=== PATIENT | male | born 1980 | race American Indian/Alaskan Native ===

== ENCOUNTER 2016-12-09 11:22 | Inpatient (IN) | payer MEDICAID ==
[2016-12-09] MEDS ORDERED: ATROVENT IH ONE (12:55)
[2016-12-09] MEDS ORDERED: XOPENEX IH ONE (12:55)
[2016-12-09] MEDS ORDERED: LASIX IV ONE (12:55)
[2016-12-09] MEDS ORDERED: ZOFRAN IV ONE (13:09)
[2016-12-09] MEDS ORDERED: MORPHINE IV ONE (13:09)
--- NOTE | 2016-12-09 13:14 | Emergency Department Report ---
ED Shortness of Breath HPI - General Chief Complaint: Dyspnea/Respdistress Stated Complaint: DIFF BREATHING/CHEST PAIN Time Seen by Provider: 12/09/16 12:46 Source: patient, EMS Mode of arrival: Stretcher Limitations: No Limitations - History of Present Illness Initial Comments: 36 yo male with a past medical history HIV, CHF, COPD, cardiomyopathy, sleep apnea, end-stage disease on dialysis, and hypertension presents to the hospital with complaints of shortness of breath since 4 AM. Use oxygen 4 L OF time and CPAP at night. He states the CPAP helped his breathing until it acutely worsened again at 7 AM. Several days of cough productive of green-yellow sputum reported without fever. Patient typically goes to dialysis Saturday, , and Saturday. This week he went and Saturday due to mixup of the days. Patient complains of generalized body aches and requesting morphine. PMD: Dr. Hernandez parent partner: Dr. Costa - Related Data Home Medications Medication Instructions Recorded Confirmed Last Taken AtorvaSTATin [Lipitor] 40 mg PO DAILY 09/02/16 11/17/16 09/20/16 lamiVUDine [Epivir] 50 mg PO DAILY 09/02/16 11/17/16 09/20/16 Gabapentin [Neurontin] 100 mg PO BID 09/10/16 11/17/16 09/20/16 Previous Rx's Medication Instructions Recorded Last Taken Type Abacavir [Ziagen TAB] 600 mg PO DAILY tablet 11/21/16 Unknown Rx Calcium Acetate [Phoslo] 667 mg PO TIDWM capsule 11/21/16 Unknown Rx Carvedilol [Coreg] 25 mg PO BID tablet 11/21/16 Unknown Rx Dapsone 100 mg PO BID tablet 11/21/16 Unknown Rx Darunavir [Prezista] 800 mg PO DAILY tablet 11/21/16 Unknown Rx Gabapentin [Neurontin] 100 mg PO BID capsule 11/21/16 Unknown Rx Ipratropium/Albuterol Sulfate 1 ampul IH TIDRT ampul.neb 11/21/16 Unknown Rx [Duoneb 0.5 mg-3 mg/3 ml Soln] Isosorbide Dinitrate [Isordil 40 mg PO Q8HR tablet 11/21/16 Unknown Rx Titradose] Levofloxacin [Levaquin TAB] 500 mg PO Q48HR #7 tablet 11/21/16 Unknown Rx Pantoprazole [Protonix TAB] 40 mg PO QDAY tablet 11/21/16 Unknown Rx Ritonavir [Norvir] 100 mg PO QDAY tab 11/21/16 Unknown Rx amLODIPine [Norvasc] 10 mg PO DAILY tablet 11/21/16 Unknown Rx hydrALAZINE [Apresoline TAB] 100 mg PO TID tab 11/21/16 Unknown Rx Allergies Allergy/AdvReac Type Severity Reaction Status Date / Time ILEANA Inhibitors Allergy Swelling Verified 08/13/15 00:13 acetaminophen [From Tylenol] Allergy Hives Verified 08/13/15 00:13 aspirin Allergy Hives Verified 08/13/15 00:13 egg Allergy Hives Verified 08/13/15 00:13 Egg Derived Allergy Hives Verified 08/13/15 00:13 fish derived Allergy Swelling Verified 08/13/15 00:13 ibuprofen Allergy Swelling Verified 08/13/15 00:13 Milk Containing Products Allergy Hives Verified 08/13/15 00:13 orange juice Allergy Hives Verified 08/13/15 00:13 Penicillins Allergy Hives Verified 08/13/15 00:13 PPD black rubber mix Allergy Swelling Verified 08/13/15 00:13 shellfish derived Allergy Hives Verified 08/13/15 00:13 tomato Allergy Vomiting Verified 08/13/15 00:13 ED Review of Systems ROS: Stated complaint: DIFF BREATHING/CHEST PAIN Other details as noted in HPI Comment: All other systems reviewed and negative Other: Constitutional: No fevers chills Eyes: No eye pain visual changes ENT: No ear pain or throat pain Neck: Denies pain Respiratory: As per HPI Cardiovascular: Denies chest pain, palpitations, syncope GI: Denies abdominal pain, nausea, vomiting, diarrhea : Denies dysuria, urine output Musculoskeletal: Denies back pain Skin: Denies rash, lesions, erythema Neurologic: Denies headache, numbness, weakness Psychiatric: Denies suicidal ideation, hallucinations ED Past Medical Hx - Past Medical History Hx Hypertension: Yes Hx Congestive Heart Failure: Yes Hx Diabetes: No Hx Renal Disease: Yes (ESRD on HD; LAV fistula) Hx Asthma: Yes Hx COPD: Yes Hx HIV: Yes Additional medical history: glaucoma, CAD - Surgical History Additional Surgical History: AV fistula L arm - Social History Smoking Status: Light Tobacco Smoker Substance Use Type: Cocaine - Medications Home Medications: Home Medications Medication Instructions Recorded Confirmed Last Taken Type AtorvaSTATin [Lipitor] 40 mg PO DAILY 09/02/16 11/17/16 09/20/16 History lamiVUDine [Epivir] 50 mg PO DAILY 09/02/16 11/17/16 09/20/16 History Gabapentin [Neurontin] 100 mg PO BID 09/10/16 11/17/16 09/20/16 History Abacavir [Ziagen TAB] 600 mg PO DAILY tablet 11/21/16 Unknown Rx Calcium Acetate [Phoslo] 667 mg PO TIDWM capsule 11/21/16 Unknown Rx Carvedilol [Coreg] 25 mg PO BID tablet 11/21/16 Unknown Rx Dapsone 100 mg PO BID tablet 11/21/16 Unknown Rx Darunavir [Prezista] 800 mg PO DAILY tablet 11/21/16 Unknown Rx Gabapentin [Neurontin] 100 mg PO BID capsule 11/21/16 Unknown Rx Ipratropium/Albuterol Sulfate 1 ampul IH TIDRT ampul.neb 11/21/16 Unknown Rx [Duoneb 0.5 mg-3 mg/3 ml Soln] Isosorbide Dinitrate [Isordil 40 mg PO Q8HR tablet 11/21/16 Unknown Rx Titradose] Levofloxacin [Levaquin TAB] 500 mg PO Q48HR #7 tablet 11/21/16 Unknown Rx Pantoprazole [Protonix TAB] 40 mg PO QDAY tablet 11/21/16 Unknown Rx Ritonavir [Norvir] 100 mg PO QDAY tab 11/21/16 Unknown Rx amLODIPine [Norvasc] 10 mg PO DAILY tablet 11/21/16 Unknown Rx hydrALAZINE [Apresoline TAB] 100 mg PO TID tab 11/21/16 Unknown Rx ED Physical Exam - General Limitations: No Limitations - Other Other exam information: General: No limitations, patient is alert in no acute distress Head exam: Atraumatic, normocephalic Eyes exam: Normal appearance, pupils equal reactive to light, extraocular movements intact ENT: Moist mucous membrane, normal oropharynx Neck exam: Normal inspection, full range of motion, no meningismus nontender Respiratory exam: Tachypnea, 88-87% on 4 L. Expiratory wheezing, diminished bs at bases Cardiovascular: Tachycardic regular rhythm Abdomen: Soft, nondistended, and nontender, with normal bowel sounds, no rebound, or guarding Extremity: Full range of motion, bilateral leg edema Back: Normal Inspection, full range of motion, no tenderness Neurologic: Alert, oriented x3, cranial nerves intact, no motor or sensory deficit Psychiatric: normal affect, normal mood Skin: Warm, dry, intact ED Course Vital Signs 12/09/16 12/09/16 12/09/16 12:50 13:15 13:21 Temperature 98.3 F Pulse Rate 115 H 114 H Pulse Rate [ 122 H Anterior Bilateral Throughout] Respiratory 24 37 H Rate Respiratory 37 H Rate [Anterior Bilateral Throughout] Blood Pressure 150/104 150/104 O2 Sat by Pulse 87 100 Oximetry 12/09/16 12/09/16 12/09/16 13:36 13:42 13:45 Temperature Pulse Rate 114 H 113 H Pulse Rate [ 115 H Anterior Bilateral Throughout] Respiratory 31 H 25 H Rate Respiratory 26 H Rate [Anterior Bilateral Throughout] Blood Pressure O2 Sat by Pulse 95 94 Oximetry - Consultations Consultation #1: 12/09/16 13:[address] Jett parent partner will arrange for dialysis today ED Medical Decision Making - Lab Data Result diagrams: 12/09/16 13:17 12/09/16 13:17 Lab Results 12/09/16 12/09/16 12/09/16 Range/Units 13:17 13:17 13:17 WBC 7.7 (4.5-11.0) K/mm3 RBC 3.53 L (3.65-5.03) M/mm3 Hgb 9.0 L (11.8-15.2) gm/dl Hct 29.5 L (35.5-45.6) % MCV 84 (84-94) fl MCH 26 L (28-32) pg MCHC 31 L (32-34) % RDW 24.6 H (13.2-15.2) % Plt Count 246 (140-440) K/mm3 Lymph % (Auto) 6.4 L (13.4-35.0) % Boyle % (Auto) 5.9 (0.0-7.3) % Eos % (Auto) 1.0 (0.0-4.3) % Baso % (Auto) 0.5 (0.0-1.8) % Lymph # 0.5 L (1.2-5.4) K/mm3 Boyle # 0.5 (0.0-0.8) K/mm3 Eos # 0.1 (0.0-0.4) K/mm3 Baso # 0.0 (0.0-0.1) K/mm3 Seg Neutrophils % 86.2 H (40.0-70.0) % Seg Neutrophils # 6.7 (1.8-7.7) K/mm3 Sodium 135 L (137-145) mmol/L Potassium 4.7 (3.6-5.0) mmol/L Chloride 95.7 L (98-107) mmol/L Carbon Dioxide 20 L (22-30) mmol/L Anion Gap 24 mmol/L BUN 67 H (9-20) mg/dL Creatinine 8.7 H (0.8-1.5) mg/dL Estimated GFR 8 ml/min BUN/Creatinine Ratio 7.70 % Glucose 112 H (75-100) mg/dL Calcium 8.8 (8.4-10.2) mg/dL Total Creatine Kinase 63 64 (55-170) units/L CK-MB (CK-2) 2.6 2.6 (0.0-4.0) ng/mL CK-MB (CK-2) Rel Index 4.1 H 4.0 (0-4) Troponin T 0.052 H (0.00-0.029) ng/mL - EKG Data -: EKG Interpreted by Me (sinus tach 114, lat t wave inv) - EKG Data When compared to previous EKG there are: no significant change - Radiology Data Radiology results: image reviewed (chest x-ray portable: Pulmonary edema) - Medical Decision Making Patient required BiPAP support in the ED. Also treated with morphine for pain, lasix, Zofran, Xopenex, Atrovent, and dose of Solu-Medrol. Case is discussed with parent partner and dialysis to be arranged for today. - Differential Diagnosis pulmonary edema, CHF, bronchitis, pneumonia, COPD Critical Care Time: No Critical care attestation.: If time is entered above; I have spent that time in minutes in the direct care of this critically ill patient, excluding procedure time. ED Disposition Clinical Impression: HIV positive, End-stage renal disease needing dialysis, Essential hypertension , O2 dependent Pulmonary edema Qualifiers: Chronicity: acute Qualified Code(s): J81.0 - Acute pulmonary edema COPD (chronic obstructive pulmonary disease) Qualifiers: COPD type: unspecified COPD Qualified Code(s): J44.9 - Chronic obstructive pulmonary disease, unspecified Disposition: OP ADMITTED IP TO THIS HOSP Is pt being admited?: Yes Condition: Stable Time of Disposition: 13:49 (Dr Buenrostro/hosp)
[2016-12-09 13:35] LABS: Basophils % (Auto) 0.5 % (0.0-1.8); Hematocrit 29.5 % (35.5-45.6); Mean Corpuscular HGB Conc 31 % (32-34); Mean Corpuscular Hemoglobin 26 pg (28-32); Mean Corpuscular Volume 84 fl (84-94); Platelet Count 246 K/mm3 (140-440); Red Blood Count 3.53 M/mm3 (3.65-5.03); Red Cell Distribution Width 24.6 % (13.2-15.2); White Blood Count 7.7 K/mm3 (4.5-11.0)
--- NOTE | 2016-12-09 13:35 | XRay Report ---
AP CHEST: HISTORY: Shortness of breath Moderate cardiomegaly and mild pulmonary edema are identified. Trace pleural effusions could be present. No pneumothorax. IMPRESSION: Cardiomegaly and pulmonary edema.
[2016-12-09] MEDS ORDERED: NACL 0.9% 1000 ML 100 ML IV PRN (13:48)
[2016-12-09 13:53] LABS: Creatine Kinase MB 2.6 ng/mL (0.0-4.0)
[2016-12-09 13:54] LABS: Creatine Kinase MB 2.6 ng/mL (0.0-4.0)
[2016-12-09 13:55] LABS: Blood Urea Nitrogen 67 mg/dL (9-20); Calcium 8.8 mg/dL (8.4-10.2); Carbon Dioxide 20 mmol/L (22-30); Chloride 95.7 mmol/L (98-107); Creatine Kinase 63 units/L (55-170); Glucose 112 mg/dL (75-100); Potassium 4.7 mmol/L (3.6-5.0); Sodium 135 mmol/L (137-145)
[2016-12-09 13:58] LABS: Anion Gap 24 mmol/L
[2016-12-09 14:14] LABS: Cholesterol 102 mg/dL (50-199); HDL Cholesterol 44 mg/dL (40-59); LDL Cholesterol,Direct 41 mg/dL (50-130); Triglycerides 86 mg/dL (2-149)
--- NOTE | 2016-12-09 15:56 | History and Physical Report ---
History of Present Illness Date of examination: 12/09/16 History of present illness: 36-year-old man with a history of hypertension, end-stage renal disease on dialysis, Saturday, , Saturday, coronary artery disease, HIV with CD4 count of 275, asthma comes to the emergency room with complaints of shortness of breath. Patient missed hemodialysis yesterday. Also complain of chest pain . Pain in the epigastric area which she describes as crushing pain, constant, radiating to bilateral chest , intensity 5/10 and he cannot identify exacerbating or relieving factors. He admits to nausea vomiting, 4 times, palpitations. He has a history of cocaine use last use was a week ago. Patient state he has a hernia on the right side of the abdomen, he has been having increasing pain in that area. He describes it as sharp pain, intermittent in nature lasting for 5 minutes, intensity 6/10, no radiation, better with pain medication, cannot identify exacerbating factor Patient denies cough, abdominal pain, hematochezia, dysuria, frequency, focal weakness, dysarthria, fever chills, polydipsia polyuria, hot or cold intolerance , easy bruisability, or rash or bleeding from mucosal membrane, rhinorrhea, epistaxis, earache, tinnitus, blurry vision, eye discharge, anxiety, depression. Other review of systems negative Past surgical history: AV fistula Social history: Smoke a pack a week, cocaine use, no alcohol Family history: Hypertension Medications and Allergies Allergies Allergy/AdvReac Type Severity Reaction Status Date / Time ILEANA Inhibitors Allergy Swelling Verified 08/13/15 00:13 acetaminophen [From Tylenol] Allergy Hives Verified 08/13/15 00:13 aspirin Allergy Hives Verified 08/13/15 00:13 egg Allergy Hives Verified 08/13/15 00:13 Egg Derived Allergy Hives Verified 08/13/15 00:13 fish derived Allergy Swelling Verified 08/13/15 00:13 ibuprofen Allergy Swelling Verified 08/13/15 00:13 Milk Containing Products Allergy Hives Verified 08/13/15 00:13 orange juice Allergy Hives Verified 08/13/15 00:13 Penicillins Allergy Hives Verified 08/13/15 00:13 PPD black rubber mix Allergy Swelling Verified 08/13/15 00:13 shellfish derived Allergy Hives Verified 08/13/15 00:13 tomato Allergy Vomiting Verified 08/13/15 00:13 Home Medications Medication Instructions Recorded Confirmed Last Taken Type AtorvaSTATin [Lipitor] 40 mg PO DAILY 09/02/16 12/12/16 09/20/16 History lamiVUDine [Epivir] 50 mg PO DAILY 09/02/16 12/12/16 09/20/16 History Abacavir [Ziagen TAB] 600 mg PO DAILY tablet 11/21/16 12/12/16 Unknown Rx Calcium Acetate [Phoslo] 667 mg PO TIDWM capsule 11/21/16 12/12/16 Unknown Rx Carvedilol [Coreg] 25 mg PO BID tablet 11/21/16 12/12/16 Unknown Rx Dapsone 100 mg PO BID tablet 11/21/16 12/12/16 Unknown Rx Darunavir [Prezista] 800 mg PO DAILY tablet 11/21/16 12/12/16 Unknown Rx Gabapentin [Neurontin] 100 mg PO BID capsule 11/21/16 12/12/16 Unknown Rx Ipratropium/Albuterol Sulfate 1 ampul IH TIDRT ampul.neb 11/21/16 12/12/16 Unknown Rx [Duoneb 0.5 mg-3 mg/3 ml Soln] Isosorbide Dinitrate [Isordil 40 mg PO Q8HR tablet 11/21/16 12/12/16 Unknown Rx Titradose] Levofloxacin [Levaquin TAB] 500 mg PO Q48HR #7 tablet 11/21/16 12/12/16 Unknown Rx Pantoprazole [Protonix TAB] 40 mg PO QDAY tablet 11/21/16 12/12/16 Unknown Rx Ritonavir [Norvir] 100 mg PO QDAY tab 11/21/16 12/12/16 Unknown Rx amLODIPine [Norvasc] 10 mg PO DAILY tablet 11/21/16 12/12/16 Unknown Rx hydrALAZINE [Apresoline TAB] 100 mg PO TID tab 11/21/16 12/12/16 Unknown Rx Active Meds: Active Medications Sodium Chloride (Nacl 0.9% 1000 Ml) 100 mls @ 999 mls/hr IV SARAY PRN PRN Reason: Hypotension Exam - Physical Exam Narrative exam: Gen. appearance: Patient lying in bed, no apparent distress HEENT: Normocephalic, atraumatic, pupils equally round and reactive to light, extraocular movement intact, and no sclericterus,. No JVD or thyromegaly or nodule,neck supple, no carotid bruit ,mucous membranes moist, no exudate or erythema Heart: S1, S2, regular rate and rhythm Lungs: Clear to auscultation bilaterally, breathing comfortable Abdomen: Positive bowel sounds, tender right lower abdomen, nondistended, no organomegaly Extremity: No edema, cyanosis, clubbing Skin: No rash, nodules, warm, dry Neuro: Oriented 3, cranial nerves II-12 intact, speech is fluent, motor and sensory intact - Constitutional Vitals: Temp Pulse Resp BP Pulse Ox 98.3 F 109 H 22 140/90 93 12/09/16 12:50 12/09/16 14:00 12/09/16 14:00 12/09/16 14:00 12/09/16 14:00 Results - Labs CBC & Chem 7: 12/11/16 05:06 12/11/16 05:06 Labs: Abnormal lab results 12/09/16 12/09/16 Range/Units 13:17 13:17 RBC 3.53 L (3.65-5.03) M/mm3 Hgb 9.0 L (11.8-15.2) gm/dl Hct 29.5 L (35.5-45.6) % MCH 26 L (28-32) pg MCHC 31 L (32-34) % RDW 24.6 H (13.2-15.2) % Lymph % (Auto) 6.4 L (13.4-35.0) % Lymph # 0.5 L (1.2-5.4) K/mm3 Seg Neutrophils % 86.2 H (40.0-70.0) % Sodium 135 L (137-145) mmol/L Chloride 95.7 L (98-107) mmol/L Carbon Dioxide 20 L (22-30) mmol/L BUN 67 H (9-20) mg/dL Creatinine 8.7 H (0.8-1.5) mg/dL Glucose 112 H (75-100) mg/dL CK-MB (CK-2) Rel Index 4.1 H (0-4) Troponin T 0.052 H (0.00-0.029) ng/mL NT-Pro-B Natriuret Pep > 10858 H (0-450) pg/mL LDL Cholesterol Direct 41 L (50-130) mg/dL - Imaging and Cardiology EKG: image reviewed Chest x-ray: report reviewed Assessment and Plan Acute on chronic respiratory failure Fluid Overload secondary to missed hemodialysis Abdominal pain Chest pain ESRD Hypertension HIV Admit to medicine Consult renal emergent dialysis, continue BIPAP Check cardiac enzymes,d-dimer, consult cardiology, Check CT abdomen, IV morphine for pain Continue appropiate outpatient medications Start dvt prophalaxis
[2016-12-09] MEDS ORDERED: SODIUM CHLORIDE FLUSH SYRINGE 10 ML IV PRN (20:32)
[2016-12-09] MEDS ORDERED: DULCOLAX PR PRN (20:32)
--- NOTE | 2016-12-09 21:08 | Cat Scan Report ---
FINAL REPORT EXAM: CT ABDOMEN PELVIS WO CON HISTORY: rlq pain TECHNIQUE: CT abdomen and pelvis without contrast PRIORS: None. FINDINGS: Demonstrated are ground-glass opacities within both lower lobes likely reflecting pulmonary edema. There is small right pleural effusion present There is diffuse body wall edema likely reflecting anasarca Liver appears enlarged. There is small amount of ascites present with perihepatic an pelvic fluid present. Liver is mildly enlarged measuring 13.3 centimeters in length. No peripancreatic inflammatory changes are seen. The kidneys are atrophic right kidney 7.7 centimeters in length. Left kidney 7.2 centimeters in length. No evidence for colonic or small bowel distention There is a right periumbilical hernia containing fatty tissue. No bowel loops within the hernia sac. Urinary bladder is unremarkable. IMPRESSION: Bilateral lower lobe ground-glass opacities likely reflecting pulmonary edema Small amount of ascites Diffuse body wall edema Findings suggest anasarca Hepatomegaly Atrophic kidneys Periumbilical ventral abdominal wall hernia containing fatty tissue
[2016-12-09] MEDS: MORPHINE IV PRN (22:31)
[2016-12-09] MEDS: ZOFRAN IV PRN (22:31)
[2016-12-09 22:32] LABS: Creatine Kinase MB 2.6 ng/mL (0.0-4.0)
[2016-12-10] MEDS: MORPHINE IV PRN ×4 (03:48→21:07)
[2016-12-10] MEDS: HABITROL TD SCH (06:32)
[2016-12-10 07:23] LABS: Basophils % (Auto) 0.1 % (0.0-1.8); Hematocrit 26.6 % (35.5-45.6); Hemoglobin 8.2 gm/dl (11.8-15.2); Mean Corpuscular HGB Conc 31 % (32-34); Mean Corpuscular Volume 84 fl (84-94); Platelet Count 221 K/mm3 (140-440); Red Blood Count 3.17 M/mm3 (3.65-5.03); White Blood Count 5.7 K/mm3 (4.5-11.0)
[2016-12-10 07:34] LABS: BUN/Creatinine Ratio 7.7; Calcium 8.4 mg/dL (8.4-10.2); Chloride 93.4 mmol/L (98-107); Potassium 4.8 mmol/L (3.6-5.0)
[2016-12-10 07:38] LABS: Mean Corpuscular Hemoglobin 26 pg (28-32); Red Cell Distribution Width 23.9 % (13.2-15.2)
--- NOTE | 2016-12-10 09:59 | Progress Note ---
Objective - Vital Signs Vital signs: Vital Signs - 12hr 12/09/16 12/10/16 12/10/16 22:58 00:00 01:00 Temperature 97.5 F L Pulse Rate 113 H Pulse Rate [ 97 H Left] Pulse Rate [ Right Radial] Respiratory 22 22 Rate Blood Pressure Blood Pressure 149/85 [Left Arm] Blood Pressure [Right Arm] O2 Sat by Pulse 98 96 Oximetry 12/10/16 12/10/16 12/10/16 02:42 06:00 06:31 Temperature 98.6 F Pulse Rate 92 H 90 Pulse Rate [ 105 H Left] Pulse Rate [ Right Radial] Respiratory 25 H 21 Rate Blood Pressure 149/85 Blood Pressure 155/97 [Left Arm] Blood Pressure [Right Arm] O2 Sat by Pulse 97 100 Oximetry 12/10/16 07:55 Temperature 97.6 F Pulse Rate Pulse Rate [ Left] Pulse Rate [ 94 H Right Radial] Respiratory 20 Rate Blood Pressure Blood Pressure [Left Arm] Blood Pressure 136/83 [Right Arm] O2 Sat by Pulse 100 Oximetry - Lab 12/10/16 06:58 12/10/16 06:58 Most recent lab results Calcium 8.4 mg/dL (8.4-10.2) 12/10/16 06:58
--- NOTE | 2016-12-10 10:01 | Consultation ---
History of Present Illness - History of Present Illness THANK YOU FOR THE CONSULTATION history of presenting illness; Patient is 36-year-old -[place] gentleman who is currently established with Dr. Costa for his ESRD care. Patient say that he got confused for his dialysis days and subsequently had missed one outpatient dialysis treatment and presented to hospital with complaints of increasing shortness of breath symptoms of cough and congestion for which she did receive one hemodialysis treatment after which she feels much better but he still continues to have significant swelling in both lower extremity.. Patient does not tell me approximately homage fluid is removed 80s treatment. He denies any complaints of fever or chills. Overall he feels much better after the hemodialysis treatment *Medical history significant for End-stage renal disease currently in maintenance hemanalysis Anemia and end-stage renal disease Secondary hyperparathyroidism HIV disease Sleep apnea Congestive heart failure Cardiomyopathy Current allergies: Reviewed Home medication present medication: Reviewed Social history: Patient denies any history of drug or substance abuse Family history: Not significant for renal lipid disorder review of systems positive for poor compliance with diet fluid and lifestyle. Increasing shortness of breath increasing edema in both lower extremity currently feeling better after dialysis review of systems negative for all other systems otherwise. Patient was evaluated today Status post hemodialysis as of yesterday as he informs me Assessment and plan End-stage renal disease in a patient who still continues to have approximately 2 + edema despite dialysis yesterday outpatient dialysis treatment he missed likely noncompliant Patient is in no need for immediate our urgent renal replacement therapy today and will give him a longer dialysis treatment tomorrow with hopefully removing about 4-4 in a half kilos of fluid as tolerated Dietary counseling and education was done at length to improve outcome with end- stage renal disease and fluid overload Anemia and end-stage renal disease to follow keep goal hemoglobin between 10 and 12 secondary hyperparathyroidism monitor phosphorus and PTH periodically current hemoglobin is around 8.2 history of underlying HIV disease to follow up with infectious disease specialist History of congestive heart disease and cardiomyopathy with underlying sleep apnea Patient also does have history of CPAP use he may be at risk for pulmonary hypertension for which she will need to follow patient will 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 Costa upon discharge for follow -up We'll continue to follow make recommendation from renal standpoint Prognosis will depend on the degree of compliance from the patient Medications and Allergies Allergies Allergy/AdvReac Type Severity Reaction Status Date / Time ILEANA Inhibitors Allergy Swelling Verified 08/13/15 00:13 acetaminophen [From Tylenol] Allergy Hives Verified 08/13/15 00:13 aspirin Allergy Hives Verified 08/13/15 00:13 egg Allergy Hives Verified 08/13/15 00:13 Egg Derived Allergy Hives Verified 08/13/15 00:13 fish derived Allergy Swelling Verified 08/13/15 00:13 ibuprofen Allergy Swelling Verified 08/13/15 00:13 Milk Containing Products Allergy Hives Verified 08/13/15 00:13 orange juice Allergy Hives Verified 08/13/15 00:13 Penicillins Allergy Hives Verified 08/13/15 00:13 PPD black rubber mix Allergy Swelling Verified 08/13/15 00:13 shellfish derived Allergy Hives Verified 08/13/15 00:13 tomato Allergy Vomiting Verified 08/13/15 00:13 Home Medications Medication Instructions Recorded Confirmed Last Taken Type AtorvaSTATin [Lipitor] 40 mg PO DAILY 09/02/16 12/09/16 12/09/16 History lamiVUDine [Epivir] 50 mg PO DAILY 09/02/16 12/09/16 12/09/16 History Abacavir [Ziagen TAB] 600 mg PO DAILY tablet 11/21/16 12/09/16 12/09/16 Rx Calcium Acetate [Phoslo] 667 mg PO TIDWM capsule 11/21/16 12/09/16 12/09/16 Rx Carvedilol [Coreg] 25 mg PO BID tablet 11/21/16 12/09/16 12/09/16 Rx Dapsone 100 mg PO BID tablet 11/21/16 12/09/16 Rx Darunavir [Prezista] 800 mg PO DAILY tablet 11/21/16 12/09/16 12/09/16 Rx Gabapentin [Neurontin] 100 mg PO BID capsule 11/21/16 12/09/16 12/09/16 Rx Ipratropium/Albuterol Sulfate 1 ampul IH TIDRT ampul.neb 11/21/16 12/09/16 Rx [Duoneb 0.5 mg-3 mg/3 ml Soln] Isosorbide Dinitrate [Isordil 40 mg PO Q8HR tablet 11/21/16 12/09/16 12/09/16 Rx Titradose] Levofloxacin [Levaquin TAB] 500 mg PO Q48HR #7 tablet 11/21/16 12/09/16 Rx Pantoprazole [Protonix TAB] 40 mg PO QDAY tablet 11/21/16 12/09/16 12/09/16 Rx Ritonavir [Norvir] 100 mg PO QDAY tab 11/21/16 12/09/16 12/09/16 Rx amLODIPine [Norvasc] 10 mg PO DAILY tablet 11/21/16 12/09/16 12/09/16 Rx hydrALAZINE [Apresoline TAB] 100 mg PO TID tab 11/21/16 12/09/16 12/09/16 Rx Active Meds: Active Medications Bisacodyl (Dulcolax) 10 mg KS QDAY PRN PRN Reason: Constipation unrelieved by MOM Enoxaparin Sodium (Lovenox) 30 mg SUB-Q QDAY [facility] Sodium Chloride (Nacl 0.9% 1000 Ml) 100 mls @ 999 mls/hr IV SARAY PRN PRN Reason: Hypotension Morphine Sulfate (Morphine) 2 mg IV Q4H PRN PRN Reason: Pain, Moderate (4-6) Last Admin: 12/10/16 03:48 Dose: 2 mg Nicotine (Habitrol) 21 mg TD QDAY [facility] Last Admin: 12/10/16 06:32 Dose: Not Given Ondansetron HCl (Zofran) 4 mg IV Q8H PRN PRN Reason: N/V unrelieved by Reglan Last Admin: 12/09/16 22:31 Dose: 4 mg Sodium Chloride (Sodium Chloride Flush Syringe 10 Ml) 10 ml IV PRN PRN PRN Reason: LINE FLUSH Exam - Vital Signs Vital signs: Vital Signs Temp Pulse Resp BP Pulse Ox 98.3 F 115 H 24 150/104 87 12/09/16 12:50 12/09/16 12:50 12/09/16 12:50 12/09/16 12:50 12/09/16 12:50 Results - Lab Results 12/10/16 06:58 12/10/16 06:58 Most recent lab results Calcium 8.4 mg/dL (8.4-10.2) 12/10/16 06:58
[2016-12-10] MEDS: LOVENOX SUB-Q SCH (10:08)
--- NOTE | 2016-12-10 11:21 | Admit Criteria Form ---
Admission Criteria Documentation: RESPIRATORY FAILURE GRG Clinical Indications for Admission to Inpatient Care (Place 'X' for any and all applicable criteria): Hospital admission is needed for appropriate care of the patient because of acute respiratory failure or insufficiency as indicated by ANY ONE of the following(1)(2)(3)(4)(5)(6)(7)(8): [ X]I. Mechanical ventilation needed (acute invasive or noninvasive) [ ]II. Severe ventilation deficit as indicated by ANY ONE of the following (9) [ ]a) Respiratory acidosis (pH less than 7.32 and partial pressure of carbon dioxide greater than 40 mm Hg (5.3 kPa)) [ ]b) Partial pressure of carbon dioxide greater than 44 mm Hg (5.9 kPa ) (new) [ ]c) Airflow measurements less than 25% of predicted (eg, peak expiratory flow rate less than 100 L/minute) [ ]d) Forced vital capacity less than 15 mL/kg of ideal body weight, or 50% decrease in vital capacity from baseline [ ]III. Noncardiac pulmonary edema not resolving with rapid emergency treatment (8) [ X]IV. Severe respiratory distress as indicated by ANY ONE of the following: [X ]a) Severe tachypnea (respiratory rate greater than 30, greater than 45 for 6-month-old, greater than 60 for ) [ ]b) Severe hypoxemia (partial pressure of oxygen less than 50 mm Hg ( 6.7 kPa) on greater than 50% oxygen or partial pressure of oxygen to FIO2 ratio less than 200) [ ]c) Mental status deterioration from respiratory disease [ ]V. Airway obstruction or inadequate protection [A](10)(11) The original [employer] content created by [employer] has been revised. The portions of the content which have been revised are identified through the use of italic text or in bold, and [facility] has neither reviewed nor approved the modified material. All other unmodified content is copyright [employer]. Please see references footnoted in the original [employer] edition 2016 Admission Criteria Met: Yes
--- NOTE | 2016-12-10 12:06 | Consultation ---
History of Present Illness Consult date: 12/10/16 Requesting physician: DAYSI CURRY Consult reason: shortness of breath History of present illness: This is a 36-year-old male with multiple medical problems who normally receives all of his care at [facility] who presents today after missing the day of dialysis and develops acute on chronic systolic heart failure and volume overload. He has unknown past medical history of a nonischemic cardiomyopathy, chronic systolic heart failure, hypertension, history of cocaine use, HIV disease, asthma, sleep apnea, and end-stage renal disease on hemodialysis Tuesdays and Saturdays. In the emergency department the patient had a proBNP of 35,000. He also had a hemoglobin of 8.2. A CT of the abdomen and pelvis revealed bilateral lower lobe groundglass opacities likely reflected pulmonary edema ascites and anasarca and a periumbilical ventral abdominal wall hernia. A chest x-ray was consistent with pulmonary vascular congestion and pulmonary edema. Past History Past Medical History: dialysis, ESRD, heart failure, HIV/AIDS, hypertension, renal failure Social history: smoking, IV drug use (cocaine abuse). denies: alcohol abuse Family history: diabetes, hypertension Medications and Allergies Allergies Allergy/AdvReac Type Severity Reaction Status Date / Time ILEANA Inhibitors Allergy Swelling Verified 08/13/15 00:13 acetaminophen [From Tylenol] Allergy Hives Verified 08/13/15 00:13 aspirin Allergy Hives Verified 08/13/15 00:13 egg Allergy Hives Verified 08/13/15 00:13 Egg Derived Allergy Hives Verified 08/13/15 00:13 fish derived Allergy Swelling Verified 08/13/15 00:13 ibuprofen Allergy Swelling Verified 08/13/15 00:13 Milk Containing Products Allergy Hives Verified 08/13/15 00:13 orange juice Allergy Hives Verified 08/13/15 00:13 Penicillins Allergy Hives Verified 08/13/15 00:13 PPD black rubber mix Allergy Swelling Verified 08/13/15 00:13 shellfish derived Allergy Hives Verified 08/13/15 00:13 tomato Allergy Vomiting Verified 08/13/15 00:13 Home Medications Medication Instructions Recorded Confirmed Last Taken Type AtorvaSTATin [Lipitor] 40 mg PO DAILY 09/02/16 12/09/16 12/09/16 History lamiVUDine [Epivir] 50 mg PO DAILY 09/02/16 12/09/16 12/09/16 History Abacavir [Ziagen TAB] 600 mg PO DAILY tablet 11/21/16 12/09/16 12/09/16 Rx Calcium Acetate [Phoslo] 667 mg PO TIDWM capsule 11/21/16 12/09/16 12/09/16 Rx Carvedilol [Coreg] 25 mg PO BID tablet 11/21/16 12/09/16 12/09/16 Rx Dapsone 100 mg PO BID tablet 11/21/16 12/09/16 Rx Darunavir [Prezista] 800 mg PO DAILY tablet 11/21/16 12/09/16 12/09/16 Rx Gabapentin [Neurontin] 100 mg PO BID capsule 11/21/16 12/09/16 12/09/16 Rx Ipratropium/Albuterol Sulfate 1 ampul IH TIDRT ampul.neb 11/21/16 12/09/16 Rx [Duoneb 0.5 mg-3 mg/3 ml Soln] Isosorbide Dinitrate [Isordil 40 mg PO Q8HR tablet 11/21/16 12/09/16 12/09/16 Rx Titradose] Levofloxacin [Levaquin TAB] 500 mg PO Q48HR #7 tablet 11/21/16 12/09/16 Rx Pantoprazole [Protonix TAB] 40 mg PO QDAY tablet 11/21/16 12/09/16 12/09/16 Rx Ritonavir [Norvir] 100 mg PO QDAY tab 11/21/16 12/09/16 12/09/16 Rx amLODIPine [Norvasc] 10 mg PO DAILY tablet 11/21/16 12/09/16 12/09/16 Rx hydrALAZINE [Apresoline TAB] 100 mg PO TID tab 11/21/16 12/09/16 12/09/16 Rx Active Meds: Active Medications Bisacodyl (Dulcolax) 10 mg TN QDAY PRN PRN Reason: Constipation unrelieved by MOM Enoxaparin Sodium (Lovenox) 30 mg SUB-Q QDAY AUDELIA Last Admin: 12/10/16 10:08 Dose: Not Given Sodium Chloride (Nacl 0.9% 1000 Ml) 100 mls @ 999 mls/hr IV SARAY PRN PRN Reason: Hypotension Morphine Sulfate (Morphine) 2 mg IV Q4H PRN PRN Reason: Pain, Moderate (4-6) Last Admin: 12/10/16 10:02 Dose: 2 mg Nicotine (Habitrol) 21 mg TD QDAY AUDELIA Last Admin: 12/10/16 06:32 Dose: Not Given Ondansetron HCl (Zofran) 4 mg IV Q8H PRN PRN Reason: N/V unrelieved by Reglan Last Admin: 12/09/16 22:31 Dose: 4 mg Sodium Chloride (Sodium Chloride Flush Syringe 10 Ml) 10 ml IV PRN PRN PRN Reason: LINE FLUSH Review of Systems Constitutional: no weight loss, no weight gain, no fever, no chills, no sweats Ears, nose, mouth and throat: no tinnitis, no decreased hearing Cardiovascular: chest pain, orthopnea, edema, lightheadedness, shortness of breath, no palpitations, no syncope Respiratory: cough with sputum, dyspnea on exertion Gastrointestinal: nausea, vomiting Genitourinary Male: urinary frequency, no hematuria Rectal: no pain, no incontinence Musculoskeletal: no neck stiffness, no neck pain Integumentary: no rash, no pruritis Neurological: no paralysis, no weakness Psychiatric: no anxiety, no memory loss Endocrine: no cold intolerance, no heat intolerance Hematologic/Lymphatic: no easy bruising, no easy bleeding Allergic/Immunologic: no urticaria, no allergic rhinitis Physical Examination Vital Signs Temp Pulse Resp BP Pulse Ox 98.3 F 115 H 24 150/104 87 12/09/16 12:50 12/09/16 12:50 12/09/16 12:50 12/09/16 12:50 12/09/16 12:50 General appearance: no acute distress HEENT: Positive: PERRL, EOMI Neck: Positive: neck supple, trachea midline Cardiac: Positive: Reg Rate and Rhythm Lungs: Positive: Decreased Breath Sounds, Rales Neuro: Positive: Grossly Intact Abdomen: Positive: Soft, Ascites, Distended Male genitourinary: Positive: deferred Skin: Negative: Rash, Suspicious Lesions Extremities: Present: edema, warm Results 12/10/16 06:58 12/10/16 06:58 Cardiac Enzymes 12/09/16 Range/Units 19:05 CK-MB (CK-2) 2.6 (0.0-4.0) ng/mL CBC 12/10/16 Range/Units 06:58 WBC 5.7 (4.5-11.0) K/mm3 RBC 3.17 L (3.65-5.03) M/mm3 Hgb 8.2 L (11.8-15.2) gm/dl Hct 26.6 L (35.5-45.6) % Plt Count 221 (140-440) K/mm3 Lymph # 0.4 L (1.2-5.4) K/mm3 [place] # 0.6 (0.0-0.8) K/mm3 Eos # 0.0 (0.0-0.4) K/mm3 Baso # 0.0 (0.0-0.1) K/mm3 Comprehensive Metabolic Panel 12/10/16 Range/Units 06:58 Sodium 135 L (137-145) mmol/L Potassium 4.8 (3.6-5.0) mmol/L Chloride 93.4 L (98-107) mmol/L Carbon Dioxide 25 (22-30) mmol/L BUN 57 H (9-20) mg/dL Creatinine 7.4 H (0.8-1.5) mg/dL Glucose 165 H (75-100) mg/dL Calcium 8.4 (8.4-10.2) mg/dL - Imaging and Cardiology Stress echo: report reviewed (Myocardial Perfusion Scan 01/10: No ischemia, EF 32%) Echo: report reviewed (ECHO 01/10: moderate LAE, mild MR, EF 20-25%) EKG interpretations - Telemetry EKG Rhythm: Sinus Rhythm Assessment and Plan 36-year-old male who was admitted with acute on chronic systolic heart failure and volume overload secondary to missing dialysis treatments. Of note the patient receives all of his care from [facility]. Chronic systolic heart failure Agree with dialysis treatments Patient also reports that he does make urine would likely start IV diuretic if okay with nephrology Patient has an allergy to ILEANA inhibitor as however would restart his beta taya Anemia Likely secondary to anemia of chronic disease Nonischemic cardiomyopathy Hypertension Cocaine abuse HIV disease Asthma Sleep apnea End-stage renal disease on hemodialysis Tuesdays and Saturdays
[2016-12-10 14:32] LABS: Creatine Kinase MB 2.5 ng/mL (0.0-4.0)
--- NOTE | 2016-12-10 15:02 | Progress Note ---
Assessment and Plan Assessment and plan: --Acute on chronic respiratory failure Intended to missed hemodialysis and fluid overload Oxygen titrated to O2 sats more than 90% BiPAP as needed Nebulizers --End Stage renal disease on hemodialysis None complaints, fluid overload Nephrology consultation and hemodialysis per schedule --Chronic systolic congestive heart failure ejection fraction 32% Hemodialysis for fluid removal IV diuretics as needed, and beta blockers, no ILEANA inhibitor status patient is allergic to is medication fluid restriction and input-output monitoring --Atypical chest pain/with elevated troponin Secondary to congestive heart failure and fluid overload/ESRD Supportive care, cardiology following, isn't negative stress test --Elevated D dimers; in the setting of chest pain and shortness of breath Rule out PE, check CT angiogram of the chest, check LE venous Doppler rule out DVT --Hypertension moderate control Resume home antihypertensives and when necessary medications --Chronic anemia secondary to end-stage renal disease Closely monitor transfuse as needed Procrit during dialysis --History of HIV, resume home antiretrovirals Stable, consider ID evaluation if needed --DVT prophylaxis heparin DC planning to case management Patient usually follows up [place] Consults and recommendations noted and appreciated Plan of care discussed with the patient, his nurse as well as the case management History Interval history: Reason seen and evaluated medical records reviewed Patient complains of mild shortness of breath, feels much better Denies any chest pain or palpitations Alert awake oriented 3 not in acute distress Hospitalist Physical - Constitutional Vitals: Temp Pulse Resp BP Pulse Ox 96.9 F L 98 H 20 125/72 99 12/10/16 13:10 12/10/16 13:10 12/10/16 13:10 12/10/16 13:10 12/10/16 13:10 General appearance: Present: no acute distress, well-nourished, obese - EENT Eyes: Present: PERRL, EOM intact - Neck Neck: Present: supple, normal ROM - Respiratory Respiratory effort: normal Respiratory: bilateral: diminished, rales, negative: rhonchi, wheezing - Cardiovascular Rhythm: regular Heart Sounds: Present: S1 & S2 - Extremities Extremities: no ischemia, pulses intact, pulses symmetrical Peripheral Pulses: within normal limits - Abdominal General gastrointestinal: soft, non-tender, non-distended, normal bowel sounds - Integumentary Integumentary: Present: clear, warm - Psychiatric Psychiatric: appropriate mood/affect, cooperative - Neurologic Neurologic: CNII-XII intact, moves all extremities Results - Labs CBC & Chem 7: 12/10/16 06:58 12/10/16 06:58 Labs: Laboratory Last Values WBC 5.7 K/mm3 (4.5-11.0) 12/10/16 06:58 RBC 3.17 M/mm3 (3.65-5.03) L 12/10/16 06:58 Hgb 8.2 gm/dl (11.8-15.2) L 12/10/16 06:58 Hct 26.6 % (35.5-45.6) L 12/10/16 06:58 MCV 84 fl (84-94) 12/10/16 06:58 MCH 26 pg (28-32) L 12/10/16 06:58 MCHC 31 % (32-34) L 12/10/16 06:58 RDW 23.9 % (13.2-15.2) H 12/10/16 06:58 Plt Count 221 K/mm3 (140-440) 12/10/16 06:58 Lymph % (Auto) 7.8 % (13.4-35.0) L 12/10/16 06:58 [place] % (Auto) 10.0 % (0.0-7.3) H 12/10/16 06:58 Eos % (Auto) 0.0 % (0.0-4.3) 12/10/16 06:58 Baso % (Auto) 0.1 % (0.0-1.8) 12/10/16 06:58 Lymph # 0.4 K/mm3 (1.2-5.4) L 12/10/16 06:58 [place] # 0.6 K/mm3 (0.0-0.8) 12/10/16 06:58 Eos # 0.0 K/mm3 (0.0-0.4) 12/10/16 06:58 Baso # 0.0 K/mm3 (0.0-0.1) 12/10/16 06:58 Seg Neutrophils % 82.1 % (40.0-70.0) H 12/10/16 06:58 Seg Neutrophils # 4.7 K/mm3 (1.8-7.7) 12/10/16 06:58 D-Dimer 1236.54 ng/mlDDU (0-234) H 12/09/16 17:38 Sodium 135 mmol/L (137-145) L 12/10/16 06:58 Potassium 4.8 mmol/L (3.6-5.0) 12/10/16 06:58 Chloride 93.4 mmol/L (98-107) L 12/10/16 06:58 Carbon Dioxide 25 mmol/L (22-30) 12/10/16 06:58 Anion Gap 21 mmol/L 12/10/16 06:58 BUN 57 mg/dL (9-20) H 12/10/16 06:58 Creatinine 7.4 mg/dL (0.8-1.5) H 12/10/16 06:58 Estimated GFR 10 ml/min 12/10/16 06:58 BUN/Creatinine Ratio 7.70 % 12/10/16 06:58 Glucose 165 mg/dL (75-100) H 12/10/16 06:58 Calcium 8.4 mg/dL (8.4-10.2) 12/10/16 06:58 Total Creatine Kinase 49 units/L (55-170) L 12/10/16 06:58 CK-MB (CK-2) 2.5 ng/mL (0.0-4.0) 12/10/16 06:58 CK-MB (CK-2) Rel Index 5.1 (0-4) H 12/10/16 06:58 Troponin T 0.044 ng/mL (0.00-0.029) H 12/10/16 06:58 NT-Pro-B Natriuret Pep > 37737 pg/mL (0-450) H 12/09/16 13:17 Triglycerides 86 mg/dL (2-149) 12/09/16 13:17 Cholesterol 102 mg/dL (50-199) 12/09/16 13:17 LDL Cholesterol Direct 41 mg/dL (50-130) L 12/09/16 13:17 HDL Cholesterol 44 mg/dL (40-59) 12/09/16 13:17 Cholesterol/HDL Ratio 2.31 % 12/09/16 13:17
[2016-12-10] MEDS: PHOSLO PO SCH (17:15)
[2016-12-10] MEDS ORDERED: XYLOCAINE 2% INFILTRATI ONE (18:43)
[2016-12-10] MEDS: NEURONTIN PO SCH (21:08)
[2016-12-10] MEDS: COREG PO SCH (21:09)
[2016-12-10] MEDS: ISORDIL TITRADOSE PO SCH (21:10)
[2016-12-10] MEDS: APRESOLINE PO SCH (21:10)
[2016-12-10] MEDS: DAPSONE PO SCH (21:10)
[2016-12-10] MEDS: DUONEB 0.5 MG-3 MG/3 ML SOLN IH SCH (21:10)
[2016-12-11] MEDS ORDERED: XYLOCAINE TOPICAL 2% TP ONE (00:03)
[2016-12-11] MEDS: MORPHINE IV PRN ×6 (02:26→23:25)
[2016-12-11 05:53] LABS: Basophils % (Auto) 0.2 % (0.0-1.8); Eosinophils % (Auto) 0.4 % (0.0-4.3); Hematocrit 27.7 % (35.5-45.6); Hemoglobin 8.5 gm/dl (11.8-15.2); Mean Corpuscular HGB Conc 31 % (32-34); Mean Corpuscular Volume 83 fl (84-94); Platelet Count 209 K/mm3 (140-440); Red Blood Count 3.32 M/mm3 (3.65-5.03)
[2016-12-11 05:54] LABS: BUN/Creatinine Ratio 8.57; Calcium 7.7 mg/dL (8.4-10.2); Chloride 92.6 mmol/L (98-107); Potassium 4.9 mmol/L (3.6-5.0)
[2016-12-11 05:57] LABS: Mean Corpuscular Hemoglobin 26 pg (28-32); Red Cell Distribution Width 23.4 % (13.2-15.2)
[2016-12-11] MEDS: DUONEB 0.5 MG-3 MG/3 ML SOLN IH SCH ×3 (08:36→21:23)
[2016-12-11] MEDS: APRESOLINE PO SCH (09:46)
[2016-12-11] MEDS: PHOSLO PO SCH ×4 (09:48→18:46)
[2016-12-11] MEDS ORDERED: NACL 0.9% 1000 ML 100 ML IV PRN (09:55)
--- NOTE | 2016-12-11 09:56 | Progress Note ---
Assessment and Plan end-stage renal disease currently in maintenance hemanalysis patient will need to be dialyzed longer duration of time and increase ultrafiltration goal as he does appear to have excessive fluid gains. Patient is very poorly compliant he has had a large container of ice sitting on his desk which she was working on, his overall prognosis going to be very poor I have advised him to follow-up with his sew out operator for dry weight adjustment at the dialysis clinic He will also need to work very closely with his dietitian In the meantime if required will consider additional ultrafiltration treatment to optimize his fluid overload Monitor dialysis related labs including CBC CMP and phosphorus level Overall prognosis is guarded to poor long-term Subjective Interval history: patient is currently sitting in a chair today demanding dialysis as he is due for that today. Patient is sitting with the big Container full off ice Say that he still is short of breath, no complaints of any chest pain today Objective - Vital Signs Vital signs: Vital Signs - 12hr 12/10/16 12/11/16 12/11/16 23:00 00:00 00:21 Temperature 97.3 F L Pulse Rate 99 H 90 Pulse Rate [ Anterior Bilateral Throughout] Pulse Rate [ 85 Right Radial] Respiratory 20 24 Rate Respiratory Rate [Anterior Bilateral Throughout] Blood Pressure 134/87 [Right Arm] O2 Sat by Pulse 100 100 Oximetry 12/11/16 12/11/16 12/11/16 04:00 07:56 08:37 Temperature 96.2 F L 97.4 F L Pulse Rate Pulse Rate [ 95 H Anterior Bilateral Throughout] Pulse Rate [ 83 88 Right Radial] Respiratory 20 88 H Rate Respiratory 20 Rate [Anterior Bilateral Throughout] Blood Pressure 118/67 137/85 [Right Arm] O2 Sat by Pulse 100 96 Oximetry 12/11/16 12/11/16 12/11/16 08:38 08:45 09:34 Temperature Pulse Rate Pulse Rate [ 100 H Anterior Bilateral Throughout] Pulse Rate [ Right Radial] Respiratory Rate Respiratory 20 Rate [Anterior Bilateral Throughout] Blood Pressure [Right Arm] O2 Sat by Pulse 96 95 Oximetry - General Appearance General appearance: appears stated age EENT: mucous membranes moist Neck: JVD (present) Respiratory: Present: Rales (bilateral crackles and wheezes diminished at lung base) Cardiology: regular (S1-S2 normal) Gastrointestinal: normal (soft nontender obese abdomen) Integumentary: other (edema approximately 2+ no calf tenderness) - Lab 12/11/16 05:06 12/11/16 05:06 Most recent lab results Calcium 7.7 mg/dL (8.4-10.2) L 12/11/16 05:06
[2016-12-11] MEDS ORDERED: NORVASC PO SCH (10:00)
[2016-12-11] MEDS ORDERED: EPIVIR PO SCH (10:00)
--- NOTE | 2016-12-11 12:00 | Progress Note ---
Assessment and Plan Acute on chronic systolic heart failure dialysis per nephrology consider IV diuretic if okay with nephrology continue coreg/isordil/hydralazine no ACEI/ARB due to allergy NSVT continue to observe on the monitor continue coreg 25mg BID Anemia Likely secondary to anemia of chronic disease Nonischemic cardiomyopathy stress MPI 12/2015: no ischemia Hypertension Sleep apnea End-stage renal disease on HD HIV disease Continue current management and close monitoring of volume status. The patient has been seen in conjunction with Dr. Silver who agrees with the assessment and plan of care. Subjective Date of service: 12/11/16 Principal diagnosis: acute on chronic systolic heart failure Interval history: The patient is sitting up in a chair. He c/o feeling bad "all over." Sinus rhythm on the monitor. 12 beat run of NSVT noted overnight. Objective Last Vital Signs Temp 97.5 F L 12/11/16 11:00 Pulse 81 12/11/16 12:00 Resp 20 12/11/16 11:00 BP 141/79 12/11/16 12:00 Pulse Ox 95 12/11/16 09:34 - Physical Examination General: No Apparent Distress HEENT: Positive: PERRL, EOMI Neck: Positive: neck supple, trachea midline Cardiac: Positive: Reg Rate and Rhythm, S1/S2, Systolic Murmur Lungs: Positive: Decreased Breath Sounds Neuro: Positive: Grossly Intact Abdomen: Positive: Soft, Ascites, Distended Skin: Negative: Rash, Suspicious Lesions Extremities: Present: edema (chronic changes), warm - Labs and Meds Cardiac Enzymes 12/10/16 Range/Units 06:58 CK-MB (CK-2) 2.5 (0.0-4.0) ng/mL CBC 12/11/16 Range/Units 05:06 WBC 6.0 (4.5-11.0) K/mm3 RBC 3.32 L (3.65-5.03) M/mm3 Hgb 8.5 L (11.8-15.2) gm/dl Hct 27.7 L (35.5-45.6) % Plt Count 209 (140-440) K/mm3 Lymph # 0.6 L (1.2-5.4) K/mm3 [place] # 0.7 (0.0-0.8) K/mm3 Eos # 0.0 (0.0-0.4) K/mm3 Baso # 0.0 (0.0-0.1) K/mm3 Comprehensive Metabolic Panel 12/11/16 Range/Units 05:06 Sodium 133 L (137-145) mmol/L Potassium 4.9 (3.6-5.0) mmol/L Chloride 92.6 L (98-107) mmol/L Carbon Dioxide 21 L (22-30) mmol/L BUN 72 H (9-20) mg/dL Creatinine 8.4 H (0.8-1.5) mg/dL Glucose 90 (75-100) mg/dL Calcium 7.7 L (8.4-10.2) mg/dL - Imaging and Cardiology EKG: image reviewed Stress echo: report reviewed (Myocardial Perfusion Scan 01/10: No ischemia, EF 32%) Echo: report reviewed (ECHO 01/10: moderate LAE, mild MR, EF 20-25%) - Telemetry EKG Rhythm: Sinus Rhythm
[2016-12-11] MEDS: LOVENOX SUB-Q SCH (12:22)
[2016-12-11] MEDS: PROCARDIA XL PO SCH (12:23)
--- NOTE | 2016-12-11 12:39 | Progress Note ---
Assessment and Plan Assessment and plan: Acute on chronic respiratory failure Secondary to missed hemodialysis and fluid overload Oxygen titrated to O2 sats more than 90%. BiPAP as needed Nebulizers End Stage renal disease on hemodialysis Nephrology managing. Acute on chronic systolic congestive heart failure. Hemodialysis for fluid removal IV diuretics as needed, and beta blockers, no ILEANA inhibitor status patient is allergic to is medication fluid restriction and input-output monitoring Atypical chest pain/with elevated troponin Secondary to congestive heart failure and fluid overload/ESRD Supportive care, cardiology following, isn't negative stress test Hypertension moderate control Resume home antihypertensives and when necessary medications Chronic anemia secondary to end-stage renal disease Closely monitor transfuse as needed Procrit during dialysis HIV infection. Continue home antiretrovirals DVT prophylaxis with Lovenoxn Full code status. History Interval history: shortness of breath, no chest pain Hospitalist Physical - Physical exam Narrative exam: Gen appearance : not in acute distress, obese, HEENT: Normocephalic atraumatic, Neck: supple, no JVD. Lungs: bilateral crackles and bilat wheeze, Heart: S1 and S2 regular, no murmurs, rubs or gallop Abdomen: soft, nontender, nondistended, normal bowel sounds Extremities: no edema, no clubbing or cyanosis Neuro awake alert oriented 3, no focal signs - Constitutional Vitals: Temp Pulse Resp BP Pulse Ox 97.5 F L 81 20 141/79 95 12/11/16 11:00 12/11/16 12:00 12/11/16 11:00 12/11/16 12:00 12/11/16 09:34 General appearance: Present: no acute distress, well-nourished, obese Results - Labs CBC & Chem 7: 12/11/16 05:06 12/11/16 05:06 Labs: Laboratory Last Values WBC 6.0 K/mm3 (4.5-11.0) 12/11/16 05:06 RBC 3.32 M/mm3 (3.65-5.03) L 12/11/16 05:06 Hgb 8.5 gm/dl (11.8-15.2) L 12/11/16 05:06 Hct 27.7 % (35.5-45.6) L 12/11/16 05:06 MCV 83 fl (84-94) L 12/11/16 05:06 MCH 26 pg (28-32) L 12/11/16 05:06 MCHC 31 % (32-34) L 12/11/16 05:06 RDW 23.4 % (13.2-15.2) H 12/11/16 05:06 Plt Count 209 K/mm3 (140-440) 12/11/16 05:06 Lymph % (Auto) 10.2 % (13.4-35.0) L 12/11/16 05:06 [place] % (Auto) 11.8 % (0.0-7.3) H 12/11/16 05:06 Eos % (Auto) 0.4 % (0.0-4.3) 12/11/16 05:06 Baso % (Auto) 0.2 % (0.0-1.8) 12/11/16 05:06 Lymph # 0.6 K/mm3 (1.2-5.4) L 12/11/16 05:06 [place] # 0.7 K/mm3 (0.0-0.8) 12/11/16 05:06 Eos # 0.0 K/mm3 (0.0-0.4) 12/11/16 05:06 Baso # 0.0 K/mm3 (0.0-0.1) 12/11/16 05:06 Seg Neutrophils % 77.4 % (40.0-70.0) H 12/11/16 05:06 Seg Neutrophils # 4.7 K/mm3 (1.8-7.7) 12/11/16 05:06 D-Dimer 1236.54 ng/mlDDU (0-234) H 12/09/16 17:38 Sodium 133 mmol/L (137-145) L 12/11/16 05:06 Potassium 4.9 mmol/L (3.6-5.0) 12/11/16 05:06 Chloride 92.6 mmol/L (98-107) L 12/11/16 05:06 Carbon Dioxide 21 mmol/L (22-30) L 12/11/16 05:06 Anion Gap 24 mmol/L 12/11/16 05:06 BUN 72 mg/dL (9-20) H 12/11/16 05:06 Creatinine 8.4 mg/dL (0.8-1.5) H 12/11/16 05:06 Estimated GFR 9 ml/min 12/11/16 05:06 BUN/Creatinine Ratio 8.57 % 12/11/16 05:06 Glucose 90 mg/dL (75-100) 12/11/16 05:06 Calcium 7.7 mg/dL (8.4-10.2) L 12/11/16 05:06 Total Creatine Kinase 49 units/L (55-170) L 12/10/16 06:58 CK-MB (CK-2) 2.5 ng/mL (0.0-4.0) 12/10/16 06:58 CK-MB (CK-2) Rel Index 5.1 (0-4) H 12/10/16 06:58 Troponin T 0.044 ng/mL (0.00-0.029) H 12/10/16 06:58 NT-Pro-B Natriuret Pep > 94155 pg/mL (0-450) H 12/09/16 13:17 Triglycerides 86 mg/dL (2-149) 12/09/16 13:17 Cholesterol 102 mg/dL (50-199) 12/09/16 13:17 LDL Cholesterol Direct 41 mg/dL (50-130) L 12/09/16 13:17 HDL Cholesterol 44 mg/dL (40-59) 12/09/16 13:17 Cholesterol/HDL Ratio 2.31 % 12/09/16 13:17
[2016-12-11] MEDS ORDERED: NACL 0.9 (PRIMING MACHINE ONLY DIALYSIS) MC ONE (12:44)
[2016-12-11] MEDS: ISORDIL TITRADOSE PO SCH ×3 (14:40→21:39)
[2016-12-11] MEDS: BENADRYL IV PRN ×2 (14:43→23:25)
[2016-12-11] MEDS: ZOFRAN IV PRN (14:45)
[2016-12-11] MEDS: NEURONTIN PO SCH ×2 (16:20→21:39)
[2016-12-11] MEDS: PREZISTA PO SCH (16:20)
[2016-12-11] MEDS: DAPSONE PO SCH ×2 (16:20→21:39)
[2016-12-11] MEDS: HABITROL TD SCH (16:20)
[2016-12-11] MEDS: PROTONIX PO SCH (16:20)
[2016-12-11] MEDS: COREG PO SCH ×2 (16:20→21:38)
[2016-12-11] MEDS: NORVIR PO SCH (16:20)
[2016-12-11] MEDS: ZIAGEN PO SCH (16:20)
[2016-12-11] MEDS: EPIVIR PO SCH (18:55)
[2016-12-12] MEDS: ISORDIL TITRADOSE PO SCH ×3 (06:40→21:53)
[2016-12-12] MEDS: PHOSLO PO SCH ×3 (08:45→16:04)
[2016-12-12] MEDS: BENADRYL IV PRN ×3 (08:45→21:53)
--- NOTE | 2016-12-12 08:59 | Progress Note ---
Assessment and Plan Acute on chronic systolic heart failure dialysis per nephrology consider IV diuretic if okay with nephrology continue coreg/isordil/hydralazine no ACEI/ARB due to allergy NSVT (no events noted since 12/10/16) continue to observe on the monitor continue coreg 25mg BID Anemia Likely secondary to anemia of chronic disease Nonischemic cardiomyopathy stress MPI 12/2015: no ischemia Hypertension Sleep apnea End-stage renal disease on HD HIV disease Continue current management and close monitoring of volume status. The patient has been seen in conjunction with Dr. Hunt who agrees with the assessment and plan of care. Subjective Date of service: 12/12/16 Principal diagnosis: acute on chronic systolic heart failure Interval history: The patient is sitting upright in bed. He complains of productive cough and chest pain that is worse with coughing. Sinus rhythm on the monitor. Objective Last Vital Signs Temp 97.3 F L 12/12/16 08:57 Pulse 94 H 12/12/16 09:09 Resp 20 12/12/16 08:57 BP 116/62 12/12/16 08:57 Pulse Ox 97 12/12/16 08:57 - Physical Examination General: No Apparent Distress HEENT: Positive: PERRL, EOMI Neck: Positive: neck supple, trachea midline Cardiac: Positive: Reg Rate and Rhythm, S1/S2, Systolic Murmur Lungs: Positive: Decreased Breath Sounds Neuro: Positive: Grossly Intact Abdomen: Positive: Soft, Ascites, Distended Skin: Negative: Rash, Suspicious Lesions Extremities: Present: edema (chronic changes), warm - Imaging and Cardiology EKG: image reviewed Stress echo: report reviewed (Myocardial Perfusion Scan 01/10: No ischemia, EF 32%) Echo: report reviewed (ECHO 01/10: moderate LAE, mild MR, EF 20-25%) - Telemetry EKG Rhythm: Sinus Rhythm
[2016-12-12] MEDS: PROCARDIA XL PO SCH (10:35)
[2016-12-12] MEDS: NEURONTIN PO SCH ×2 (10:35→21:53)
[2016-12-12] MEDS: LOVENOX SUB-Q SCH (10:35)
[2016-12-12] MEDS: HABITROL TD SCH (10:36)
[2016-12-12] MEDS: DAPSONE PO SCH ×2 (10:36→21:53)
[2016-12-12] MEDS: PREZISTA PO SCH (10:36)
[2016-12-12] MEDS: ZIAGEN PO SCH (10:36)
[2016-12-12] MEDS: PROTONIX PO SCH (10:36)
[2016-12-12] MEDS: COREG PO SCH ×2 (10:36→21:54)
[2016-12-12] MEDS: NORVIR PO SCH (10:36)
[2016-12-12] MEDS: MORPHINE IV PRN ×3 (10:45→21:55)
[2016-12-12] MEDS: DUONEB 0.5 MG-3 MG/3 ML SOLN IH SCH ×3 (11:04→22:15)
[2016-12-12] MEDS: EPIVIR PO SCH (14:06)
[2016-12-12] MEDS ORDERED: NACL 0.9% 1000 ML 100 ML IV PRN (14:31)
--- NOTE | 2016-12-12 14:35 | Progress Note ---
Assessment and Plan End end-stage renal disease Patient will need an additional hemodialysis treatment today Compliance is very poor discussed with outpatient dialysis clinic at [facility] Patient has chronic issues with fluid overload He needs to certainly comply with fluid restriction sodium restriction or else his prognosis is very poor He needs to have CHF education as well as dietitian to follow Prognosis will depend on the degree of compliance, which could be very poor he will be high mortality risk if he does not comply disorder discussed with the patient at length He will go for additional dialysis treatment tomorrow which is his regular schedule with stable can be considered for discharge Subjective Principal diagnosis: acute on chronic systolic heart failure Interval history: patient was seen today for follow-up he still continues to have shortness of breath drinks excessive amount of fluid eats ice Requesting another dialysis treatment today as he does not feel good Patient was seen around 9:45 in the morning Events of 24 hours vitals labs intake output medication was reviewed Objective - Vital Signs Vital signs: Vital Signs - 12hr 12/12/16 12/12/16 12/12/16 04:00 06:40 08:57 Temperature 97.8 F 97.3 F L Pulse Rate 85 Pulse Rate [ 78 Left Dorsalis Pedis] Pulse Rate [ 91 H Left Radial] Respiratory 18 20 Rate Blood Pressure 110/60 Blood Pressure 114/56 116/62 [Right Arm] O2 Sat by Pulse 97 97 Oximetry 12/12/16 12/12/16 09:09 12:00 Temperature 97.6 F Pulse Rate 94 H Pulse Rate [ 90 Left Dorsalis Pedis] Pulse Rate [ Left Radial] Respiratory 20 Rate Blood Pressure Blood Pressure 119/70 [Right Arm] O2 Sat by Pulse 97 Oximetry - General Appearance General appearance: appears stated age EENT: mucous membranes moist Neck: JVD Respiratory: Present: Rales, Ronchi, Decreased Breath Sounds (at lung bases) Cardiology: regular (S3 gallop present) Gastrointestinal: normal Integumentary: other (2+ edema bilateral) - Lab 12/11/16 05:06 12/11/16 05:06 Most recent lab results Calcium 7.7 mg/dL (8.4-10.2) L 12/11/16 05:06
[2016-12-12] MEDS: ZOFRAN IV PRN (21:52)
[2016-12-13] MEDS: MORPHINE IV PRN ×3 (03:24→21:16)
[2016-12-13] MEDS: ISORDIL TITRADOSE PO SCH ×3 (05:18→21:14)
[2016-12-13] MEDS: BENADRYL IV PRN (05:18)
[2016-12-13] MEDS: PHOSLO PO SCH ×3 (08:46→18:01)
[2016-12-13] MEDS: DUONEB 0.5 MG-3 MG/3 ML SOLN IH SCH ×3 (09:06→21:21)
--- NOTE | 2016-12-13 09:21 | Progress Note ---
Addendum entered and electronically signed by URSZULA MEDLEY MD 13:37: Seen in HD. C/O cough, sob. Hypoxemic on O2 supplementation. Awake,alert. Stable BP. Original Note: Assessment and Plan Acute on chronic systolic heart failure dialysis per nephrology consider IV diuretic if okay with nephrology continue coreg/isordil/hydralazine no ACEI/ARB due to allergy NSVT (no events noted since 12/10/16) continue to observe on the monitor continue coreg 25mg BID Anemia Likely secondary to anemia of chronic disease Nonischemic cardiomyopathy stress MPI 12/2015: no ischemia Hypertension Sleep apnea End-stage renal disease on HD HIV disease Continue current management and close monitoring of volume status. Patient may be discharged from a cardiac standpoint. He is instructed to f/u with his primary complaint investigations officer at [place]. The patient has been seen in conjunction with Dr. Hunt who agrees with the assessment and plan of care. Subjective Date of service: 12/13/16 Principal diagnosis: acute on chronic systolic heart failure Interval history: The patient is sitting up in a chair. He continues to c/o shortness of breath. Sinus rhythm on the monitor. Objective Last Vital Signs Temp 97.6 F 12/13/16 08:00 Pulse 82 12/13/16 09:23 Resp 18 12/13/16 09:23 BP 105/59 12/13/16 08:00 Pulse Ox 93 12/13/16 09:10 - Physical Examination General: No Apparent Distress HEENT: Positive: PERRL, EOMI Neck: Positive: neck supple, trachea midline Cardiac: Positive: Reg Rate and Rhythm, S1/S2, Systolic Murmur Lungs: Positive: Decreased Breath Sounds Neuro: Positive: Grossly Intact Abdomen: Positive: Soft, Ascites, Distended Skin: Negative: Rash, Suspicious Lesions Extremities: Present: edema (chronic changes), warm - Imaging and Cardiology EKG: image reviewed Stress echo: report reviewed (Myocardial Perfusion Scan 01/10: No ischemia, EF 32%) Echo: report reviewed (ECHO 01/10: moderate LAE, mild MR, EF 20-25%) - Telemetry EKG Rhythm: Sinus Rhythm
--- NOTE | 2016-12-13 09:51 | Progress Note ---
Assessment and Plan End-stage renal disease patient is currently in maintenance dialysis Patient is very poorly compliant with his fluid intake still continues to consume significant amount of ice and water Patient has respiratory insufficiency despite counseling and education he continues not to comply Patient also does have history of smoking and needs to be followed by pulmonary service as he does have some wheezing and prolonged expiratory phase He does appear to have congestive heart failure by clinical examination Patient is very poorly compliant I also worry about some competent of psychiatric problem please consider evaluation in his case Overall prognosis appears to be very poor given that patient has end-stage renal disease and multi-organ failure I have counseled and educated him to the best of my knowledge and belief Also discussed the care plan with the nurse Suggest holding any sedative or narcotics in his case Subjective Principal diagnosis: acute on chronic systolic heart failure Interval history: Seen today for follow-up due for dialysis Still continues to be short of breath eating a lot of ice edema is no better Breathing is labored Objective - Vital Signs Vital signs: Vital Signs - 12hr 12/12/16 12/12/16 12/12/16 21:53 21:54 21:55 Temperature Pulse Rate 90 90 Pulse Rate [ Anterior Bilateral Throughout] Pulse Rate [ Left Dorsalis Pedis] Pulse Rate [ Left Radial] Respiratory 20 Rate Respiratory Rate [Anterior Bilateral Throughout] Respiratory Rate [ Generalized] Blood Pressure 120/57 120/57 Blood Pressure [Right Arm] O2 Sat by Pulse Oximetry 12/12/16 12/12/16 12/12/16 22:25 22:40 23:40 Temperature Pulse Rate Pulse Rate [ Anterior Bilateral Throughout] Pulse Rate [ Left Dorsalis Pedis] Pulse Rate [ Left Radial] Respiratory 20 Rate Respiratory Rate [Anterior Bilateral Throughout] Respiratory 20 Rate [ Generalized] Blood Pressure Blood Pressure [Right Arm] O2 Sat by Pulse 96 Oximetry 12/13/16 12/13/16 12/13/16 00:43 03:24 04:04 Temperature 97.7 F 97.9 F Pulse Rate Pulse Rate [ Anterior Bilateral Throughout] Pulse Rate [ Left Dorsalis Pedis] Pulse Rate [ 88 92 H Left Radial] Respiratory 18 20 18 Rate Respiratory Rate [Anterior Bilateral Throughout] Respiratory Rate [ Generalized] Blood Pressure Blood Pressure 120/61 113/59 [Right Arm] O2 Sat by Pulse 96 97 Oximetry 12/13/16 12/13/16 12/13/16 04:09 05:18 08:00 Temperature 97.6 F Pulse Rate 90 92 H Pulse Rate [ Anterior Bilateral Throughout] Pulse Rate [ 90 Left Dorsalis Pedis] Pulse Rate [ Left Radial] Respiratory 20 Rate Respiratory Rate [Anterior Bilateral Throughout] Respiratory Rate [ Generalized] Blood Pressure 113/57 Blood Pressure 105/59 [Right Arm] O2 Sat by Pulse 90 Oximetry 12/13/16 12/13/16 12/13/16 09:06 09:10 09:23 Temperature Pulse Rate Pulse Rate [ 83 82 Anterior Bilateral Throughout] Pulse Rate [ Left Dorsalis Pedis] Pulse Rate [ Left Radial] Respiratory Rate Respiratory 18 18 Rate [Anterior Bilateral Throughout] Respiratory Rate [ Generalized] Blood Pressure Blood Pressure [Right Arm] O2 Sat by Pulse 93 Oximetry - General Appearance General appearance: appears stated age EENT: mucous membranes moist Neck: no JVD Respiratory: Present: Rales, Ronchi, Wheezes, Decreased Breath Sounds Cardiology: regular, S1S2 Gastrointestinal: normal Integumentary: other (Edema 2+ unchanged) Neurologic: other (Alert awake) - Lab 12/11/16 05:06 12/11/16 05:06 Most recent lab results Calcium 7.7 mg/dL (8.4-10.2) L 12/11/16 05:06
[2016-12-13] MEDS ORDERED: NACL 0.9% 1000 ML 100 ML IV PRN (11:10)
--- NOTE | 2016-12-13 12:13 | Progress Note ---
Assessment and Plan Assessment and plan: Acute on chronic respiratory failure Secondary to missed hemodialysis and fluid overload. Continue dialysis. Keep O 2 sat > 92%. BiPAP as needed Nebulizers. He is on home oxygen at 4 L/m. Today he desaturated while at diaysis unit down to 84%. now up to 95%. Will get ABG End Stage renal disease on hemodialysis Nephrology managing. Acute on chronic systolic congestive heart failure. Hemodialysis for fluid removal IV diuretics as needed, and beta blockers, no ILEANA inhibitor status patient is allergic to is medication fluid restriction and input-output monitoring Atypical chest pain/with elevated troponin Secondary to congestive heart failure and fluid overload/ESRD Supportive care, cardiology following, isn't negative stress test Hypertension controlled Chronic anemia secondary to end-stage renal disease HIV infection. Continue HAART. DVT prophylaxis with Lovenox Full code status. History Interval history: still has shortness of breath on and off, desaturated down at Dialysis center today no chest pain Hospitalist Physical - Physical exam Narrative exam: patient seen at [facility] Unit Gen appearance : not in acute distress, obese, HEENT: Normocephalic atraumatic, Neck: supple, no JVD. Lungs: bilateral crackles and bilat wheeze, Heart: S1 and S2 regular, no murmurs, rubs or gallop Abdomen: soft, nontender, nondistended, normal bowel sounds Extremities: no edema, no clubbing or cyanosis Neuro: Awake alert oriented 3, no focal signs - Constitutional Vitals: Temp Pulse Resp BP Pulse Ox 97.6 F 87 18 105/59 93 12/13/16 08:00 12/13/16 11:26 12/13/16 09:23 12/13/16 08:00 12/13/16 09:10 General appearance: Present: no acute distress, well-nourished, obese Results - Labs CBC & Chem 7: 12/11/16 05:06 12/11/16 05:06 Labs: Laboratory Last Values WBC 6.0 K/mm3 (4.5-11.0) 12/11/16 05:06 RBC 3.32 M/mm3 (3.65-5.03) L 12/11/16 05:06 Hgb 8.5 gm/dl (11.8-15.2) L 12/11/16 05:06 Hct 27.7 % (35.5-45.6) L 12/11/16 05:06 MCV 83 fl (84-94) L 12/11/16 05:06 MCH 26 pg (28-32) L 12/11/16 05:06 MCHC 31 % (32-34) L 12/11/16 05:06 RDW 23.4 % (13.2-15.2) H 12/11/16 05:06 Plt Count 209 K/mm3 (140-440) 12/11/16 05:06 Lymph % (Auto) 10.2 % (13.4-35.0) L 12/11/16 05:06 [place] % (Auto) 11.8 % (0.0-7.3) H 12/11/16 05:06 Eos % (Auto) 0.4 % (0.0-4.3) 12/11/16 05:06 Baso % (Auto) 0.2 % (0.0-1.8) 12/11/16 05:06 Lymph # 0.6 K/mm3 (1.2-5.4) L 12/11/16 05:06 [place] # 0.7 K/mm3 (0.0-0.8) 12/11/16 05:06 Eos # 0.0 K/mm3 (0.0-0.4) 12/11/16 05:06 Baso # 0.0 K/mm3 (0.0-0.1) 12/11/16 05:06 Seg Neutrophils % 77.4 % (40.0-70.0) H 12/11/16 05:06 Seg Neutrophils # 4.7 K/mm3 (1.8-7.7) 12/11/16 05:06 D-Dimer 1236.54 ng/mlDDU (0-234) H 12/09/16 17:38 Sodium 133 mmol/L (137-145) L 12/11/16 05:06 Potassium 4.9 mmol/L (3.6-5.0) 12/11/16 05:06 Chloride 92.6 mmol/L (98-107) L 12/11/16 05:06 Carbon Dioxide 21 mmol/L (22-30) L 12/11/16 05:06 Anion Gap 24 mmol/L 12/11/16 05:06 BUN 72 mg/dL (9-20) H 12/11/16 05:06 Creatinine 8.4 mg/dL (0.8-1.5) H 12/11/16 05:06 Estimated GFR 9 ml/min 12/11/16 05:06 BUN/Creatinine Ratio 8.57 % 12/11/16 05:06 Glucose 90 mg/dL (75-100) 12/11/16 05:06 Calcium 7.7 mg/dL (8.4-10.2) L 12/11/16 05:06 Total Creatine Kinase 49 units/L (55-170) L 12/10/16 06:58 CK-MB (CK-2) 2.5 ng/mL (0.0-4.0) 12/10/16 06:58 CK-MB (CK-2) Rel Index 5.1 (0-4) H 12/10/16 06:58 Troponin T 0.044 ng/mL (0.00-0.029) H 12/10/16 06:58 NT-Pro-B Natriuret Pep > 43226 pg/mL (0-450) H 12/09/16 13:17 Triglycerides 86 mg/dL (2-149) 12/09/16 13:17 Cholesterol 102 mg/dL (50-199) 12/09/16 13:17 LDL Cholesterol Direct 41 mg/dL (50-130) L 12/09/16 13:17 HDL Cholesterol 44 mg/dL (40-59) 12/09/16 13:17 Cholesterol/HDL Ratio 2.31 % 12/09/16 13:17
[2016-12-13] MEDS ORDERED: DUONEB 0.5 MG-3 MG/3 ML SOLN IH ONE (13:51)
[2016-12-13] MEDS: HEPARIN 10,000 UNITS/10 ML IV PRN (13:59)
[2016-12-13] MEDS ORDERED: NACL 0.9 (PRIMING MACHINE ONLY DIALYSIS) MC ONE (16:32)
[2016-12-13] MEDS ORDERED: HEPARIN 10,000 UNITS/10 ML ONE (16:32)
[2016-12-13] MEDS: NORVIR PO SCH (16:34)
[2016-12-13] MEDS: PROTONIX PO SCH (16:34)
[2016-12-13] MEDS: HABITROL TD SCH (16:34)
[2016-12-13] MEDS: PREZISTA PO SCH (16:34)
[2016-12-13] MEDS: ZIAGEN PO SCH (16:34)
[2016-12-13] MEDS: NEURONTIN PO SCH ×2 (16:35→21:15)
[2016-12-13] MEDS: LOVENOX SUB-Q SCH (16:35)
[2016-12-13] MEDS: PROCARDIA XL PO SCH (16:35)
[2016-12-13] MEDS: DAPSONE PO SCH ×2 (16:36→21:15)
[2016-12-13] MEDS: COREG PO SCH ×2 (16:36→21:15)
[2016-12-13] MEDS: EPIVIR PO SCH (16:36)
--- NOTE | 2016-12-13 17:29 | Progress Note ---
Assessment and Plan Assessment and plan: Acute on chronic respiratory failure Secondary to missed hemodialysis and fluid overload. Continue dialysis. Keep O 2 sat > 92%. BiPAP as needed Nebulizers. He is on home oxygen at 4 L/m End Stage renal disease on hemodialysis Nephrology managing. Acute on chronic systolic congestive heart failure. Hemodialysis for fluid removal IV diuretics as needed, and beta blockers, no ILEANA inhibitor status patient is allergic to is medication fluid restriction and input-output monitoring Atypical chest pain/with elevated troponin Secondary to congestive heart failure and fluid overload/ESRD Supportive care, cardiology following, isn't negative stress test Hypertension controlled Chronic anemia secondary to end-stage renal disease Closely monitor transfuse as needed Procrit during dialysis HIV infection. Continue home antiretrovirals DVT prophylaxis with Lovenox Full code status. History Interval history: shortness of breath, no chest pain Hospitalist Physical - Physical exam Narrative exam: Gen appearance : not in acute distress, obese, HEENT: Normocephalic atraumatic, Neck: supple, no JVD. Lungs: bilateral crackles and bilat wheeze, Heart: S1 and S2 regular, no murmurs, rubs or gallop Abdomen: soft, nontender, nondistended, normal bowel sounds Extremities: no edema, no clubbing or cyanosis Neuro awake alert oriented 3, no focal signs - Constitutional Vitals: Temp Pulse Resp BP Pulse Ox 98.3 F 92 H 18 134/75 84 12/13/16 10:45 12/13/16 15:00 12/13/16 14:04 12/13/16 15:00 12/13/16 10:45 General appearance: Present: no acute distress, well-nourished, obese Results - Labs CBC & Chem 7: 12/11/16 05:06 12/11/16 05:06 Labs: Laboratory Last Values WBC 6.0 K/mm3 (4.5-11.0) 12/11/16 05:06 RBC 3.32 M/mm3 (3.65-5.03) L 12/11/16 05:06 Hgb 8.5 gm/dl (11.8-15.2) L 12/11/16 05:06 Hct 27.7 % (35.5-45.6) L 12/11/16 05:06 MCV 83 fl (84-94) L 12/11/16 05:06 MCH 26 pg (28-32) L 12/11/16 05:06 MCHC 31 % (32-34) L 12/11/16 05:06 RDW 23.4 % (13.2-15.2) H 12/11/16 05:06 Plt Count 209 K/mm3 (140-440) 12/11/16 05:06 Lymph % (Auto) 10.2 % (13.4-35.0) L 12/11/16 05:06 [place] % (Auto) 11.8 % (0.0-7.3) H 12/11/16 05:06 Eos % (Auto) 0.4 % (0.0-4.3) 12/11/16 05:06 Baso % (Auto) 0.2 % (0.0-1.8) 12/11/16 05:06 Lymph # 0.6 K/mm3 (1.2-5.4) L 12/11/16 05:06 [place] # 0.7 K/mm3 (0.0-0.8) 12/11/16 05:06 Eos # 0.0 K/mm3 (0.0-0.4) 12/11/16 05:06 Baso # 0.0 K/mm3 (0.0-0.1) 12/11/16 05:06 Seg Neutrophils % 77.4 % (40.0-70.0) H 12/11/16 05:06 Seg Neutrophils # 4.7 K/mm3 (1.8-7.7) 12/11/16 05:06 D-Dimer 1236.54 ng/mlDDU (0-234) H 12/09/16 17:38 Sodium 133 mmol/L (137-145) L 12/11/16 05:06 Potassium 4.9 mmol/L (3.6-5.0) 12/11/16 05:06 Chloride 92.6 mmol/L (98-107) L 12/11/16 05:06 Carbon Dioxide 21 mmol/L (22-30) L 12/11/16 05:06 Anion Gap 24 mmol/L 12/11/16 05:06 BUN 72 mg/dL (9-20) H 12/11/16 05:06 Creatinine 8.4 mg/dL (0.8-1.5) H 12/11/16 05:06 Estimated GFR 9 ml/min 12/11/16 05:06 BUN/Creatinine Ratio 8.57 % 12/11/16 05:06 Glucose 90 mg/dL (75-100) 12/11/16 05:06 Calcium 7.7 mg/dL (8.4-10.2) L 12/11/16 05:06 Total Creatine Kinase 49 units/L (55-170) L 12/10/16 06:58 CK-MB (CK-2) 2.5 ng/mL (0.0-4.0) 12/10/16 06:58 CK-MB (CK-2) Rel Index 5.1 (0-4) H 12/10/16 06:58 Troponin T 0.044 ng/mL (0.00-0.029) H 12/10/16 06:58 NT-Pro-B Natriuret Pep > 99691 pg/mL (0-450) H 12/09/16 13:17 Triglycerides 86 mg/dL (2-149) 12/09/16 13:17 Cholesterol 102 mg/dL (50-199) 12/09/16 13:17 LDL Cholesterol Direct 41 mg/dL (50-130) L 12/09/16 13:17 HDL Cholesterol 44 mg/dL (40-59) 12/09/16 13:17 Cholesterol/HDL Ratio 2.31 % 12/09/16 13:17
[2016-12-14] MEDS: ISORDIL TITRADOSE PO SCH ×3 (06:20→22:12)
--- NOTE | 2016-12-14 07:46 | Vascular Lab Report ---
LOWER EXTREMITY VENOUS DUPLEX: REASON FOR EXAM: Elevated d-dimer. COMMENTS ON THE RIGHT: All veins visualized are freely compressible without evidence of internal echogenicity. Flow is spontaneous and phasic throughout. COMMENTS ON THE LEFT: All veins visualized are freely compressible without evidence of internal echogenicity. Flow is spontaneous and phasic throughout. IMPRESSION: No evidence of acute or chronic deep venous thrombosis in either lower extremity.
[2016-12-14] MEDS: DUONEB 0.5 MG-3 MG/3 ML SOLN IH SCH ×5 (08:54→21:52)
[2016-12-14] MEDS: COREG PO SCH ×2 (09:29→22:13)
[2016-12-14] MEDS: HABITROL TD SCH (09:29)
[2016-12-14] MEDS: PROTONIX PO SCH (09:29)
[2016-12-14] MEDS: PROCARDIA XL PO SCH (09:29)
[2016-12-14] MEDS: PREZISTA PO SCH (09:30)
[2016-12-14] MEDS: PHOSLO PO SCH ×3 (09:30→17:50)
[2016-12-14] MEDS: NORVIR PO SCH (09:31)
[2016-12-14] MEDS: LOVENOX SUB-Q SCH (09:31)
[2016-12-14] MEDS: MORPHINE IV PRN ×2 (09:43→21:37)
[2016-12-14] MEDS: NEURONTIN PO SCH ×2 (09:43→22:12)
[2016-12-14] MEDS: DAPSONE PO SCH ×2 (09:43→22:12)
--- NOTE | 2016-12-14 10:40 | Progress Note ---
Assessment and Plan Acute on chronic systolic heart failure dialysis per nephrology consider IV diuretic if okay with nephrology continue coreg/isordil/hydralazine no ACEI/ARB due to allergy Chronic respiratory failure continue O2 supplementation NSVT (no events noted since 12/10/16) continue to observe on the monitor continue coreg 25mg BID Anemia Likely secondary to anemia of chronic disease Nonischemic cardiomyopathy stress MPI 12/2015: no ischemia Hypertension Sleep apnea End-stage renal disease on HD HIV disease Continue current management and close monitoring of volume status. The patient has been seen in conjunction with Dr. Hunt who agrees with the assessment and plan of care. Subjective Date of service: 12/14/16 Principal diagnosis: acute on chronic systolic heart failure Interval history: The patient is sitting up in a chair. He complains of pain throughout his right side and reports a migraine headache. He still feels short of breath. Objective Last Vital Signs Temp 98.2 F 12/14/16 08:00 Pulse 85 12/14/16 09:43 Resp 20 12/14/16 09:43 BP 121/73 12/14/16 09:29 Pulse Ox 96 12/14/16 09:34 - Physical Examination General: No Apparent Distress HEENT: Positive: PERRL, EOMI Neck: Positive: neck supple, trachea midline Cardiac: Positive: Reg Rate and Rhythm, S1/S2, Systolic Murmur Lungs: Positive: Decreased Breath Sounds Neuro: Positive: Grossly Intact Abdomen: Positive: Soft, Distended Skin: Negative: Rash, Suspicious Lesions Extremities: Present: edema (chronic changes), warm - Imaging and Cardiology EKG: image reviewed Stress echo: report reviewed (Myocardial Perfusion Scan 01/10: No ischemia, EF 32%) Echo: report reviewed (ECHO 01/10: moderate LAE, mild MR, EF 20-25%) - Telemetry EKG Rhythm: Sinus Rhythm
[2016-12-14] MEDS: ZIAGEN PO SCH (11:15)
--- NOTE | 2016-12-14 11:34 | Progress Note ---
Assessment and Plan end-stage renal disease patient is currently on maintenance hemodialysis is currently established with Lucie Costa for dialysis and oftentimes has significant fluid gains Patient needs a CT scan of the chest discussed with Dr. Ramírez, if contrast is given patient will need to be dialyzed within 24 hours of contrast exposure Monitor dialysis-related labs Additional UF was done for him without significant benefit as patient continues to be noncompliant Continues to eat significant amount of ice we'll continue to follow and make recommendation from renal standpoint Patient continues to demand IV Benadryl for his psoriasis which should be avoided due to drowsiness and sedation His overall prognosis appears to be very guarded to poor I have already counseled and educated him case was also discussed with hospital medicine of dialysis today Additional ultrafiltration may be required if he continues to be noncompliant in the outpatient setting he may require for dialysis treatment a week Subjective Principal diagnosis: acute on chronic systolic heart failure Interval history: seen for follow-up today Patient still continues to have some shortness of breath but better He is currently established with Dr. Lucie Costa her senior agricultural assistant Admitted with fluid overload continues to be very noncompliant with fluid intake , constantly eating lots of ice Clinic reports severe noncompliance fluid gains up to 10 kg at times Objective - Vital Signs Vital signs: Vital Signs - 12hr 12/14/16 12/14/16 12/14/16 00:37 01:12 05:16 Temperature 97.6 F 98.2 F Pulse Rate 83 Pulse Rate [ Anterior Bilateral Throughout] Pulse Rate [ 66 84 Left Dorsalis Pedis] Respiratory 18 25 H 20 Rate Respiratory Rate [Anterior Bilateral Throughout] Blood Pressure Blood Pressure 108/58 103/60 [Right Arm] O2 Sat by Pulse 92 94 94 Oximetry 12/14/16 12/14/16 12/14/16 06:18 06:20 08:00 Temperature 98.2 F Pulse Rate 83 83 Pulse Rate [ Anterior Bilateral Throughout] Pulse Rate [ 86 Left Dorsalis Pedis] Respiratory 20 Rate Respiratory Rate [Anterior Bilateral Throughout] Blood Pressure 103/57 Blood Pressure 121/73 [Right Arm] O2 Sat by Pulse 93 Oximetry 12/14/16 12/14/16 12/14/16 09:00 09:29 09:34 Temperature Pulse Rate 86 Pulse Rate [ Anterior Bilateral Throughout] Pulse Rate [ Left Dorsalis Pedis] Respiratory Rate Respiratory Rate [Anterior Bilateral Throughout] Blood Pressure 121/73 Blood Pressure [Right Arm] O2 Sat by Pulse 96 96 Oximetry 12/14/16 12/14/16 09:35 09:43 Temperature Pulse Rate Pulse Rate [ 83 85 Anterior Bilateral Throughout] Pulse Rate [ Left Dorsalis Pedis] Respiratory Rate Respiratory 20 20 Rate [Anterior Bilateral Throughout] Blood Pressure Blood Pressure [Right Arm] O2 Sat by Pulse Oximetry - General Appearance General appearance: appears stated age EENT: mucous membranes moist Neck: no JVD Respiratory: Present: Rales (bilateral basilar crackles with some wheezes) Cardiology: regular (S3 gallop present) Gastrointestinal: other (soft nontender obese abdomen) Integumentary: other (edema approximately 2+ unchanged despite dialysis treatments) - Lab 12/11/16 05:06 12/11/16 05:06 Most recent lab results Calcium 7.7 mg/dL (8.4-10.2) L 12/11/16 05:06
--- NOTE | 2016-12-14 18:01 | Progress Note ---
Assessment and Plan Assessment and plan: Acute on chronic respiratory failure Secondary to missed hemodialysis and fluid overload. Continue dialysis. Keep O 2 sat > 92%. BiPAP as needed Nebulizers. He is on home oxygen at 4 L/m. He feels better End Stage renal disease on hemodialysis Nephrology managing. Acute on chronic systolic congestive heart failure. Hemodialysis for fluid removal IV diuretics as needed, and beta blockers, no ILEANA inhibitor status patient is allergic to is medication fluid restriction and input-output monitoring Atypical chest pain/with elevated troponin Secondary to congestive heart failure and fluid overload/ESRD Supportive care, cardiology following, isn't negative stress test Hypertension controlled Chronic anemia secondary to end-stage renal disease HIV infection. Continue HAART. DVT prophylaxis with Lovenox Full code status. Elevated d-dimer. Will get CT chest or V/Q scan to r/o PE. Likely discharge home in 1-2 days. History Interval history: still has shortness of breath on and off, no chest pain Hospitalist Physical - Physical exam Narrative exam: patient seen at [facility] Gen appearance : not in acute distress, obese, HEENT: Normocephalic atraumatic, Neck: supple, no JVD. Lungs: bilat crackles, Heart: S1 and S2 regular, no murmurs, rubs or gallop Abdomen: soft, nontender, nondistended, normal bowel sounds Extremities: no edema, no clubbing or cyanosis Neuro: Awake alert oriented 3, no focal signs - Constitutional Vitals: Temp Pulse Resp BP Pulse Ox 97.2 F L 86 18 114/69 94 12/14/16 12:00 12/14/16 13:29 12/14/16 12:00 12/14/16 13:29 12/14/16 12:00 General appearance: Present: no acute distress, well-nourished, obese Results - Labs CBC & Chem 7: 12/11/16 05:06 12/11/16 05:06 Labs: Laboratory Last Values WBC 6.0 K/mm3 (4.5-11.0) 12/11/16 05:06 RBC 3.32 M/mm3 (3.65-5.03) L 12/11/16 05:06 Hgb 8.5 gm/dl (11.8-15.2) L 12/11/16 05:06 Hct 27.7 % (35.5-45.6) L 12/11/16 05:06 MCV 83 fl (84-94) L 12/11/16 05:06 MCH 26 pg (28-32) L 12/11/16 05:06 MCHC 31 % (32-34) L 12/11/16 05:06 RDW 23.4 % (13.2-15.2) H 12/11/16 05:06 Plt Count 209 K/mm3 (140-440) 12/11/16 05:06 Lymph % (Auto) 10.2 % (13.4-35.0) L 12/11/16 05:06 Banner % (Auto) 11.8 % (0.0-7.3) H 12/11/16 05:06 Eos % (Auto) 0.4 % (0.0-4.3) 12/11/16 05:06 Baso % (Auto) 0.2 % (0.0-1.8) 12/11/16 05:06 Lymph # 0.6 K/mm3 (1.2-5.4) L 12/11/16 05:06 Banner # 0.7 K/mm3 (0.0-0.8) 12/11/16 05:06 Eos # 0.0 K/mm3 (0.0-0.4) 12/11/16 05:06 Baso # 0.0 K/mm3 (0.0-0.1) 12/11/16 05:06 Seg Neutrophils % 77.4 % (40.0-70.0) H 12/11/16 05:06 Seg Neutrophils # 4.7 K/mm3 (1.8-7.7) 12/11/16 05:06 D-Dimer 1236.54 ng/mlDDU (0-234) H 12/09/16 17:38 Sodium 133 mmol/L (137-145) L 12/11/16 05:06 Potassium 4.9 mmol/L (3.6-5.0) 12/11/16 05:06 Chloride 92.6 mmol/L (98-107) L 12/11/16 05:06 Carbon Dioxide 21 mmol/L (22-30) L 12/11/16 05:06 Anion Gap 24 mmol/L 12/11/16 05:06 BUN 72 mg/dL (9-20) H 12/11/16 05:06 Creatinine 8.4 mg/dL (0.8-1.5) H 12/11/16 05:06 Estimated GFR 9 ml/min 12/11/16 05:06 BUN/Creatinine Ratio 8.57 % 12/11/16 05:06 Glucose 90 mg/dL (75-100) 12/11/16 05:06 Calcium 7.7 mg/dL (8.4-10.2) L 12/11/16 05:06 Total Creatine Kinase 49 units/L (55-170) L 12/10/16 06:58 CK-MB (CK-2) 2.5 ng/mL (0.0-4.0) 12/10/16 06:58 CK-MB (CK-2) Rel Index 5.1 (0-4) H 12/10/16 06:58 Troponin T 0.044 ng/mL (0.00-0.029) H 12/10/16 06:58 NT-Pro-B Natriuret Pep > 92876 pg/mL (0-450) H 12/09/16 13:17 Triglycerides 86 mg/dL (2-149) 12/09/16 13:17 Cholesterol 102 mg/dL (50-199) 12/09/16 13:17 LDL Cholesterol Direct 41 mg/dL (50-130) L 12/09/16 13:17 HDL Cholesterol 44 mg/dL (40-59) 12/09/16 13:17 Cholesterol/HDL Ratio 2.31 % 12/09/16 13:17
[2016-12-14] MEDS: BENADRYL IV PRN (21:36)
[2016-12-15] MEDS: MORPHINE IV PRN ×2 (03:02→09:25)
[2016-12-15] MEDS: BENADRYL IV PRN (05:00)
[2016-12-15] MEDS: ISORDIL TITRADOSE PO SCH ×3 (05:15→21:54)
[2016-12-15] MEDS: DUONEB 0.5 MG-3 MG/3 ML SOLN IH SCH ×3 (08:00→19:58)
[2016-12-15] MEDS: LOVENOX SUB-Q SCH ×2 (09:25→10:13)
[2016-12-15] MEDS: PHOSLO PO SCH ×3 (09:25→17:06)
[2016-12-15] MEDS: HABITROL TD SCH (09:25)
[2016-12-15] MEDS: PREZISTA PO SCH (09:25)
[2016-12-15] MEDS: NORVIR PO SCH (09:26)
[2016-12-15] MEDS: ZIAGEN PO SCH (09:26)
[2016-12-15] MEDS: PROTONIX PO SCH (09:26)
[2016-12-15] MEDS: DAPSONE PO SCH ×2 (09:27→21:53)
[2016-12-15] MEDS: NEURONTIN PO SCH ×2 (09:27→21:54)
[2016-12-15] MEDS: COREG PO SCH ×2 (09:27→21:53)
[2016-12-15] MEDS: EPIVIR PO SCH (10:14)
[2016-12-15] MEDS ORDERED: NACL ONE (10:20)
--- NOTE | 2016-12-15 11:04 | Progress Note ---
Assessment and Plan Acute on chronic systolic heart failure dialysis per nephrology continue coreg/isordil/hydralazine no ACEI/ARB due to allergy Chronic respiratory failure continue O2 supplementation NSVT (no events noted since 12/10/16) continue to observe on the monitor continue coreg 25mg BID Anemia Likely secondary to anemia of chronic disease Nonischemic cardiomyopathy stress MPI 12/2015: no ischemia Hypertension Sleep apnea End-stage renal disease on HD HIV disease - Patient Problems (1) End-stage renal disease needing dialysis Current Visit: Yes Status: Chronic (2) Essential hypertension Current Visit: Yes Status: Chronic (3) CHF (congestive heart failure) Current Visit: No Status: Acute Qualifiers: Congestive heart failure type: unspecified congestive heart failure type Congestive heart failure chronicity: unspecified congestive heart failure chronicity Qualified Code(s): I50.9 - Heart failure, unspecified (4) Cardiomyopathy Current Visit: No Status: Acute (5) HTN (hypertension) Current Visit: No Status: Acute Subjective Date of service: 12/15/16 Principal diagnosis: acute on chronic systolic heart failure Interval history: Dyspnea is present but some better Objective Vital Signs Temp Pulse Pulse Pulse Pulse Resp Resp 12/15/16 08:04 98.0 F 81 20 12/15/16 08:02 12/15/16 08:01 92 H 19 12/15/16 08:00 91 H 18 12/15/16 06:23 97.7 F 80 22 12/15/16 01:03 98.2 F 82 24 12/14/16 22:07 82 21 12/14/16 22:00 80 12/14/16 21:52 91 H 22 12/14/16 20:40 98.3 F 82 22 12/14/16 19:00 97.4 F L 88 20 12/14/16 13:50 90 22 12/14/16 13:35 86 20 12/14/16 13:29 86 12/14/16 12:00 97.2 F L 86 18 BP BP Pulse Ox 12/15/16 08:04 120/67 91 12/15/16 08:02 92 12/15/16 08:01 12/15/16 08:00 12/15/16 06:23 125/59 92 12/15/16 01:03 110/66 92 12/14/16 22:07 100 12/14/16 22:00 88 12/14/16 21:52 12/14/16 20:40 105/56 95 12/14/16 19:00 118/70 12/14/16 13:50 12/14/16 13:35 12/14/16 13:29 114/69 12/14/16 12:00 114/69 94 - Physical Examination General: No Apparent Distress HEENT: Positive: PERRL, EOMI Neck: Positive: neck supple, trachea midline Cardiac: Positive: Reg Rate and Rhythm Lungs: Positive: clear to auscultation Neuro: Positive: Grossly Intact Abdomen: Positive: Soft, Distended Skin: Negative: Rash, Suspicious Lesions Extremities: Present: edema (chronic changes), warm - Imaging and Cardiology EKG: image reviewed Stress echo: report reviewed (Myocardial Perfusion Scan 01/10: No ischemia, EF 32%) Echo: report reviewed (ECHO 01/10: moderate LAE, mild MR, EF 20-25%)
--- NOTE | 2016-12-15 11:23 | XRay Report ---
Single view chest: Compared to 12/09/16. History: Shortness of breath. Findings: Cardiomegaly. Trachea is midline. Airspace opacities in right lung with mild pulmonary vascular congestion right lung. Left lung appears unremarkable. Impression Probable unilateral pulmonary edema. No significant interval change.
--- NOTE | 2016-12-15 12:21 | Nuclear Medicine Report ---
LUNG SCAN, VENTILATION AND PERFUSION: History: Shortness of breath. Elevated d-dimer. Findings: Inhalation of Xenon gas demonstrates a normal distribution of the activity throughout both lungs. The wash out phases show no focal retention of activity. After injection of Technetium 99m macroaggregated albumin gamma camera imaging of the lungs in multiple projections demonstrates normal pulmonary contours with a homogeneous distribution of activity. No focal areas of perfusion deficiency are identified. IMPRESSION: Normal study.
--- NOTE | 2016-12-15 13:01 | Discharge Summary ---
Providers - Providers Date of Admission: 12/09/16 14:34 Date of discharge: 12/15/16 Attending physician: HEIDI CASIANO 12/09/16 20:32 Consult to Physician [CONS] Routine Consulting Provider: JC PALMER Reason For Exam: cp Notified:: nursing secretary pl call 12/15/16 10:06 PICC Line Insertion [Consult to PICC Line RN] [CONS] Urgent Reason For Exam: Need access for contrast Type Line:: PICC Primary care physician: [facility] Hospitalization Condition: Fair Hospital course: Patient is a 36-year-old with end-stage renal disease on dialysis, CHF, CAD, HIV infection, chronic respiratory failure on home oxygen . He presents with shortness of breath after missing dialysis. He was diagnosed with acute on chronic respiratory failure secondary to pulmonary edema from fluid overload. He was given lasix iv, admitted for further management. Nephrology was consulted and dialysis was done. He was also evaluated by roof assembler. He felt better after several days but remained short of breath and remained on high oxygen requirements. Therefore a V/Q scan was done and was negative for pulmonary embolism. He improved slowly and was discharged home 12/15/2016 to follow as outpatient. Total time spent on discharge, 34 minutes Disposition: DISCHARGED TO HOME OR SELFCARE - Discharge Diagnoses (1) Acute and chronic respiratory failure Status: Acute Qualifiers: Respiratory failure complication: R (2) Acute on chronic systolic (congestive) heart failure Status: Acute (3) Fluid overload Status: Acute Qualifiers: Hypervolemia type: unspecified Qualified Code(s): E87.70 - Fluid overload, unspecified Comment: Fluid overload secondary to congestive heart failure patient going to be discharged with beta taya afterload hot tamale man antiplatelet. Carlita Grijalva has ILEANA allergies also allergies to acetaminophen and aspirin. ILEANA because he had allergy. (4) Pulmonary edema Status: Acute Qualifiers: Chronicity: acute Qualified Code(s): J81.0 - Acute pulmonary edema (5) HTN (hypertension) Status: Chronic Qualifiers: Hypertension type: essential hypertension Qualified Code(s): I10 - Essential (primary) hypertension (6) ESRD (end stage renal disease) on dialysis Status: Chronic (7) AIDS Status: Chronic Core Measure Documentation - Palliative Care Palliative Care/ Comfort Measures: Not Applicable - Core Measures Any of the following diagnoses?: heart failure - Heart Failure Discharge Requirements ILEANA/ARB for LVSD if EF <40%: No Reason for no ILEANA/ARB: Allergy or sensitivity Beta taya at discharge: Yes Exam - Physical Exam Narrative exam: Gen appearance : not in acute distress, obese, HEENT: Normocephalic atraumatic, Neck: supple, no JVD. Lungs: clear, no more rales, Heart: S1 and S2 regular, no murmurs, rubs or gallop Abdomen: soft, nontender, nondistended, normal bowel sounds Extremities: no edema, no clubbing or cyanosis Neuro: Awake alert oriented 3, no focal signs - Constitutional Vitals: Temp Pulse Resp BP Pulse Ox 97.4 F L 76 20 126/68 95 12/15/16 11:02 12/15/16 12:40 12/15/16 11:02 12/15/16 11:02 12/15/16 11:02 Plan Activity: advance as tolerated Diet: low fat, low cholesterol, low salt Additional Instructions: 1.Follow up with PCP in 1 week. 2.Continue hemodialysis as scheduled . 3.Follow up with [facility] in 1 week. 4.Cont home Oxygen at 4l/min Follow up with: PRIMARY CARE, [Primary Care Provider] - 7 Days Prescriptions: Diphenhydramine HCl [Benadryl Allergy TAB] 25 mg PO Q6H PRN #30 tablet PRN Reason: Itching
[2016-12-15] MEDS: HEPARIN 10,000 UNITS/10 ML IV PRN (13:26)
[2016-12-15] MEDS ORDERED: MORPHINE ONE (14:19)
[2016-12-15] MEDS ORDERED: NACL 0.9 (PRIMING MACHINE ONLY DIALYSIS) MC ONE (14:20)
[2016-12-15] MEDS ORDERED: EPIVIR PO SCH (21:00)
[2016-12-15 21:17] VITALS: BP 126/67
== END 2016-12-15 22:45 | disposition home or self-care (01) | DRG 291 ==
LOC: ED 11:22 → 4A 14:34
PROVIDERS: ADMIT Internal Medicine; ATTEND Internal Medicine
PROC: 5A1D60Z (ICD-10-PCS; principal; 2016-12-09)
PROC: 5A09557 Assistance with Respiratory Ventilation, Greater than 96 Consecutive Hours, Continuous Positive Airway Pressure (ICD-10-PCS; 2016-12-09)
DX: I13.2 Hypertensive heart and chronic kidney disease with heart failure and with stage 5 chronic kidney disease, or end stage renal disease (principal); I50.23 Acute on chronic systolic (congestive) heart failure; N18.6 End stage renal disease; B20 Human immunodeficiency virus [HIV] disease; J96.21 Acute and chronic respiratory failure with hypoxia; J81.0 Acute pulmonary edema; G47.30 Sleep apnea, unspecified; J45.909 Unspecified asthma, uncomplicated; J44.9 Chronic obstructive pulmonary disease, unspecified; H40.9 Unspecified glaucoma; I25.10 Atherosclerotic heart disease of native coronary artery without angina pectoris; F17.210 Nicotine dependence, cigarettes, uncomplicated; I42.9 Cardiomyopathy, unspecified; D63.1 Anemia in chronic kidney disease; F14.10 Cocaine abuse, uncomplicated; I47.2 Ventricular tachycardia; Z88.8 Allergy status to other drugs, medicaments and biological substances; Z91.013 Allergy to seafood; Z91.012 Allergy to eggs; Z88.6 Allergy status to analgesic agent; Z88.0 Allergy status to penicillin; Z91.018 Allergy to other foods; Z91.011 Allergy to milk products; Z99.2 Dependence on renal dialysis; Z79.899 Other long term (current) drug therapy; Z91.19 Patient's noncompliance with other medical treatment and regimen; Z91.15 Patient's noncompliance with renal dialysis; Z82.49 Family history of ischemic heart disease and other diseases of the circulatory system; Z83.3 Family history of diabetes mellitus
CPT/HCPCS: 36415; 71010; 74176; 78582; 80048; 80061; 82550; 82553; 83880; 84484; 85025; 85379; 93005; 93010; 93970; 94640; 94660; 94760; 96374; 96375; 99406; A9270-GY; A9540; A9558; J1200; J1644; J1650; J1940; J2270; J2405; J7030

== ENCOUNTER 2017-02-11 12:41 | Inpatient (IN) | payer MEDICAID ==
[2017-02-11] MEDS ORDERED: MORPHINE IV ONE (13:43)
[2017-02-11] MEDS ORDERED: NITROSTAT SL ONE (13:43)
[2017-02-11] MEDS ORDERED: LOPRESSOR IV ONE (13:43)
[2017-02-11] MEDS ORDERED: PLAVIX PO ONE (13:43)
[2017-02-11] MEDS ORDERED: NITRO-BID 2% TP ONE (13:43)
--- NOTE | 2017-02-11 13:59 | Emergency Department Report ---
ED Chest Pain HPI - General Chief Complaint: Chest Pain Stated Complaint: CHEST PAIN/ALEJANDRA Time Seen by Provider: 02/11/17 13:36 Source: patient, EMS Mode of arrival: Stretcher Limitations: No Limitations - History of Present Illness MD Complaint: chest pain -: Gradual Onset: during rest, during exertion Pain Location: substernal Pain Radiation: none Severity: moderate Severity scale (0 -10): 6 Quality: tightness, heaviness Consistency: intermittent Improves With: nothing Worsens With: nothing re: nausea, dyspnea. denies: vomting, diaphoresis Other Symptoms: denies: cough, fever, syncope, rash, acid taste in mouth, leg swelling Treatments Prior to Arrival: aspirin Aspirin use within the Past 7 Days: (1) Yes - Related Data Home Medications Medication Instructions Recorded Confirmed Last Taken lamiVUDine [Epivir] 50 mg PO DAILY 09/02/16 12/12/16 09/20/16 Previous Rx's Medication Instructions Recorded Last Taken Type Ipratropium/Albuterol Sulfate 1 ampul IH TIDRT ampul.neb 11/21/16 Unknown Rx [Duoneb 0.5 mg-3 mg/3 ml Soln] Pantoprazole [Protonix TAB] 40 mg PO QDAY tablet 11/21/16 Unknown Rx Diphenhydramine HCl [Benadryl 25 mg PO Q6H PRN #30 tablet 12/15/16 Unknown Rx Allergy TAB] Abacavir [Ziagen TAB] 600 mg PO DAILY tablet 01/17/17 Unknown Rx Arformoterol Nebu [Brovana Nebu] 15 mcg IH Q12HRT ml 01/17/17 Unknown Rx AtorvaSTATin [Lipitor] 40 mg PO QHS tablet 01/17/17 Unknown Rx Budesonide [Pulmicort Respules] 0.5 mg IH Q12HRT nebu 01/17/17 Unknown Rx Calcium Acetate [Phoslo] 667 mg PO TIDWM capsule 01/17/17 Unknown Rx Carvedilol [Coreg] 25 mg PO BID tablet 01/17/17 Unknown Rx Dapsone 100 mg PO BID tablet 01/17/17 Unknown Rx Darunavir [Prezista] 800 mg PO DAILY tablet 01/17/17 Unknown Rx Famotidine [Pepcid] 10 mg PO BID tablet 01/17/17 Unknown Rx Gabapentin [Neurontin] 100 mg PO BID capsule 01/17/17 Unknown Rx Ipratropium/Albuterol Sulfate 1 ampul IH Q6HRT ampul.neb 01/17/17 Unknown Rx [Duoneb 0.5 mg-3 mg/3 ml Soln] Isosorbide Dinitrate [Isordil 40 mg PO Q8HR tablet 01/17/17 Unknown Rx Titradose] Ritonavir [Norvir] 100 mg PO QDAY tab 01/17/17 Unknown Rx amLODIPine [Norvasc] 5 mg PO DAILY tablet 01/17/17 Unknown Rx hydrALAZINE [Apresoline TAB] 100 mg PO TID tab 01/17/17 Unknown Rx Allergies Allergy/AdvReac Type Severity Reaction Status Date / Time ILEANA Inhibitors Allergy Swelling Verified 08/13/15 00:13 acetaminophen [From Tylenol] Allergy Hives Verified 08/13/15 00:13 aspirin Allergy Hives Verified 08/13/15 00:13 egg Allergy Hives Verified 08/13/15 00:13 Egg Derived Allergy Hives Verified 08/13/15 00:13 fish derived Allergy Swelling Verified 08/13/15 00:13 ibuprofen Allergy Swelling Verified 08/13/15 00:13 Milk Containing Products Allergy Hives Verified 08/13/15 00:13 orange juice Allergy Hives Verified 08/13/15 00:13 Penicillins Allergy Hives Verified 08/13/15 00:13 PPD black rubber mix Allergy Swelling Verified 08/13/15 00:13 shellfish derived Allergy Hives Verified 08/13/15 00:13 tomato Allergy Vomiting Verified 08/13/15 00:13 DOUGLAS score - Douglas Score Age > 65: (0) No Aspirin use within the Past 7 Days: (0) No 3 or more CAD Risk Factors: (1) Yes 2 or more Angina events in past 24 hrs: (0) No Known CAD with more than 50% Stenosis: (0) No Elevated Cardiac Markers: (1) Yes ST Deviation Greater than 0.5mm: (0) No DOUGLAS Score: 2 ED Review of Systems ROS: Stated complaint: CHEST PAIN/ALEJANDRA Other details as noted in HPI Comment: All other systems reviewed and negative ED Past Medical Hx - Past Medical History Hx Hypertension: Yes Hx Congestive Heart Failure: Yes Hx Diabetes: No Hx Renal Disease: Yes Hx Asthma: Yes Hx COPD: Yes Hx HIV: Yes Additional medical history: glaucoma, CAD, cirrhosis, home O2 @ 4 L - Surgical History Additional Surgical History: AV fistula L arm - Social History Smoking Status: Current Every Day Smoker Substance Use Type: Other - Medications Home Medications: Home Medications Medication Instructions Recorded Confirmed Last Taken Type lamiVUDine [Epivir] 50 mg PO DAILY 09/02/16 12/12/16 09/20/16 History Ipratropium/Albuterol Sulfate 1 ampul IH TIDRT ampul.neb 11/21/16 12/12/16 Unknown Rx [Duoneb 0.5 mg-3 mg/3 ml Soln] Pantoprazole [Protonix TAB] 40 mg PO QDAY tablet 11/21/16 12/12/16 Unknown Rx Diphenhydramine HCl [Benadryl 25 mg PO Q6H PRN #30 tablet 12/15/16 Unknown Rx Allergy TAB] Abacavir [Ziagen TAB] 600 mg PO DAILY tablet 01/17/17 Unknown Rx Arformoterol Nebu [Brovana Nebu] 15 mcg IH Q12HRT ml 01/17/17 Unknown Rx AtorvaSTATin [Lipitor] 40 mg PO QHS tablet 01/17/17 Unknown Rx Budesonide [Pulmicort Respules] 0.5 mg IH Q12HRT nebu 01/17/17 Unknown Rx Calcium Acetate [Phoslo] 667 mg PO TIDWM capsule 01/17/17 Unknown Rx Carvedilol [Coreg] 25 mg PO BID tablet 01/17/17 Unknown Rx Dapsone 100 mg PO BID tablet 01/17/17 Unknown Rx Darunavir [Prezista] 800 mg PO DAILY tablet 01/17/17 Unknown Rx Famotidine [Pepcid] 10 mg PO BID tablet 01/17/17 Unknown Rx Gabapentin [Neurontin] 100 mg PO BID capsule 01/17/17 Unknown Rx Ipratropium/Albuterol Sulfate 1 ampul IH Q6HRT ampul.neb 01/17/17 Unknown Rx [Duoneb 0.5 mg-3 mg/3 ml Soln] Isosorbide Dinitrate [Isordil 40 mg PO Q8HR tablet 01/17/17 Unknown Rx Titradose] Ritonavir [Norvir] 100 mg PO QDAY tab 01/17/17 Unknown Rx amLODIPine [Norvasc] 5 mg PO DAILY tablet 01/17/17 Unknown Rx hydrALAZINE [Apresoline TAB] 100 mg PO TID tab 01/17/17 Unknown Rx ED Physical Exam - General Limitations: No Limitations General appearance: alert, in no apparent distress - Head Head exam: Present: atraumatic, normocephalic - Eye Eye exam: Present: normal appearance - ENT ENT exam: Present: mucous membranes moist - Neck Neck exam: Present: normal inspection, full ROM. Absent: tenderness, meningismus - Respiratory Respiratory exam: Present: rales, rhonchi, decreased breath sounds. Absent: respiratory distress, wheezes - Cardiovascular Cardiovascular Exam: Present: regular rate, normal rhythm. Absent: bradycardia , systolic murmur, diastolic murmur, rubs, gallop - GI/Abdominal GI/Abdominal exam: Present: soft, distended, normal bowel sounds. Absent: tenderness, guarding - Rectal Rectal exam: Present: deferred - Extremities Exam Extremities exam: Present: normal inspection, full ROM, normal capillary refill , pedal edema - Back Exam Back exam: Present: normal inspection - Neurological Exam Neurological exam: Present: alert, oriented X3 - Psychiatric Psychiatric exam: Present: normal affect, normal mood - Skin Skin exam: Present: warm, dry, intact, normal color. Absent: rash ED Course Vital Signs 02/11/17 02/11/17 02/11/17 12:52 14:30 15:45 Temperature 97.8 F Pulse Rate 103 H 93 H 99 H Respiratory 18 17 18 Rate Blood Pressure 145/92 Blood Pressure 150/111 135/75 [Right] O2 Sat by Pulse 100 96 96 Oximetry ED Medical Decision Making - Lab Data Result diagrams: 02/11/17 13:36 02/11/17 13:36 - EKG Data When compared to previous EKG there are: no significant change Interpretation: unchanged when compared t - Medical Decision Making will admti after consulting with cards for chest pain and volume overloaded and pulmonary edema. Stable at this tie with no chest pain , discuss with dr. bates and agree with admission. Critical care time in (mins) excluding proc time.: 35 Critical care attestation.: If time is entered above; I have spent that time in minutes in the direct care of this critically ill patient, excluding procedure time. ED Disposition Clinical Impression: Acute renal failure, HIV positive, CHF (congestive heart failure), End-stage renal disease needing dialysis Disposition: OP ADMITTED IP TO THIS HOSP Is pt being admited?: Yes Does the pt Need Aspirin: Yes Condition: Good Referrals: PRIMARY CARE, [Primary Care Provider] - 3-5 Days Time of Disposition: 16:17
[2017-02-11 14:02] LABS: Basophils % (Auto) 0.2 % (0.0-1.8); Eosinophils % (Auto) 2.2 % (0.0-4.3); Mean Corpuscular HGB Conc 30 % (32-34); Mean Corpuscular Volume 86 fl (84-94); Platelet Count 133 K/mm3 (140-440); Red Blood Count 3.87 M/mm3 (3.65-5.03); White Blood Count 5.9 K/mm3 (4.5-11.0)
--- NOTE | 2017-02-11 14:03 | XRay Report ---
PORTABLE CHEST INDICATION: Chest pain. COMPARISON: 01/15/2017 FINDINGS: Portable, frontal chest radiograph demonstrates new hazy airspace opacities in the mid to lower lungs and slight increased bronchovascular prominence. Stable cardiomediastinal silhouette/mild cardiomegaly. EKG leads. Unremarkable bones. CONCLUSION: Mild CHF now suspected with stable cardiomegaly, as described. Please correlate. Thank you for the opportunity to participate in this patient's care.
[2017-02-11 14:09] LABS: Hematocrit 33.2 % (35.5-45.6); Mean Corpuscular Hemoglobin 26 pg (28-32)
[2017-02-11 14:21] LABS: Creatine Kinase MB 3.2 ng/mL (0.0-4.0)
[2017-02-11 14:22] LABS: BUN/Creatinine Ratio 8.14; Calcium 8.8 mg/dL (8.4-10.2); Chloride 93.5 mmol/L (98-107); Potassium 5.8 mmol/L (3.6-5.0)
[2017-02-11 14:45] LABS: INR 1.29 (0.87-1.13); Partial Thromboplastin Time 37.1 Sec. (24.2-36.6)
--- NOTE | 2017-02-11 16:28 | Consultation ---
History of Present Illness Consult date: 02/11/17 Requesting physician: JOHNNY DURAN Consult reason: congestive heart failure History of present illness: The patient is a 36 year old male with a history of chronic systolic heart failure, non-ischemic cardiomyopathy, chronic respiratory failure on home O2, ESRD on HD, HIV who presented with left sided chest pain, shortness of breath and "swelling all over" for the past several days. He describes the pain as "sharp" and states it is constant. No exacerbating or relieving factors. Associated with nausea. He is chronically short of breath. Troponin level is mildly elevated. BNP 92439. He states he has not missed any dialysis sessions. Echo done 12/2015 showed EF 20-25%, impaired relaxation. Stress test done 12/2015 was negative for ischemia. He states that he has had a cardiac cath at [place] in the past which he believes showed no blockages. Past History Past Medical History: anemia, COPD, dialysis, ESRD, heart failure, HIV/AIDS, hypertension, other (history of nonischemic cardiomyopathy) Past Surgical History: Other (AV fistula in left arm) Social history: smoking, full code. denies: alcohol abuse, prescription drug abuse Medications and Allergies Allergies Allergy/AdvReac Type Severity Reaction Status Date / Time ILEANA Inhibitors Allergy Swelling Verified 08/13/15 00:13 acetaminophen [From Tylenol] Allergy Hives Verified 08/13/15 00:13 aspirin Allergy Hives Verified 08/13/15 00:13 egg Allergy Hives Verified 08/13/15 00:13 Egg Derived Allergy Hives Verified 08/13/15 00:13 fish derived Allergy Swelling Verified 08/13/15 00:13 ibuprofen Allergy Swelling Verified 08/13/15 00:13 Milk Containing Products Allergy Hives Verified 08/13/15 00:13 orange juice Allergy Hives Verified 08/13/15 00:13 Penicillins Allergy Hives Verified 08/13/15 00:13 PPD black rubber mix Allergy Swelling Verified 08/13/15 00:13 shellfish derived Allergy Hives Verified 08/13/15 00:13 tomato Allergy Vomiting Verified 08/13/15 00:13 Home Medications Medication Instructions Recorded Confirmed Last Taken Type lamiVUDine [Epivir] 50 mg PO DAILY 09/02/16 12/12/16 09/20/16 History Ipratropium/Albuterol Sulfate 1 ampul IH TIDRT ampul.neb 11/21/16 12/12/16 Unknown Rx [Duoneb 0.5 mg-3 mg/3 ml Soln] Pantoprazole [Protonix TAB] 40 mg PO QDAY tablet 11/21/16 12/12/16 Unknown Rx Diphenhydramine HCl [Benadryl 25 mg PO Q6H PRN #30 tablet 12/15/16 Unknown Rx Allergy TAB] Abacavir [Ziagen TAB] 600 mg PO DAILY tablet 01/17/17 Unknown Rx Arformoterol Nebu [Brovana Nebu] 15 mcg IH Q12HRT ml 01/17/17 Unknown Rx AtorvaSTATin [Lipitor] 40 mg PO QHS tablet 01/17/17 Unknown Rx Budesonide [Pulmicort Respules] 0.5 mg IH Q12HRT nebu 01/17/17 Unknown Rx Calcium Acetate [Phoslo] 667 mg PO TIDWM capsule 01/17/17 Unknown Rx Carvedilol [Coreg] 25 mg PO BID tablet 01/17/17 Unknown Rx Dapsone 100 mg PO BID tablet 01/17/17 Unknown Rx Darunavir [Prezista] 800 mg PO DAILY tablet 01/17/17 Unknown Rx Famotidine [Pepcid] 10 mg PO BID tablet 01/17/17 Unknown Rx Gabapentin [Neurontin] 100 mg PO BID capsule 01/17/17 Unknown Rx Ipratropium/Albuterol Sulfate 1 ampul IH Q6HRT ampul.neb 01/17/17 Unknown Rx [Duoneb 0.5 mg-3 mg/3 ml Soln] Isosorbide Dinitrate [Isordil 40 mg PO Q8HR tablet 01/17/17 Unknown Rx Titradose] Ritonavir [Norvir] 100 mg PO QDAY tab 01/17/17 Unknown Rx amLODIPine [Norvasc] 5 mg PO DAILY tablet 01/17/17 Unknown Rx hydrALAZINE [Apresoline TAB] 100 mg PO TID tab 01/17/17 Unknown Rx Review of Systems Constitutional: no fever, no chills Ears, nose, mouth and throat: no nasal congestion, no nasal discharge Cardiovascular: chest pain, orthopnea, shortness of breath, dyspnea on exertion , leg edema Respiratory: shortness of breath, dyspnea on exertion, no cough, no congestion, no wheezing Gastrointestinal: nausea, no abdominal pain, no diarrhea, no constipation Genitourinary Male: no dysuria, no hematuria Musculoskeletal: no neck stiffness, no neck pain Integumentary: no rash, no pruritis Neurological: no parathesias, no numbness, no tingling, no headaches Endocrine: no cold intolerance, no heat intolerance Hematologic/Lymphatic: no easy bruising, no easy bleeding Allergic/Immunologic: no urticaria, no wheezing Physical Examination Vital Signs Temp Pulse Resp BP Pulse Ox 97.8 F 103 H 18 145/92 100 02/11/17 12:52 02/11/17 12:52 02/11/17 12:52 02/11/17 12:52 02/11/17 12:52 General appearance: no acute distress HEENT: Positive: PERRL, Normocephaly, Mucus Membranes Moist Neck: Positive: neck supple, trachea midline Cardiac: Positive: Reg Rate and Rhythm, S1/S2 Lungs: Positive: Decreased Breath Sounds Neuro: Positive: Grossly Intact Abdomen: Positive: Soft, Distended Male genitourinary: Positive: penile edema, scrotal edema Skin: Positive: Clear. Negative: Rash Extremities: Present: +3 Edema Results 02/11/17 13:36 02/11/17 13:36 Cardiac Enzymes 02/11/17 Range/Units 13:36 CK-MB (CK-2) 3.2 (0.0-4.0) ng/mL Coagulation 02/11/17 Range/Units 14:07 PT 16.0 H (12.2-14.9) Sec. INR 1.29 H (0.87-1.13) APTT 37.1 H (24.2-36.6) Sec. Lipids 02/11/17 Range/Units 13:36 Triglycerides 64 (2-149) mg/dL Cholesterol 101 (50-199) mg/dL HDL Cholesterol 39 L (40-59) mg/dL Cholesterol/HDL Ratio 2.58 % CBC 02/11/17 Range/Units 13:36 WBC 5.9 (4.5-11.0) K/mm3 RBC 3.87 (3.65-5.03) M/mm3 Hgb 10.0 L (11.8-15.2) gm/dl Hct 33.2 L (35.5-45.6) % Plt Count 133 L (140-440) K/mm3 Lymph # 0.5 L (1.2-5.4) K/mm3 Weber # 0.2 (0.0-0.8) K/mm3 Eos # 0.1 (0.0-0.4) K/mm3 Baso # 0.0 (0.0-0.1) K/mm3 Comprehensive Metabolic Panel 02/11/17 Range/Units 13:36 Sodium 134 L (137-145) mmol/L Potassium 5.8 H (3.6-5.0) mmol/L Chloride 93.5 L (98-107) mmol/L Carbon Dioxide 24 (22-30) mmol/L BUN 79 H (9-20) mg/dL Creatinine 9.7 H (0.8-1.5) mg/dL Glucose 88 (75-100) mg/dL Calcium 8.8 (8.4-10.2) mg/dL - Imaging and Cardiology Echo: pending, report reviewed (12/2015: EF 20-25%, impaired relaxation) EKG: image reviewed EKG interpretations - Telemetry EKG Rhythm: Sinus Rhythm - EKG Sinus rhythms and dysrhythmias: sinus rhythm Repolarization changes or abnormalities: repolarization abn secondary to ventricular hypertrophy Assessment and Plan Atypical chest pain no acute EKG changes stress MPI 12/2015: no ischemia Elevated troponin-->likely due to ESRD minimally elevated but flat Acute on chronic systolic heart failure Echo 12/2015: EF 20-25%, impaired relaxation , will repeat dialysis per nephrology consider diuretic if okay with nephrology continue coreg/isordil/hydralazine no ACEI/ARB due to allergy Hyperkalemia per nephrology Chronic respiratory failure continue O2 supplementation Anemia Likely secondary to anemia of chronic disease Nonischemic cardiomyopathy stress MPI 12/2015: no ischemia normal coronaires on cath at [place] in the past per pt. report. outpatient f/u for consideration of ICD Hypertension Sleep apnea End-stage renal disease on HD HIV disease Dialysis per nephrology. Continue heart failure regimen and close monitoring of volume status. Await repeat echo findings. The patient has been seen in conjunction with Dr. Vicente who agrees with the assessment and plan of care. Thank you Dr. Duran for allowing us to participate in the care of this patient.
--- NOTE | 2017-02-11 18:29 | Admit Criteria Form ---
Admission Criteria Documentation: PULMONARY EDEMA Clinical Indications for Admission to Inpatient Care (Place 'X' for any and all applicable criteria): Admission is indicated by ANY ONE of the following(1)(2)(3)(4): [ ]I. Severe electrolyte abnormalities requiring inpatient care(9) [ ]II. Hemodynamic instability [ ]III. Anasarca [ ]IV. Acute cardiac ischemia causing or associated with failure (Also use Angina or Myocardial Infarction as appropriate) [ ]V. Cardiac arrhythmias of immediate concern [ ]. Precipitating cause for acute decompensation (eg, pneumonia, pulmonary embolism) requires inpatient care [ ]VII. Pulmonary edema that is very severe (eg, mechanical ventilation needed, imminent or likely, need for 100% oxygen to keep oxygen saturation above 90%) [X ]VIII. Inpatient admission required rather than observation care (Also use Heart Failure: Observation Care as appropriate) because of ANY ONE of the following: [ ]a) Pulmonary edema that is severe or worsening as indicated by ALL of the following: [ ]i) New need for oxygen therapy to keep oxygen saturation above 90% (or increased FiO2 need from baseline) [ ]ii) Has not improved sufficiently with emergency department or observation care IV diuretics or other heart failure treatments[C] [ ]b) Cognitive impairment that is severe or persistent [ ]c) Increased creatinine (new on laboratory test) with reduction of more than 50% in estimated glomerular filtration rate from baseline. [ ]d) Acute renal insufficiency (progressively (ongoing) rising creatinine (known from past laboratory test) with reduction of more than 25% in estimated glomerular filtration rate from baseline) [ ]e) Acute peripheral ischemia (eg, pulseless, cool, mottled, or cyanotic extremity) [X ]f) Acute renal failure [ ]g) Supplemental O2 or respiratory treatment for >24 hr that are performable only in acute inpatient setting [ ]h) Pulmonary artery catheter monitoring [ ]i) Other condition, treatment or monitoring requiring inpatient admission Extended stay beyond goal length of stay may be needed for(1)(3)(21)(25): [ ]a) Cardiac ischemia, confirmed or suspected as precipitant [ ]b) Cardiogenic shock or refractory pulmonary edema [ ]c) Acute kidney injury or renal failure [ ]d) Respiratory failure (eg, need for noninvasive or invasive mechanical ventilation) (23) [ ]e) Concomitant pneumonia or significant electrolyte abnormality (eg, severe hyponatremia) [ ]f) Newly diagnosed (new onset) atrial fibrillation [ ]g) Stage IV chronic kidney disease (estimated glomerular filtration rate of less than 30 mL/min/1.73m2 (0.50 mL/sec/1.73m2), and not previously on chronic dialysis (Contents from HEART FAILURE clinical indications for admission to inpatient care have been integrated in this form) The original [facility] content created by [facility] has been revised. The portions of the content which have been revised are identified through the use of italic text or in bold, and [facility] has neither reviewed nor approved the modified material. All other unmodified content is copyright [facility] [employer] Please see references footnoted in the original [facility] [employer] edition 2016 Admission Criteria Met: Yes
[2017-02-11] MEDS ORDERED: DILAUDID IV ONE (20:34)
[2017-02-11] MEDS ORDERED: SODIUM BICARBONATE 150 MEQ in D5W 1,000 ML IV ONE (20:47)
[2017-02-11] MEDS ORDERED: KIONEX PO ONE (20:48)
[2017-02-11] MEDS ORDERED: [UNRECOGNIZED DRUG - REMARK] PO PRN (21:16)
--- NOTE | 2017-02-11 21:16 | History and Physical Report ---
History of Present Illness Date of examination: 02/11/17 Date of admission: 02/11/17 Chief complaint: Chest pain since AM History of present illness: 36 y/o AAM comes in for Chest pain since AM.Pain is precordial and not radiating.No SOB.No Diaphoresis.No palpitations.Has Hx of HTN copd ESRD HIV and PN. Pain level is 6 on scale of to 10.No exacerbating or relieving factors. Past History Past Medical History: anemia, COPD, dialysis, ESRD, heart failure, HIV/AIDS, hypertension, other (history of nonischemic cardiomyopathy) Past Surgical History: Other (AV fistula in left arm) Social history: smoking, full code. denies: alcohol abuse, prescription drug abuse Medications and Allergies Allergies Allergy/AdvReac Type Severity Reaction Status Date / Time ILEANA Inhibitors Allergy Swelling Verified 08/13/15 00:13 acetaminophen [From Tylenol] Allergy Hives Verified 08/13/15 00:13 aspirin Allergy Hives Verified 08/13/15 00:13 egg Allergy Hives Verified 08/13/15 00:13 Egg Derived Allergy Hives Verified 08/13/15 00:13 fish derived Allergy Swelling Verified 08/13/15 00:13 ibuprofen Allergy Swelling Verified 08/13/15 00:13 Milk Containing Products Allergy Hives Verified 08/13/15 00:13 orange juice Allergy Hives Verified 08/13/15 00:13 Penicillins Allergy Hives Verified 08/13/15 00:13 PPD black rubber mix Allergy Swelling Verified 08/13/15 00:13 shellfish derived Allergy Hives Verified 08/13/15 00:13 tomato Allergy Vomiting Verified 08/13/15 00:13 Home Medications Medication Instructions Recorded Confirmed Last Taken Type lamiVUDine [Epivir] 50 mg PO DAILY 09/02/16 02/11/17 09/20/16 History Ipratropium/Albuterol Sulfate 1 ampul IH TIDRT ampul.neb 11/21/16 02/11/17 Unknown Rx [Duoneb 0.5 mg-3 mg/3 ml Soln] Pantoprazole [Protonix TAB] 40 mg PO QDAY tablet 11/21/16 02/11/17 Unknown Rx Diphenhydramine HCl [Benadryl 25 mg PO Q6H PRN #30 tablet 12/15/16 02/11/17 Unknown Rx Allergy TAB] Abacavir [Ziagen TAB] 600 mg PO DAILY tablet 01/17/17 02/11/17 Unknown Rx Arformoterol Nebu [Brovana Nebu] 15 mcg IH Q12HRT ml 01/17/17 02/11/17 Unknown Rx AtorvaSTATin [Lipitor] 40 mg PO QHS tablet 01/17/17 02/11/17 Unknown Rx Budesonide [Pulmicort Respules] 0.5 mg IH Q12HRT nebu 01/17/17 02/11/17 Unknown Rx Calcium Acetate [Phoslo] 667 mg PO TIDWM capsule 01/17/17 02/11/17 Unknown Rx Carvedilol [Coreg] 25 mg PO BID tablet 01/17/17 02/11/17 Unknown Rx Dapsone 100 mg PO BID tablet 01/17/17 02/11/17 Unknown Rx Darunavir [Prezista] 800 mg PO DAILY tablet 01/17/17 02/11/17 Unknown Rx Famotidine [Pepcid] 10 mg PO BID tablet 01/17/17 02/11/17 Unknown Rx Gabapentin [Neurontin] 100 mg PO BID capsule 01/17/17 02/11/17 Unknown Rx Ipratropium/Albuterol Sulfate 1 ampul IH Q6HRT ampul.neb 01/17/17 02/11/17 Unknown Rx [Duoneb 0.5 mg-3 mg/3 ml Soln] Isosorbide Dinitrate [Isordil 40 mg PO Q8HR tablet 01/17/17 02/11/17 Unknown Rx Titradose] Ritonavir [Norvir] 100 mg PO QDAY tab 01/17/17 02/11/17 Unknown Rx amLODIPine [Norvasc] 5 mg PO DAILY tablet 01/17/17 02/11/17 Unknown Rx hydrALAZINE [Apresoline TAB] 100 mg PO TID tab 01/17/17 02/11/17 Unknown Rx Active Meds: Active Medications Sodium Bicarbonate 150 meq/ (Dextrose) 1,150 mls @ 42 mls/hr IV ONCE.ED ONE Stop: 02/13/17 00:09 Review of Systems All systems: negative Constitutional: no weight loss, no weight gain Ears, nose, mouth and throat: no dysphagia, no hoarseness, no sore throat, no odynophagia Cardiovascular: chest pain, no syncope, no lightheadedness, no shortness of breath, no dyspnea on exertion Respiratory: no shortness of breath, no dyspnea on exertion Gastrointestinal: no nausea, no vomiting, no diarrhea, no constipation, no change in bowel habits Genitourinary Male: no dysuria, no hematuria, no flank pain, no discharge, no urinary frequency, no urinary hesitancy Musculoskeletal: no neck stiffness, no neck pain Integumentary: no rash, no pruritis, no redness Neurological: no seizures, no syncope Psychiatric: no anxiety, no depression Endocrine: no cold intolerance, no heat intolerance, no polyphagia, no polydipsia, no polyuria, no nocturia Hematologic/Lymphatic: no easy bruising, no easy bleeding Allergic/Immunologic: no urticaria, no allergic rhinitis, no wheezing Exam - Constitutional Vitals: Temp Pulse Resp BP Pulse Ox 97.8 F 74 16 135/95 95 02/11/17 12:52 02/11/17 20:00 02/11/17 20:00 02/11/17 20:00 02/11/17 20:00 General appearance: Present: no acute distress, well-nourished - EENT Eyes: Present: PERRL ENT: hearing intact, clear oral mucosa - Neck Neck: Present: supple, normal ROM - Respiratory Respiratory effort: normal Respiratory: bilateral: CTA - Cardiovascular Rhythm: regular Heart Sounds: Present: S1 & S2. Absent: rub, click - Extremities Extremities: pulses symmetrical, No edema Peripheral Pulses: within normal limits - Abdominal General gastrointestinal: Present: soft, non-tender, non-distended, normal bowel sounds Male genitourinary: Present: normal - Rectal Rectal Exam: deferred - Integumentary Integumentary: Present: clear, warm, dry - Musculoskeletal Musculoskeletal: gait normal, strength equal bilaterally - Psychiatric Psychiatric: appropriate mood/affect, intact judgment & insight - Neurologic Neurologic: CNII-XII intact, moves all extremities - Allied Health Allied health notes reviewed: nursing, case management Results - Labs CBC & Chem 7: 02/11/17 13:36 02/12/17 04:50 Labs: Laboratory Last Values WBC 5.9 K/mm3 (4.5-11.0) 02/11/17 13:36 RBC 3.87 M/mm3 (3.65-5.03) 02/11/17 13:36 Hgb 10.0 gm/dl (11.8-15.2) L 02/11/17 13:36 Hct 33.2 % (35.5-45.6) L 02/11/17 13:36 MCV 86 fl (84-94) 02/11/17 13:36 MCH 26 pg (28-32) L 02/11/17 13:36 MCHC 30 % (32-34) L 02/11/17 13:36 RDW 23.0 % (13.2-15.2) H 02/11/17 13:36 Plt Count 133 K/mm3 (140-440) L 02/11/17 13:36 Lymph % (Auto) 8.4 % (13.4-35.0) L 02/11/17 13:36 Wilcox % (Auto) 3.2 % (0.0-7.3) 02/11/17 13:36 Eos % (Auto) 2.2 % (0.0-4.3) 02/11/17 13:36 Baso % (Auto) 0.2 % (0.0-1.8) 02/11/17 13:36 Lymph # 0.5 K/mm3 (1.2-5.4) L 02/11/17 13:36 Wilcox # 0.2 K/mm3 (0.0-0.8) 02/11/17 13:36 Eos # 0.1 K/mm3 (0.0-0.4) 02/11/17 13:36 Baso # 0.0 K/mm3 (0.0-0.1) 02/11/17 13:36 Seg Neutrophils % 86.0 % (40.0-70.0) H 02/11/17 13:36 Seg Neutrophils # 5.1 K/mm3 (1.8-7.7) 02/11/17 13:36 PT 16.0 Sec. (12.2-14.9) H 02/11/17 14:07 INR 1.29 (0.87-1.13) H 02/11/17 14:07 APTT 37.1 Sec. (24.2-36.6) H 02/11/17 14:07 Sodium 134 mmol/L (137-145) L 02/11/17 13:36 Potassium 5.8 mmol/L (3.6-5.0) H 02/11/17 13:36 Chloride 93.5 mmol/L (98-107) L 02/11/17 13:36 Carbon Dioxide 24 mmol/L (22-30) 02/11/17 13:36 Anion Gap 22 mmol/L 02/11/17 13:36 BUN 79 mg/dL (9-20) H 02/11/17 13:36 Creatinine 9.7 mg/dL (0.8-1.5) H 02/11/17 13:36 Estimated GFR 7 ml/min 02/11/17 13:36 BUN/Creatinine Ratio 8.14 % 02/11/17 13:36 Glucose 88 mg/dL (75-100) 02/11/17 13:36 Calcium 8.8 mg/dL (8.4-10.2) 02/11/17 13:36 Total Creatine Kinase 40 units/L (55-170) L 02/11/17 13:36 CK-MB (CK-2) 3.2 ng/mL (0.0-4.0) 02/11/17 13:36 CK-MB (CK-2) Rel Index 8.0 (0-4) H 02/11/17 13:36 Troponin T 0.040 ng/mL (0.00-0.029) H 02/11/17 13:36 NT-Pro-B Natriuret Pep 59422 pg/mL (0-450) H 02/11/17 13:36 Triglycerides 64 mg/dL (2-149) 02/11/17 13:36 Cholesterol 101 mg/dL (50-199) 02/11/17 13:36 LDL Cholesterol Direct 50 mg/dL (50-130) 02/11/17 13:36 HDL Cholesterol 39 mg/dL (40-59) L 02/11/17 13:36 Cholesterol/HDL Ratio 2.58 % 02/11/17 13:36 - Imaging and Cardiology EKG: report reviewed (NSR -no acute st t wave changes) Chest x-ray: report reviewed (Mild CHF) Assessment and Plan Advance Directives: Yes (Full code) VTE prophylaxis?: Chemical Plan of care discussed with patient/family: Yes - Patient Problems (1) Chest pain Current Visit: No Status: Acute Qualifiers: Chest pain type: unspecified Qualified Code(s): R07.9 - Chest pain, unspecified Plan to address problem: Chest pain w/u.Lexiscan and serial cardiac enzymes.Cardiology consulted. (2) Hyperkalemia Current Visit: Yes Status: Acute Plan to address problem: On HD.Low k bath (3) CHF (congestive heart failure) Current Visit: Yes Status: Chronic Qualifiers: Congestive heart failure type: combined Congestive heart failure chronicity : C Plan to address problem: Ultrafiltration as needed.On HD (4) End-stage renal disease needing dialysis Current Visit: Yes Status: Chronic Plan to address problem: Cont HD.Dr Winters consulted.His Professor Of Biostatistics is Dr Costa. (5) HIV positive Current Visit: Yes Status: Chronic Plan to address problem: Cont antiretrovirals (6) COPD (chronic obstructive pulmonary disease) Current Visit: Yes Status: Chronic Qualifiers: COPD type: C Chronic bronchitis type: simple Emphysema type: E Qualified Code(s): J41.0 - Simple chronic bronchitis Plan to address problem: Cont Duonebs symbicort and Brovana. (7) DVT prophylaxis Current Visit: Yes Status: Acute Plan to address problem: On Heparin
[2017-02-11] MEDS ORDERED: ZOFRAN IV PRN (21:21)
[2017-02-11] MEDS ORDERED: PERCOCET 5/325 PO PRN (21:21)
[2017-02-11] MEDS ORDERED: DULCOLAX PR PRN (21:21)
[2017-02-11] MEDS ORDERED: TYLENOL PO PRN (21:21)
[2017-02-11] MEDS ORDERED: SODIUM CHLORIDE FLUSH SYRINGE 10 ML IV PRN (21:26)
[2017-02-11] MEDS ORDERED: PEPCID PO SCH (22:00)
[2017-02-11] MEDS ORDERED: NORVASC PO SCH (22:00)
[2017-02-11 22:27] LABS: Creatine Kinase MB 3.2 ng/mL (0.0-4.0)
[2017-02-11] MEDS: PULMICORT IH SCH (22:38)
[2017-02-11] MEDS: BROVANA NEBU IH SCH (22:38)
[2017-02-11] MEDS: DAPSONE PO SCH (22:53)
[2017-02-11] MEDS: ISORDIL TITRADOSE PO SCH (22:53)
[2017-02-11] MEDS: PREZISTA PO SCH (22:54)
[2017-02-11] MEDS: ZIAGEN PO SCH (22:54)
[2017-02-12] MEDS: BENADRYL PO PRN (00:50)
[2017-02-12] MEDS: NEURONTIN PO SCH ×3 (00:51→22:29)
[2017-02-12] MEDS: NORVASC PO SCH ×2 (00:51→11:01)
[2017-02-12] MEDS: COREG PO SCH ×2 (00:51→10:39)
[2017-02-12] MEDS: MORPHINE IV PRN ×4 (00:52→20:20)
[2017-02-12] MEDS: NORVIR PO SCH ×2 (01:35→10:37)
[2017-02-12] MEDS: DUONEB 0.5 MG-3 MG/3 ML SOLN IH SCH ×4 (02:00→23:29)
[2017-02-12] MEDS: ISORDIL TITRADOSE PO SCH ×3 (05:18→22:27)
[2017-02-12 06:12] LABS: Albumin 3.1 g/dL (3.9-5); Albumin/Globulin Ratio 0.6 %; BUN/Creatinine Ratio 8.95; Bilirubin,Total 0.6 mg/dL (0.1-1.2); Calcium 8.2 mg/dL (8.4-10.2); Chloride 94.8 mmol/L (98-107); Potassium 5.6 mmol/L (3.6-5.0); Total Protein 7.9 g/dL (6.3-8.2)
[2017-02-12] MEDS ORDERED: DUONEB 0.5 MG-3 MG/3 ML SOLN IH SCH (08:00)
[2017-02-12] MEDS: BROVANA NEBU IH SCH ×2 (08:33→20:29)
[2017-02-12] MEDS: PULMICORT IH SCH ×2 (08:33→20:29)
[2017-02-12] MEDS: PREZISTA PO SCH (10:38)
[2017-02-12] MEDS: DAPSONE PO SCH ×2 (10:38→22:32)
[2017-02-12] MEDS: ZIAGEN PO SCH (10:38)
[2017-02-12] MEDS: PROTONIX PO SCH (10:39)
[2017-02-12] MEDS: PHOSLO PO SCH ×3 (10:39→20:28)
[2017-02-12] MEDS: EPIVIR PO SCH (10:41)
[2017-02-12] MEDS: APRESOLINE PO SCH ×3 (11:01→22:28)
--- NOTE | 2017-02-12 11:17 | Progress Note ---
Assessment and Plan Assessment and plan: 1. Atypical chest pain. Patient with no acute EKG changes and stress MPI 2015 with no ischemia 2. Elevated troponin. Etiology likely due to ESRD. Cardiology consulted. 3. Acute on chronic systolic heart failure Echo 12/2015: EF 20-25%, impaired relaxation dialysis per nephrology consider diuretic if okay with nephrology continue coreg/isordil/hydralazine no ACEI/ARB due to allergy Repeat echocardiogram today. 4. Hyperkalemia. Continue hemodialysis per nephrology. Follow BMP. 5. Chronic respiratory failure. Continue O2 supplementation 6. Anemia. Etiology likely secondary to anemia of chronic disease. Check Hemoccult stools. 7. Nonischemic cardiomyopathy stress MPI 12/2015: no ischemia normal coronaires on cath at [place] in the past per pt. report. outpatient f/u for consideration of ICD 8. Hypertension. Resume antihypertensive medications 9. Sleep apnea 10. End-stage renal disease on HD 11. HIV disease. Consider ID consultation. History Interval history: The patient is a 36 year old male with a history of chronic systolic heart failure, non-ischemic cardiomyopathy, chronic respiratory failure on home O2, ESRD on HD, HIV who presented with left sided chest pain, shortness of breath and "swelling all over" for the past several days. No new issues overnight. Hospitalist Physical - Constitutional Vitals: Temp Pulse Resp BP Pulse Ox 97.9 F 80 20 115/60 92 02/12/17 10:08 02/12/17 10:39 02/12/17 10:08 02/12/17 11:01 02/12/17 04:10 General appearance: Present: no acute distress, well-nourished - EENT Eyes: Present: PERRL, EOM intact ENT: hearing intact, clear oral mucosa, dentition normal - Neck Neck: Present: supple, normal ROM - Respiratory Respiratory effort: normal Respiratory: bilateral: CTA - Cardiovascular Rhythm: regular Heart Sounds: Present: S1 & S2. Absent: gallop, rub - Extremities Extremities: no ischemia, No edema, Full ROM - Abdominal General gastrointestinal: soft, non-tender, non-distended, normal bowel sounds - Integumentary Integumentary: Present: clear, warm, dry - Neurologic Neurologic: CNII-XII intact, moves all extremities Results - Labs CBC & Chem 7: 02/11/17 13:36 02/12/17 04:50 Labs: Laboratory Last Values WBC 5.9 K/mm3 (4.5-11.0) 02/11/17 13:36 RBC 3.87 M/mm3 (3.65-5.03) 02/11/17 13:36 Hgb 10.0 gm/dl (11.8-15.2) L 02/11/17 13:36 Hct 33.2 % (35.5-45.6) L 02/11/17 13:36 MCV 86 fl (84-94) 02/11/17 13:36 MCH 26 pg (28-32) L 02/11/17 13:36 MCHC 30 % (32-34) L 02/11/17 13:36 RDW 23.0 % (13.2-15.2) H 02/11/17 13:36 Plt Count 133 K/mm3 (140-440) L 02/11/17 13:36 Lymph % (Auto) 8.4 % (13.4-35.0) L 02/11/17 13:36 [place] % (Auto) 3.2 % (0.0-7.3) 02/11/17 13:36 Eos % (Auto) 2.2 % (0.0-4.3) 02/11/17 13:36 Baso % (Auto) 0.2 % (0.0-1.8) 02/11/17 13:36 Lymph # 0.5 K/mm3 (1.2-5.4) L 02/11/17 13:36 [place] # 0.2 K/mm3 (0.0-0.8) 02/11/17 13:36 Eos # 0.1 K/mm3 (0.0-0.4) 02/11/17 13:36 Baso # 0.0 K/mm3 (0.0-0.1) 02/11/17 13:36 Seg Neutrophils % 86.0 % (40.0-70.0) H 02/11/17 13:36 Seg Neutrophils # 5.1 K/mm3 (1.8-7.7) 02/11/17 13:36 PT 16.0 Sec. (12.2-14.9) H 02/11/17 14:07 INR 1.29 (0.87-1.13) H 02/11/17 14:07 APTT 37.1 Sec. (24.2-36.6) H 02/11/17 14:07 Sodium 134 mmol/L (137-145) L 02/12/17 04:50 Potassium 5.6 mmol/L (3.6-5.0) H 02/12/17 04:50 Chloride 94.8 mmol/L (98-107) L 02/12/17 04:50 Carbon Dioxide 23 mmol/L (22-30) 02/12/17 04:50 Anion Gap 22 mmol/L 02/12/17 04:50 BUN 86 mg/dL (9-20) H 02/12/17 04:50 Creatinine 9.6 mg/dL (0.8-1.5) H 02/12/17 04:50 Estimated GFR 8 ml/min 02/12/17 04:50 BUN/Creatinine Ratio 8.95 % 02/12/17 04:50 Glucose 90 mg/dL (75-100) 02/12/17 04:50 Calcium 8.2 mg/dL (8.4-10.2) L 02/12/17 04:50 Total Bilirubin 0.6 mg/dL (0.1-1.2) 02/12/17 04:50 AST 18 units/L (5-40) 02/12/17 04:50 ALT 12 units/L (7-56) 02/12/17 04:50 Alkaline Phosphatase 314 units/L (35-129) H 02/12/17 04:50 Total Creatine Kinase 37 units/L (55-170) L 02/12/17 04:50 CK-MB (CK-2) 3.0 ng/mL (0.0-4.0) 02/12/17 04:50 CK-MB (CK-2) Rel Index 8.1 (0-4) H 02/12/17 04:50 Troponin T 0.039 ng/mL (0.00-0.029) H 02/12/17 04:50 NT-Pro-B Natriuret Pep 93173 pg/mL (0-450) H 02/11/17 13:36 Total Protein 7.9 g/dL (6.3-8.2) 02/12/17 04:50 Albumin 3.1 g/dL (3.9-5) L 02/12/17 04:50 Albumin/Globulin Ratio 0.6 % 02/12/17 04:50 Triglycerides 64 mg/dL (2-149) 02/11/17 13:36 Cholesterol 101 mg/dL (50-199) 02/11/17 13:36 LDL Cholesterol Direct 50 mg/dL (50-130) 02/11/17 13:36 HDL Cholesterol 39 mg/dL (40-59) L 02/11/17 13:36 Cholesterol/HDL Ratio 2.58 % 02/11/17 13:36
--- NOTE | 2017-02-12 11:40 | Progress Note ---
Assessment and Plan Atypical chest pain no acute EKG changes stress MPI 12/2015: no ischemia Elevated troponin-->likely due to ESRD minimally elevated but flat Acute on chronic systolic heart failure Echo 01/2017: EF 20-25%, diastolic dysfunction, mild-moderate MR dialysis per nephrology consider diuretic if okay with nephrology continue coreg/isordil/hydralazine no ACEI/ARB due to allergy Hyperkalemia per nephrology Chronic respiratory failure continue O2 supplementation Anemia Likely secondary to anemia of chronic disease Nonischemic cardiomyopathy stress MPI 12/2015: no ischemia normal coronaires on cath at [place] in the past per pt. report. outpatient f/u for consideration of ICD Hypertension Sleep apnea End-stage renal disease on HD HIV disease Dialysis per nephrology. Continue current management and close monitoring of volume status. The patient has been seen in conjunction with Dr. Vicente who agrees with the assessment and plan of care. Subjective Date of service: 02/12/17 Principal diagnosis: acute on chronic systolic heart failure Interval history: The patient is sitting up in bed. C/o shortness of breath and pain "all over." Sinus rhythm on the monitor. Objective Last Vital Signs Temp 97.9 F 02/12/17 10:08 Pulse 80 02/12/17 10:39 Resp 20 02/12/17 10:08 BP 115/60 02/12/17 11:01 Pulse Ox 92 02/12/17 04:10 - Physical Examination General: No Apparent Distress HEENT: Positive: PERRL, Normocephaly, Mucus Membranes Moist Neck: Positive: neck supple, trachea midline Cardiac: Positive: Reg Rate and Rhythm, S1/S2 Lungs: Positive: Decreased Breath Sounds Neuro: Positive: Grossly Intact Abdomen: Positive: Soft, Distended Skin: Positive: Clear. Negative: Rash Extremities: Present: +3 Edema - Labs and Meds Cardiac Enzymes 02/11/17 02/12/17 02/12/17 Range/Units 21:44 04:50 04:50 AST 18 (5-40) units/L CK-MB (CK-2) 3.2 3.0 (0.0-4.0) ng/mL Comprehensive Metabolic Panel 02/12/17 Range/Units 04:50 Sodium 134 L (137-145) mmol/L Potassium 5.6 H (3.6-5.0) mmol/L Chloride 94.8 L (98-107) mmol/L Carbon Dioxide 23 (22-30) mmol/L BUN 86 H (9-20) mg/dL Creatinine 9.6 H (0.8-1.5) mg/dL Glucose 90 (75-100) mg/dL Calcium 8.2 L (8.4-10.2) mg/dL AST 18 (5-40) units/L ALT 12 (7-56) units/L Alkaline Phosphatase 314 H (35-129) units/L Total Protein 7.9 (6.3-8.2) g/dL Albumin 3.1 L (3.9-5) g/dL - Imaging and Cardiology EKG: report reviewed (NSR -no acute st t wave changes) Echo: report reviewed (01/2017: EF 20-25%, diastolic dysfunction, mild-moderate MR) - Telemetry EKG Rhythm: Sinus Rhythm - EKG Sinus rhythms and dysrhythmias: sinus rhythm Chamber hypertrophy or enlargement: left ventricular hypertro Repolarization changes or abnormalities: repolarization abn secondary to ventricular hypertrophy
[2017-02-12] MEDS ORDERED: NACL 0.9% 100 ML IV PRN (14:00)
--- NOTE | 2017-02-12 16:03 | Consultation ---
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 renal consult requested for ESRD and HD management. Past History Past Medical History: anemia, COPD, dialysis, ESRD, heart failure, HIV/AIDS, hypertension, other (history of nonischemic cardiomyopathy) Past Surgical History: Other (AV fistula in left arm) Social history: smoking, full code. denies: alcohol abuse, prescription drug abuse Medications and Allergies Allergies Allergy/AdvReac Type Severity Reaction Status Date / Time ILEANA Inhibitors Allergy Swelling Verified 08/13/15 00:13 acetaminophen [From Tylenol] Allergy Hives Verified 08/13/15 00:13 aspirin Allergy Hives Verified 08/13/15 00:13 egg Allergy Hives Verified 08/13/15 00:13 Egg Derived Allergy Hives Verified 08/13/15 00:13 fish derived Allergy Swelling Verified 08/13/15 00:13 ibuprofen Allergy Swelling Verified 08/13/15 00:13 Milk Containing Products Allergy Hives Verified 08/13/15 00:13 orange juice Allergy Hives Verified 08/13/15 00:13 Penicillins Allergy Hives Verified 08/13/15 00:13 PPD black rubber mix Allergy Swelling Verified 08/13/15 00:13 shellfish derived Allergy Hives Verified 08/13/15 00:13 tomato Allergy Vomiting Verified 08/13/15 00:13 Home Medications Medication Instructions Recorded Confirmed Last Taken Type lamiVUDine [Epivir] 50 mg PO DAILY 09/02/16 02/11/17 09/20/16 History Ipratropium/Albuterol Sulfate 1 ampul IH TIDRT ampul.neb 11/21/16 02/11/17 Unknown Rx [Duoneb 0.5 mg-3 mg/3 ml Soln] Pantoprazole [Protonix TAB] 40 mg PO QDAY tablet 11/21/16 02/11/17 Unknown Rx Diphenhydramine HCl [Benadryl 25 mg PO Q6H PRN #30 tablet 12/15/16 02/11/17 Unknown Rx Allergy TAB] Abacavir [Ziagen TAB] 600 mg PO DAILY tablet 01/17/17 02/11/17 Unknown Rx Arformoterol Nebu [Brovana Nebu] 15 mcg IH Q12HRT ml 01/17/17 02/11/17 Unknown Rx AtorvaSTATin [Lipitor] 40 mg PO QHS tablet 01/17/17 02/11/17 Unknown Rx Budesonide [Pulmicort Respules] 0.5 mg IH Q12HRT nebu 01/17/17 02/11/17 Unknown Rx Calcium Acetate [Phoslo] 667 mg PO TIDWM capsule 01/17/17 02/11/17 Unknown Rx Carvedilol [Coreg] 25 mg PO BID tablet 01/17/17 02/11/17 Unknown Rx Dapsone 100 mg PO BID tablet 01/17/17 02/11/17 Unknown Rx Darunavir [Prezista] 800 mg PO DAILY tablet 01/17/17 02/11/17 Unknown Rx Famotidine [Pepcid] 10 mg PO BID tablet 01/17/17 02/11/17 Unknown Rx Gabapentin [Neurontin] 100 mg PO BID capsule 01/17/17 02/11/17 Unknown Rx Ipratropium/Albuterol Sulfate 1 ampul IH Q6HRT ampul.neb 01/17/17 02/11/17 Unknown Rx [Duoneb 0.5 mg-3 mg/3 ml Soln] Isosorbide Dinitrate [Isordil 40 mg PO Q8HR tablet 01/17/17 02/11/17 Unknown Rx Titradose] Ritonavir [Norvir] 100 mg PO QDAY tab 01/17/17 02/11/17 Unknown Rx amLODIPine [Norvasc] 5 mg PO DAILY tablet 01/17/17 02/11/17 Unknown Rx hydrALAZINE [Apresoline TAB] 100 mg PO TID tab 01/17/17 02/11/17 Unknown Rx Active Meds: Active Medications Abacavir Sulfate (Ziagen) 600 mg PO DAILY [facility] Last Admin: 02/12/17 10:38 Dose: 600 mg Albuterol/Ipratropium (Duoneb 0.5 Mg-3 Mg/3 Ml Soln) 1 ampul IH Q6HRT [facility] Last Admin: 02/12/17 13:28 Dose: 1 ampul Arformoterol Tartrate (Brovana Nebu) 15 mcg IH Q12HRT [facility] Last Admin: 02/12/17 08:33 Dose: Not Given Atorvastatin Calcium (Lipitor) 40 mg PO QHS [facility] Last Admin: 02/11/17 22:54 Dose: 40 mg Bisacodyl (Dulcolax) 10 mg MT QDAY PRN PRN Reason: Constipation unrelieved by MOM Budesonide (Pulmicort) 0.5 mg IH Q12HRT [facility] Last Admin: 02/12/17 08:33 Dose: Not Given Calcium Acetate (Phoslo) 667 mg PO TIDWM [facility] Last Admin: 02/12/17 10:39 Dose: 667 mg Dapsone (Dapsone) 100 mg PO BID [facility] Last Admin: 02/12/17 10:38 Dose: 100 mg Darunavir (Prezista) 800 mg PO DAILY [facility] Last Admin: 02/12/17 10:38 Dose: 800 mg Diphenhydramine HCl (Benadryl) 25 mg PO Q6H PRN PRN Reason: Itching Last Admin: 02/12/17 00:50 Dose: 25 mg Gabapentin (Neurontin) 100 mg PO BID [facility] Last Admin: 02/12/17 10:39 Dose: 100 mg Hydralazine HCl (Apresoline) 100 mg PO TID [facility] Last Admin: 02/12/17 11:01 Dose: 100 mg Sodium Bicarbonate 150 meq/ (Dextrose) 1,150 mls @ 42 mls/hr IV ONCE.ED ONE Stop: 02/13/17 00:09 Last Admin: 02/11/17 21:55 Dose: 42 mls/hr Sodium Chloride (Nacl 0.9%) 100 mls @ 999 mls/hr IV SARAY PRN PRN Reason: Hypotension Isosorbide Dinitrate (Isordil Titradose) 40 mg PO Q8HR [facility] Last Admin: 02/12/17 05:18 Dose: 40 mg Lamivudine (Epivir) 50 mg PO DAILY [facility] Last Admin: 02/12/17 10:41 Dose: 50 mg Magnesium Hydroxide (Milk Of Magnesia) 30 ml PO Q4H PRN PRN Reason: Constipation Morphine Sulfate (Morphine) 2 mg IV Q4H PRN PRN Reason: Pain, Moderate (4-6) Last Admin: 02/12/17 05:18 Dose: 2 mg Ondansetron HCl (Zofran) 4 mg IV Q8H PRN PRN Reason: N/V unrelieved by Reglan Last Admin: 02/12/17 01:44 Dose: 4 mg Pantoprazole Sodium (Protonix) 40 mg PO QDAY [facility] Last Admin: 02/12/17 10:39 Dose: 40 mg Ritonavir (Norvir) 100 mg PO QDAY [facility] Last Admin: 02/12/17 10:37 Dose: 100 mg Sodium Chloride (Sodium Chloride Flush Syringe 10 Ml) 10 ml IV PRN PRN PRN Reason: LINE FLUSH Review of Systems All systems: negative (swelling, SOB, chest pain) Exam - Vital Signs Vital signs: Vital Signs Temp Pulse Resp BP Pulse Ox 97.8 F 103 H 18 145/92 100 02/11/17 12:52 02/11/17 12:52 02/11/17 12:52 02/11/17 12:52 02/11/17 12:52 - General Appearance General appearance: well-developed, obese EENT: ATNC, PERRL, mucous membranes moist Neck: Present: neck supple Respiratory: Decreased Breath Sounds Heart: regular, S1S2 Gastrointestinal: Present: normoactive bowel sounds, obese. Absent: tenderness , distended, masses Integumentary: no rash, warm and dry Neurologic: no focal deficit, no asterixis, alert and oriented x3 Musculoskeletal: Present: other (1+ pitting edema in BLE) Psychiatric: mood/affect appropriate, cooperative Results - Lab Results 02/11/17 13:36 02/12/17 04:50 Most recent lab results Calcium 8.2 mg/dL (8.4-10.2) L 02/12/17 04:50 Assessment and Plan (1) Chest pain Current Visit: No Status: Acute Qualifiers: Chest pain type: unspecified Qualified Code(s): R07.9 - Chest pain, unspecified Plan to address problem: followed by Cardiology (2) Hyperkalemia Current Visit: Yes Status: Acute Plan to address problem: HD today (3) hypoxic respiratory failure due to pulmonary congestion Current Visit: Yes Status: Chronic Qualifiers: Congestive heart failure type: combined Congestive heart failure chronicity : C Plan to address problem: UF 2-3 L ordered, will order HD again tomorrow for UF (4) End-stage renal disease needing dialysis Current Visit: Yes Status: Chronic Plan to address problem: will assess dialysis needs daily current access L AVF is functional renally dose meds renal diet strict I&O (5) HTN with chronic kidney disease stage 5 Current Visit: Yes Status: Chronic Plan to address problem: will hold BP meds, noted to have low BP during HD, will hold to improve UF tolerability
[2017-02-12] MEDS ORDERED: NACL 0.9 (PRIMING MACHINE ONLY DIALYSIS) MC ONE (17:01)
[2017-02-12] MEDS: MILK OF MAGNESIA PO PRN (22:37)
[2017-02-13] MEDS: MORPHINE IV PRN ×5 (00:46→23:08)
[2017-02-13] MEDS: DUONEB 0.5 MG-3 MG/3 ML SOLN IH SCH ×4 (02:31→20:15)
[2017-02-13] MEDS: ISORDIL TITRADOSE PO SCH ×3 (05:33→21:59)
[2017-02-13 07:40] LABS: BUN/Creatinine Ratio 8.31; Chloride 92.5 mmol/L (98-107); Phosphorous 4.7 mg/dL (2.5-4.5)
[2017-02-13 07:43] LABS: Basophils % (Auto) 0.1 % (0.0-1.8); Eosinophils % (Auto) 1.5 % (0.0-4.3); Hematocrit 29.5 % (35.5-45.6); Hemoglobin 9.2 gm/dl (11.8-15.2); Mean Corpuscular HGB Conc 31 % (32-34); Mean Corpuscular Hemoglobin 26 pg (28-32); Mean Corpuscular Volume 85 fl (84-94); Platelet Count 118 K/mm3 (140-440); Red Blood Count 3.49 M/mm3 (3.65-5.03); White Blood Count 4.6 K/mm3 (4.5-11.0)
[2017-02-13 07:44] LABS: Red Cell Distribution Width 22.7 % (13.2-15.2)
[2017-02-13] MEDS: BROVANA NEBU IH SCH ×2 (08:44→20:15)
[2017-02-13] MEDS: PULMICORT IH SCH ×2 (08:44→20:15)
[2017-02-13] MEDS: NORVIR PO SCH (10:06)
[2017-02-13] MEDS: NEURONTIN PO SCH ×2 (10:06→21:58)
[2017-02-13] MEDS: PHOSLO PO SCH ×3 (10:06→16:53)
[2017-02-13] MEDS: APRESOLINE PO SCH ×3 (10:06→21:58)
[2017-02-13] MEDS: PROTONIX PO SCH (10:06)
[2017-02-13] MEDS: BENADRYL PO PRN ×2 (10:06→16:53)
[2017-02-13] MEDS: ZIAGEN PO SCH (10:06)
[2017-02-13] MEDS: PREZISTA PO SCH (10:09)
[2017-02-13] MEDS: EPIVIR PO SCH (11:22)
--- NOTE | 2017-02-13 11:22 | Progress Note ---
Assessment and Plan Atypical chest pain no acute EKG changes stress MPI 12/2015: no ischemia Elevated troponin-->likely due to ESRD minimally elevated but flat Acute on chronic systolic heart failure Echo 01/2017: EF 20-25%, diastolic dysfunction, mild-moderate MR dialysis per nephrology consider diuretic if okay with nephrology continue coreg/isordil/hydralazine no ACEI/ARB due to allergy Hyperkalemia per nephrology Chronic respiratory failure continue O2 supplementation Anemia Likely secondary to anemia of chronic disease Nonischemic cardiomyopathy stress MPI 12/2015: no ischemia normal coronaires on cath at [place] in the past per pt. report. outpatient f/u for consideration of ICD Hypertension Sleep apnea End-stage renal disease on HD HIV disease Dialysis per nephrology. Continue current management and close monitoring of volume status. The patient has been seen in conjunction with Dr. Vicente who agrees with the assessment and plan of care. Subjective Date of service: 02/13/17 Principal diagnosis: acute on chronic systolic heart failure Interval history: The patient is sitting up in a chair. Continue to c/o pain "all over" and lower extremity swelling. Sinus rhythm on the monitor. Objective Last Vital Signs Temp 97.6 F 02/13/17 08:54 Pulse 92 H 02/13/17 08:54 Resp 20 02/13/17 08:54 BP 129/60 02/13/17 08:54 Pulse Ox 90 02/13/17 08:54 - Physical Examination General: No Apparent Distress HEENT: Positive: PERRL, Normocephaly, Mucus Membranes Moist Neck: Positive: neck supple Cardiac: Positive: Reg Rate and Rhythm, S1/S2 Lungs: Positive: Decreased Breath Sounds Neuro: Positive: Grossly Intact Abdomen: Positive: Soft, Distended Skin: Positive: Clear. Negative: Rash Extremities: Present: +3 Edema - Labs and Meds CBC 02/13/17 Range/Units 04:58 WBC 4.6 (4.5-11.0) K/mm3 RBC 3.49 L (3.65-5.03) M/mm3 Hgb 9.2 L (11.8-15.2) gm/dl Hct 29.5 L (35.5-45.6) % Plt Count 118 L (140-440) K/mm3 Lymph # 0.4 L (1.2-5.4) K/mm3 [place] # 0.3 (0.0-0.8) K/mm3 Eos # 0.1 (0.0-0.4) K/mm3 Baso # 0.0 (0.0-0.1) K/mm3 Comprehensive Metabolic Panel 02/13/17 Range/Units 04:58 Sodium 134 L (137-145) mmol/L Potassium 5.0 (3.6-5.0) mmol/L Chloride 92.5 L (98-107) mmol/L Carbon Dioxide 24 (22-30) mmol/L BUN 64 H (9-20) mg/dL Creatinine 7.7 H (0.8-1.5) mg/dL Glucose 96 (75-100) mg/dL Calcium 8.0 L (8.4-10.2) mg/dL - Imaging and Cardiology EKG: report reviewed (NSR -no acute st t wave changes) Echo: report reviewed (01/2017: EF 20-25%, diastolic dysfunction, mild-moderate MR) - Telemetry EKG Rhythm: Sinus Rhythm - EKG Sinus rhythms and dysrhythmias: sinus rhythm Chamber hypertrophy or enlargement: left ventricular hypertro Repolarization changes or abnormalities: repolarization abn secondary to ventricular hypertrophy
[2017-02-13] MEDS: DAPSONE PO SCH ×2 (11:26→22:00)
--- NOTE | 2017-02-13 11:27 | Progress Note ---
Assessment and Plan Assessment and plan: 1. Atypical chest pain. Patient with no acute EKG changes and stress MPI 2015 with no ischemia 2. Elevated troponin. Etiology likely due to ESRD. Cardiology following. 3. Acute on chronic systolic heart failure Echo 12/2015: EF 20-25%, impaired relaxation dialysis per nephrology consider diuretic if okay with nephrology continue coreg/isordil/hydralazine no ACEI/ARB due to allergy Repeat echocardiogram today. 4. Hyperkalemia. Continue hemodialysis per nephrology. Follow BMP. 5. Chronic respiratory failure. Continue O2 supplementation 6. Anemia. Etiology likely secondary to anemia of chronic disease. Check Hemoccult stools. 7. Nonischemic cardiomyopathy stress MPI 12/2015: no ischemia normal coronaires on cath at [place] in the past per pt. report. outpatient f/u for consideration of ICD 8. Hypertension. Resume antihypertensive medications 9. Sleep apnea 10. End-stage renal disease on HD. Continue per nephrology. 11. HIV disease. Consider ID consultation. History Interval history: The patient is a 36 year old male with a history of chronic systolic heart failure, non-ischemic cardiomyopathy, chronic respiratory failure on home O2, ESRD on HD, HIV who presented with left sided chest pain, shortness of breath and "swelling all over" for the past several days. No new issues overnight. Hospitalist Physical - Constitutional Vitals: Temp Pulse Resp BP Pulse Ox 97.6 F 92 H 20 129/60 90 02/13/17 08:54 02/13/17 08:54 02/13/17 08:54 02/13/17 08:54 02/13/17 08:54 General appearance: Present: no acute distress, well-nourished - EENT Eyes: Present: PERRL, EOM intact ENT: hearing intact, clear oral mucosa, dentition normal - Neck Neck: Present: supple, normal ROM - Respiratory Respiratory effort: normal Respiratory: bilateral: CTA - Cardiovascular Rhythm: regular Heart Sounds: Present: S1 & S2. Absent: gallop, rub - Extremities Extremities: no ischemia, Full ROM Extremity abnormal: edema - Abdominal General gastrointestinal: soft, non-tender, non-distended, normal bowel sounds - Integumentary Integumentary: Present: clear, warm, dry - Neurologic Neurologic: CNII-XII intact, moves all extremities Results - Labs CBC & Chem 7: 02/13/17 04:58 02/13/17 04:58 Labs: Laboratory Last Values WBC 4.6 K/mm3 (4.5-11.0) 02/13/17 04:58 RBC 3.49 M/mm3 (3.65-5.03) L 02/13/17 04:58 Hgb 9.2 gm/dl (11.8-15.2) L 02/13/17 04:58 Hct 29.5 % (35.5-45.6) L 02/13/17 04:58 MCV 85 fl (84-94) 02/13/17 04:58 MCH 26 pg (28-32) L 02/13/17 04:58 MCHC 31 % (32-34) L 02/13/17 04:58 RDW 22.7 % (13.2-15.2) H 02/13/17 04:58 Plt Count 118 K/mm3 (140-440) L 02/13/17 04:58 Lymph % (Auto) 9.3 % (13.4-35.0) L 02/13/17 04:58 [place] % (Auto) 5.5 % (0.0-7.3) 02/13/17 04:58 Eos % (Auto) 1.5 % (0.0-4.3) 02/13/17 04:58 Baso % (Auto) 0.1 % (0.0-1.8) 02/13/17 04:58 Lymph # 0.4 K/mm3 (1.2-5.4) L 02/13/17 04:58 [place] # 0.3 K/mm3 (0.0-0.8) 02/13/17 04:58 Eos # 0.1 K/mm3 (0.0-0.4) 02/13/17 04:58 Baso # 0.0 K/mm3 (0.0-0.1) 02/13/17 04:58 Seg Neutrophils % 83.6 % (40.0-70.0) H 02/13/17 04:58 Seg Neutrophils # 3.8 K/mm3 (1.8-7.7) 02/13/17 04:58 PT 16.0 Sec. (12.2-14.9) H 02/11/17 14:07 INR 1.29 (0.87-1.13) H 02/11/17 14:07 APTT 37.1 Sec. (24.2-36.6) H 02/11/17 14:07 Sodium 134 mmol/L (137-145) L 02/13/17 04:58 Potassium 5.0 mmol/L (3.6-5.0) 02/13/17 04:58 Chloride 92.5 mmol/L (98-107) L 02/13/17 04:58 Carbon Dioxide 24 mmol/L (22-30) 02/13/17 04:58 Anion Gap 23 mmol/L 02/13/17 04:58 BUN 64 mg/dL (9-20) H 02/13/17 04:58 Creatinine 7.7 mg/dL (0.8-1.5) H 02/13/17 04:58 Estimated GFR 10 ml/min 02/13/17 04:58 BUN/Creatinine Ratio 8.31 % 02/13/17 04:58 Glucose 96 mg/dL (75-100) 02/13/17 04:58 Calcium 8.0 mg/dL (8.4-10.2) L 02/13/17 04:58 Phosphorus 4.7 mg/dL (2.5-4.5) H 02/13/17 04:58 Total Bilirubin 0.6 mg/dL (0.1-1.2) 02/12/17 04:50 AST 18 units/L (5-40) 02/12/17 04:50 ALT 12 units/L (7-56) 02/12/17 04:50 Alkaline Phosphatase 314 units/L (35-129) H 02/12/17 04:50 Total Creatine Kinase 37 units/L (55-170) L 02/12/17 04:50 CK-MB (CK-2) 3.0 ng/mL (0.0-4.0) 02/12/17 04:50 CK-MB (CK-2) Rel Index 8.1 (0-4) H 02/12/17 04:50 Troponin T 0.039 ng/mL (0.00-0.029) H 02/12/17 04:50 NT-Pro-B Natriuret Pep 41769 pg/mL (0-450) H 02/11/17 13:36 Total Protein 7.9 g/dL (6.3-8.2) 02/12/17 04:50 Albumin 3.1 g/dL (3.9-5) L 02/12/17 04:50 Albumin/Globulin Ratio 0.6 % 02/12/17 04:50 Triglycerides 64 mg/dL (2-149) 02/11/17 13:36 Cholesterol 101 mg/dL (50-199) 02/11/17 13:36 LDL Cholesterol Direct 50 mg/dL (50-130) 02/11/17 13:36 HDL Cholesterol 39 mg/dL (40-59) L 02/11/17 13:36 Cholesterol/HDL Ratio 2.58 % 02/11/17 13:36
--- NOTE | 2017-02-13 15:37 | Progress Note ---
Assessment and Plan - Patient Problems (1) ESRD (end stage renal disease) on dialysis Current Visit: No Status: Chronic Plan to address problem: Received hemodialysis yesterday. Scheduled to receive another hemodialysis treatment today Fluid restriction of 1000 ml per day Obtain daily weights Renally dose medications Monitor I/O's Assess dialysis needs daily (2) HTN (hypertension) Current Visit: No Status: Chronic Qualifiers: Hypertension type: essential hypertension Qualified Code(s): I10 - Essential (primary) hypertension Plan to address problem: Blood pressures are better today (3) HIV positive Current Visit: Yes Status: Chronic Plan to address problem: On anti-retrovirals (4) Chest pain Current Visit: No Status: Acute Qualifiers: Chest pain type: unspecified Qualified Code(s): R07.9 - Chest pain, unspecified Plan to address problem: As per Cardiology Subjective Date of service: 02/13/17 Principal diagnosis: acute on chronic systolic heart failure Interval history: Seen lying in bed. Receiving hemodialysis at bedside. Objective - Vital Signs Vital signs: Vital Signs - 12hr 02/13/17 02/13/17 02/13/17 05:00 05:33 08:44 Temperature 97.5 F L Pulse Rate 90 Pulse Rate [ 94 H Anterior Bilateral Throughout] Pulse Rate [ 90 Left] Respiratory 20 Rate Respiratory 20 Rate [Anterior Bilateral Throughout] Blood Pressure 130/68 Blood Pressure 130/68 [Left Arm] O2 Sat by Pulse 93 93 Oximetry 02/13/17 02/13/17 02/13/17 08:54 10:00 13:30 Temperature 97.6 F Pulse Rate 92 H Pulse Rate [ 92 H Anterior Bilateral Throughout] Pulse Rate [ 85 Left] Respiratory 22 20 Rate Respiratory 20 Rate [Anterior Bilateral Throughout] Blood Pressure 153/65 Blood Pressure 129/60 [Left Arm] O2 Sat by Pulse 90 Oximetry 02/13/17 02/13/17 02/13/17 13:45 14:00 14:15 Temperature Pulse Rate 92 H 92 H 92 H Pulse Rate [ Anterior Bilateral Throughout] Pulse Rate [ Left] Respiratory Rate Respiratory Rate [Anterior Bilateral Throughout] Blood Pressure 154/73 119/65 122/61 Blood Pressure [Left Arm] O2 Sat by Pulse Oximetry 02/13/17 02/13/17 02/13/17 14:30 14:45 15:00 Temperature Pulse Rate 94 H 93 H 94 H Pulse Rate [ Anterior Bilateral Throughout] Pulse Rate [ Left] Respiratory Rate Respiratory Rate [Anterior Bilateral Throughout] Blood Pressure 116/63 122/62 126/64 Blood Pressure [Left Arm] O2 Sat by Pulse Oximetry 02/13/17 02/13/17 15:15 15:30 Temperature Pulse Rate 96 H 94 H Pulse Rate [ Anterior Bilateral Throughout] Pulse Rate [ Left] Respiratory Rate Respiratory Rate [Anterior Bilateral Throughout] Blood Pressure 131/61 128/68 Blood Pressure [Left Arm] O2 Sat by Pulse Oximetry - General Appearance General appearance: well-developed, appears stated age, fatigue EENT: ATNC, PERRL, hearing intact, vision intact Neck: no JVD, supple Respiratory: Present: Decreased Breath Sounds Cardiology: tachycardia, S1S2 Gastrointestinal: normoactive bowel sounds Integumentary: warm and dry Neurologic: alert and oriented x3 Musculoskeletal: other (Left AVF in use) - Lab 02/13/17 04:58 02/13/17 04:58 Most recent lab results Calcium 8.0 mg/dL (8.4-10.2) L 02/13/17 04:58 Phosphorus 4.7 mg/dL (2.5-4.5) H 02/13/17 04:58
[2017-02-14] MEDS: DUONEB 0.5 MG-3 MG/3 ML SOLN IH SCH ×5 (02:13→19:36)
[2017-02-14] MEDS: MORPHINE IV PRN ×5 (03:53→22:46)
[2017-02-14 05:45] LABS: Basophils % (Auto) 0.1 % (0.0-1.8); Eosinophils % (Auto) 0.2 % (0.0-4.3); Hematocrit 30.3 % (35.5-45.6); Hemoglobin 9.4 gm/dl (11.8-15.2); Mean Corpuscular HGB Conc 31 % (32-34); Mean Corpuscular Volume 84 fl (84-94); Platelet Count 119 K/mm3 (140-440); Red Blood Count 3.63 M/mm3 (3.65-5.03); White Blood Count 4.7 K/mm3 (4.5-11.0)
[2017-02-14 05:46] LABS: Mean Corpuscular Hemoglobin 26 pg (28-32); Red Cell Distribution Width 22.8 % (13.2-15.2)
[2017-02-14 06:17] LABS: BUN/Creatinine Ratio 6.43; Calcium 8.5 mg/dL (8.4-10.2); Chloride 92.5 mmol/L (98-107); Phosphorous 4.1 mg/dL (2.5-4.5); Potassium 4.9 mmol/L (3.6-5.0)
[2017-02-14] MEDS: ISORDIL TITRADOSE PO SCH ×3 (07:11→22:12)
[2017-02-14] MEDS: PULMICORT IH SCH ×2 (07:55→19:37)
[2017-02-14] MEDS: BROVANA NEBU IH SCH ×2 (08:28→19:37)
--- NOTE | 2017-02-14 08:43 | Progress Note ---
Assessment and Plan Atypical chest pain no acute EKG changes stress MPI 12/2015: no ischemia Elevated troponin-->likely due to ESRD minimally elevated but flat Acute on chronic systolic heart failure Echo 01/2017: EF 20-25%, diastolic dysfunction, mild-moderate MR dialysis per nephrology consider diuretic if okay with nephrology continue coreg/isordil/hydralazine no ACEI/ARB due to allergy Hyperkalemia per nephrology Chronic respiratory failure continue O2 supplementation Anemia Likely secondary to anemia of chronic disease Nonischemic cardiomyopathy stress MPI 12/2015: no ischemia normal [facility] on cath at [place] in the past per pt. report. outpatient f/u for consideration of ICD Hypertension Sleep apnea End-stage renal disease on HD HIV disease Stable cardiac status. Dialysis per nephrology. Continue current management and close monitoring of volume status. The patient has been seen in conjunction with Dr. Hunt who agrees with the assessment and plan of care. Subjective Date of service: 02/14/17 Principal diagnosis: acute on chronic systolic heart failure Interval history: The patient is sitting up in bed. He feels better today. Sinus rhythm on the monitor. Objective Last Vital Signs Temp 98.0 F 02/14/17 07:59 Pulse 104 H 02/14/17 08:10 Resp 16 02/14/17 08:10 BP 139/73 02/14/17 07:59 Pulse Ox 93 02/14/17 08:00 - Physical Examination General: No Apparent Distress HEENT: Positive: PERRL, Normocephaly, Mucus Membranes Moist Neck: Positive: neck supple, trachea midline Cardiac: Positive: Reg Rate and Rhythm, S1/S2 Lungs: Positive: Decreased Breath Sounds Neuro: Positive: Grossly Intact Abdomen: Positive: Soft, Distended Skin: Positive: Clear. Negative: Rash Extremities: Present: +2 Edema (chronic changes) - Labs and Meds CBC 02/14/17 Range/Units 04:30 WBC 4.7 (4.5-11.0) K/mm3 RBC 3.63 L (3.65-5.03) M/mm3 Hgb 9.4 L (11.8-15.2) gm/dl Hct 30.3 L (35.5-45.6) % Plt Count 119 L (140-440) K/mm3 Lymph # 0.4 L (1.2-5.4) K/mm3 [place] # 0.4 (0.0-0.8) K/mm3 Eos # 0.0 (0.0-0.4) K/mm3 Baso # 0.0 (0.0-0.1) K/mm3 Comprehensive Metabolic Panel 02/14/17 Range/Units 04:30 Sodium 132 L (137-145) mmol/L Potassium 4.9 (3.6-5.0) mmol/L Chloride 92.5 L (98-107) mmol/L Carbon Dioxide 25 (22-30) mmol/L BUN 47 H (9-20) mg/dL Creatinine 7.3 H (0.8-1.5) mg/dL Glucose 70 L (75-100) mg/dL Calcium 8.5 (8.4-10.2) mg/dL - Imaging and Cardiology EKG: report reviewed (NSR -no acute st t wave changes) Echo: report reviewed (01/2017: EF 20-25%, diastolic dysfunction, mild-moderate MR) - Telemetry EKG Rhythm: Sinus Rhythm - EKG Sinus rhythms and dysrhythmias: sinus rhythm Chamber hypertrophy or enlargement: left ventricular hypertro Repolarization changes or abnormalities: repolarization abn secondary to ventricular hypertrophy
[2017-02-14] MEDS: APRESOLINE PO SCH ×3 (08:52→22:12)
[2017-02-14] MEDS: DAPSONE PO SCH ×2 (09:00→22:12)
[2017-02-14] MEDS: PROTONIX PO SCH (09:00)
[2017-02-14] MEDS: NORVIR PO SCH (09:01)
[2017-02-14] MEDS: ZIAGEN PO SCH (09:01)
[2017-02-14] MEDS: PREZISTA PO SCH (09:01)
[2017-02-14] MEDS: NEURONTIN PO SCH ×2 (09:03→22:13)
[2017-02-14] MEDS: BENADRYL PO PRN ×3 (09:21→22:46)
[2017-02-14] MEDS: PHOSLO PO SCH ×3 (09:21→18:29)
--- NOTE | 2017-02-14 09:28 | Progress Note ---
Assessment and Plan (1) ESRD (end stage renal disease) on dialysis Current Visit: No Status: Chronic Plan to address problem: HD today for clearance and volume removal will increase sodium bath for low Na Fluid restriction of 1000 ml per day Obtain daily weights Renally dose medications Monitor I/O's Assess dialysis needs daily (2) HTN (hypertension) Current Visit: No Status: Chronic Qualifiers: Hypertension type: essential hypertension Qualified Code(s): I10 - Essential (primary) hypertension Plan to address problem: cont current regimen (3) HIV positive Current Visit: Yes Status: Chronic Plan to address problem: On anti-retrovirals (4) Chest pain Current Visit: No Status: Acute Qualifiers: Chest pain type: unspecified Qualified Code(s): R07.9 - Chest pain, unspecified Plan to address problem: As per Cardiology Subjective Date of service: 02/14/17 Principal diagnosis: acute on chronic systolic heart failure Interval history: feels better, requesting to go home Objective - Vital Signs Vital signs: Vital Signs - 12hr 02/13/17 02/14/17 02/14/17 21:59 00:05 03:53 Temperature 98.2 F Pulse Rate 99 H Pulse Rate [ Anterior Bilateral Throughout] Pulse Rate [ 82 Left] Pulse Rate [ Right] Respiratory 20 Rate Respiratory Rate [Anterior Bilateral Throughout] Blood Pressure 128/90 Blood Pressure 134/88 [Left Arm] Blood Pressure [Right Arm] O2 Sat by Pulse 93 Oximetry 02/14/17 02/14/17 02/14/17 04:42 06:00 07:11 Temperature 98.5 F Pulse Rate 101 H 104 H Pulse Rate [ Anterior Bilateral Throughout] Pulse Rate [ 104 H Left] Pulse Rate [ Right] Respiratory 20 Rate Respiratory Rate [Anterior Bilateral Throughout] Blood Pressure 126/69 Blood Pressure 126/69 [Left Arm] Blood Pressure [Right Arm] O2 Sat by Pulse 90 Oximetry 02/14/17 02/14/17 02/14/17 07:55 07:59 08:00 Temperature 98.0 F Pulse Rate Pulse Rate [ 101 H Anterior Bilateral Throughout] Pulse Rate [ Left] Pulse Rate [ 101 H Right] Respiratory 20 Rate Respiratory 16 Rate [Anterior Bilateral Throughout] Blood Pressure Blood Pressure [Left Arm] Blood Pressure 139/73 [Right Arm] O2 Sat by Pulse 89 93 Oximetry 02/14/17 08:10 Temperature Pulse Rate Pulse Rate [ 104 H Anterior Bilateral Throughout] Pulse Rate [ Left] Pulse Rate [ Right] Respiratory Rate Respiratory 16 Rate [Anterior Bilateral Throughout] Blood Pressure Blood Pressure [Left Arm] Blood Pressure [Right Arm] O2 Sat by Pulse Oximetry - General Appearance General appearance: well-developed, well-nourished EENT: ATNC, PERRL, mucous membranes moist Neck: no JVD, no carotid bruit Respiratory: Present: Clear to Ascultation Cardiology: regular, S1S2 Gastrointestinal: normoactive bowel sounds, no tenderness, no distended Integumentary: no rash, warm and dry Neurologic: no focal deficit, no asterixis, alert and oriented x3 Musculoskeletal: other (non pitting edema in BLE) Psychiatric: mood/affect appropriate, cooperative - Lab 02/14/17 04:30 02/14/17 04:30 Most recent lab results Calcium 8.5 mg/dL (8.4-10.2) 02/14/17 04:30 Phosphorus 4.1 mg/dL (2.5-4.5) 02/14/17 04:30
[2017-02-14] MEDS: EPIVIR PO SCH (09:47)
--- NOTE | 2017-02-14 10:00 | Progress Note ---
Assessment and Plan Assessment and plan: 1. Atypical chest pain. Patient with no acute EKG changes and stress MPI 2015 with no ischemia 2. Elevated troponin. Etiology likely due to ESRD. Cardiology following. 3. Acute on chronic systolic heart failure Echo 12/2015: EF 20-25%, impaired relaxation dialysis per nephrology for volume control. continue coreg/isordil/hydralazine no ACEI/ARB due to allergy Repeat echocardiogram revealed left ventricular size mild to moderately dilated EF measured at 20-25% Mild to moderate mitral regurgitation and mild pulmonary hypertension. 4. Hyperkalemia. Continue hemodialysis per nephrology. Follow BMP. 5. Chronic respiratory failure. Continue O2 supplementation 6. Anemia. Etiology likely secondary to anemia of chronic disease. Check Hemoccult stools. 7. Nonischemic cardiomyopathy stress MPI 12/2015: no ischemia normal coron[facility] on cath at [place] in the past per pt. report. outpatient f/u for consideration of ICD 8. Hypertension. Resume antihypertensive medications 9. Sleep apnea 10. End-stage renal disease on HD. Continue per nephrology. 11. HIV disease. Consider ID consultation. History Interval history: The patient is a 36 year old male with a history of chronic systolic heart failure, non-ischemic cardiomyopathy, chronic respiratory failure on home O2, ESRD on HD, HIV who presented with left sided chest pain, shortness of breath and "swelling all over" for the past several days. No new issues overnight. Hospitalist Physical - Constitutional Vitals: Temp Pulse Resp BP Pulse Ox 98.0 F 104 H 16 139/73 93 02/14/17 07:59 02/14/17 08:10 02/14/17 08:10 02/14/17 07:59 02/14/17 08:00 General appearance: Present: no acute distress, well-nourished - EENT Eyes: Present: PERRL, EOM intact ENT: hearing intact, clear oral mucosa, dentition normal - Neck Neck: Present: supple, normal ROM - Respiratory Respiratory effort: normal Respiratory: bilateral: diminished, rales - Cardiovascular Rhythm: regular Heart Sounds: Present: S1 & S2. Absent: gallop, rub - Extremities Extremities: no ischemia, No edema, Full ROM - Abdominal General gastrointestinal: soft, non-tender, non-distended, normal bowel sounds - Integumentary Integumentary: Present: clear, warm, dry - Neurologic Neurologic: CNII-XII intact, moves all extremities Results - Labs CBC & Chem 7: 02/14/17 04:30 02/14/17 04:30 Labs: Laboratory Last Values WBC 4.7 K/mm3 (4.5-11.0) 02/14/17 04:30 RBC 3.63 M/mm3 (3.65-5.03) L 02/14/17 04:30 Hgb 9.4 gm/dl (11.8-15.2) L 02/14/17 04:30 Hct 30.3 % (35.5-45.6) L 02/14/17 04:30 MCV 84 fl (84-94) 02/14/17 04:30 MCH 26 pg (28-32) L 02/14/17 04:30 MCHC 31 % (32-34) L 02/14/17 04:30 RDW 22.8 % (13.2-15.2) H 02/14/17 04:30 Plt Count 119 K/mm3 (140-440) L 02/14/17 04:30 Lymph % (Auto) 9.4 % (13.4-35.0) L 02/14/17 04:30 [place] % (Auto) 7.6 % (0.0-7.3) H 02/14/17 04:30 Eos % (Auto) 0.2 % (0.0-4.3) 02/14/17 04:30 Baso % (Auto) 0.1 % (0.0-1.8) 02/14/17 04:30 Lymph # 0.4 K/mm3 (1.2-5.4) L 02/14/17 04:30 [place] # 0.4 K/mm3 (0.0-0.8) 02/14/17 04:30 Eos # 0.0 K/mm3 (0.0-0.4) 02/14/17 04:30 Baso # 0.0 K/mm3 (0.0-0.1) 02/14/17 04:30 Seg Neutrophils % 82.7 % (40.0-70.0) H 02/14/17 04:30 Seg Neutrophils # 3.9 K/mm3 (1.8-7.7) 02/14/17 04:30 PT 16.0 Sec. (12.2-14.9) H 02/11/17 14:07 INR 1.29 (0.87-1.13) H 02/11/17 14:07 APTT 37.1 Sec. (24.2-36.6) H 02/11/17 14:07 Sodium 132 mmol/L (137-145) L 02/14/17 04:30 Potassium 4.9 mmol/L (3.6-5.0) 02/14/17 04:30 Chloride 92.5 mmol/L (98-107) L 02/14/17 04:30 Carbon Dioxide 25 mmol/L (22-30) 02/14/17 04:30 Anion Gap 19 mmol/L 02/14/17 04:30 BUN 47 mg/dL (9-20) H 02/14/17 04:30 Creatinine 7.3 mg/dL (0.8-1.5) H 02/14/17 04:30 Estimated GFR 10 ml/min 02/14/17 04:30 BUN/Creatinine Ratio 6.43 % 02/14/17 04:30 Glucose 70 mg/dL (75-100) L 02/14/17 04:30 Calcium 8.5 mg/dL (8.4-10.2) 02/14/17 04:30 Phosphorus 4.1 mg/dL (2.5-4.5) 02/14/17 04:30 Total Bilirubin 0.6 mg/dL (0.1-1.2) 02/12/17 04:50 AST 18 units/L (5-40) 02/12/17 04:50 ALT 12 units/L (7-56) 02/12/17 04:50 Alkaline Phosphatase 314 units/L (35-129) H 02/12/17 04:50 Total Creatine Kinase 37 units/L (55-170) L 02/12/17 04:50 CK-MB (CK-2) 3.0 ng/mL (0.0-4.0) 02/12/17 04:50 CK-MB (CK-2) Rel Index 8.1 (0-4) H 02/12/17 04:50 Troponin T 0.039 ng/mL (0.00-0.029) H 02/12/17 04:50 NT-Pro-B Natriuret Pep 40225 pg/mL (0-450) H 02/11/17 13:36 Total Protein 7.9 g/dL (6.3-8.2) 02/12/17 04:50 Albumin 3.1 g/dL (3.9-5) L 02/12/17 04:50 Albumin/Globulin Ratio 0.6 % 02/12/17 04:50 Triglycerides 64 mg/dL (2-149) 02/11/17 13:36 Cholesterol 101 mg/dL (50-199) 02/11/17 13:36 LDL Cholesterol Direct 50 mg/dL (50-130) 02/11/17 13:36 HDL Cholesterol 39 mg/dL (40-59) L 02/11/17 13:36 Cholesterol/HDL Ratio 2.58 % 02/11/17 13:36
[2017-02-14] MEDS ORDERED: NACL 0.9 (PRIMING MACHINE ONLY DIALYSIS) MC ONE (13:14)
[2017-02-15] MEDS: DUONEB 0.5 MG-3 MG/3 ML SOLN IH SCH ×3 (02:02→19:58)
[2017-02-15] MEDS: MORPHINE IV PRN ×4 (03:02→20:49)
[2017-02-15 05:51] LABS: Basophils % (Auto) 0.3 % (0.0-1.8); Eosinophils % (Auto) 0.4 % (0.0-4.3); Hematocrit 29.6 % (35.5-45.6); Hemoglobin 9.2 gm/dl (11.8-15.2); Mean Corpuscular HGB Conc 31 % (32-34); Mean Corpuscular Volume 83 fl (84-94); Platelet Count 112 K/mm3 (140-440); Red Blood Count 3.56 M/mm3 (3.65-5.03); White Blood Count 4.4 K/mm3 (4.5-11.0)
[2017-02-15 05:52] LABS: Mean Corpuscular Hemoglobin 26 pg (28-32); Red Cell Distribution Width 22.7 % (13.2-15.2)
[2017-02-15] MEDS: ISORDIL TITRADOSE PO SCH ×3 (06:01→22:02)
[2017-02-15 06:39] LABS: BUN/Creatinine Ratio 5.57; Calcium 8.8 mg/dL (8.4-10.2); Chloride 92.3 mmol/L (98-107); Potassium 4.4 mmol/L (3.6-5.0)
[2017-02-15] MEDS: BROVANA NEBU IH SCH ×2 (08:33→19:58)
[2017-02-15] MEDS: PULMICORT IH SCH ×2 (08:33→19:58)
[2017-02-15] MEDS: PHOSLO PO SCH ×3 (08:35→16:46)
--- NOTE | 2017-02-15 09:29 | Progress Note ---
Assessment and Plan Atypical chest pain no acute EKG changes stress MPI 12/2015: no ischemia Elevated troponin-->likely due to ESRD minimally elevated but flat Acute on chronic systolic heart failure Echo 01/2017: EF 20-25%, diastolic dysfunction, mild-moderate MR dialysis per nephrology consider diuretic if okay with nephrology continue coreg/isordil/hydralazine no ACEI/ARB due to allergy Hyperkalemia per nephrology Chronic respiratory failure continue O2 supplementation Anemia Likely secondary to anemia of chronic disease Nonischemic cardiomyopathy stress MPI 12/2015: no ischemia normal coron[facility] on cath at [place] in the past per pt. report. outpatient f/u for consideration of ICD Hypertension Sleep apnea End-stage renal disease on HD HIV disease Stable cardiac status. Dialysis per nephrology. Continue current management and close monitoring of volume status. The patient has been seen in conjunction with Dr. Hunt who agrees with the assessment and plan of care. Subjective Date of service: 02/15/17 Principal diagnosis: acute on chronic systolic heart failure Interval history: The patient c/o intermittent substernal chest pain described as "stabbing" pain. Sinus rhythm on the monitor. Objective Last Vital Signs Temp 98.0 F 02/15/17 07:30 Pulse 106 H 02/15/17 08:55 Resp 20 02/15/17 08:55 BP 140/81 02/15/17 07:30 Pulse Ox 95 02/15/17 08:53 - Physical Examination General: No Apparent Distress HEENT: Positive: PERRL, Normocephaly, Mucus Membranes Moist Neck: Positive: neck supple, trachea midline Cardiac: Positive: Reg Rate and Rhythm, S1/S2 Lungs: Positive: Decreased Breath Sounds Neuro: Positive: Grossly Intact Abdomen: Positive: Soft, Distended Skin: Positive: Clear. Negative: Rash Extremities: Present: +3 Edema (chronic changes) - Labs and Meds CBC 02/15/17 Range/Units 04:25 WBC 4.4 L (4.5-11.0) K/mm3 RBC 3.56 L (3.65-5.03) M/mm3 Hgb 9.2 L (11.8-15.2) gm/dl Hct 29.6 L (35.5-45.6) % Plt Count 112 L (140-440) K/mm3 Lymph # 0.5 L (1.2-5.4) K/mm3 [place] # 0.4 (0.0-0.8) K/mm3 Eos # 0.0 (0.0-0.4) K/mm3 Baso # 0.0 (0.0-0.1) K/mm3 Comprehensive Metabolic Panel 02/15/17 Range/Units 04:25 Sodium 133 L (137-145) mmol/L Potassium 4.4 (3.6-5.0) mmol/L Chloride 92.3 L (98-107) mmol/L Carbon Dioxide 27 (22-30) mmol/L BUN 34 H (9-20) mg/dL Creatinine 6.1 H (0.8-1.5) mg/dL Glucose 75 (75-100) mg/dL Calcium 8.8 (8.4-10.2) mg/dL - Imaging and Cardiology EKG: report reviewed (NSR -no acute st t wave changes) Echo: report reviewed (01/2017: EF 20-25%, diastolic dysfunction, mild-moderate MR) - Telemetry EKG Rhythm: Sinus Rhythm - EKG Sinus rhythms and dysrhythmias: sinus rhythm Chamber hypertrophy or enlargement: left ventricular hypertro Repolarization changes or abnormalities: repolarization abn secondary to ventricular hypertrophy
--- NOTE | 2017-02-15 11:10 | Progress Note ---
Assessment and Plan Assessment and plan: 1. Atypical chest pain. Patient with no acute EKG changes and stress MPI 2015 with no ischemia 2. Elevated troponin. Etiology likely due to ESRD. Cardiology following. 3. Acute on chronic systolic heart failure Echo 12/2015: EF 20-25%, impaired relaxation dialysis per nephrology for volume control. continue coreg/isordil/hydralazine no ACEI/ARB due to allergy Repeat echocardiogram revealed left ventricular size mild to moderately dilated EF measured at 20-25% Mild to moderate mitral regurgitation and mild pulmonary hypertension. 4. Hyperkalemia. Continue hemodialysis per nephrology. Follow BMP. 5. Chronic respiratory failure. Continue O2 supplementation 6. Anemia. Etiology likely secondary to anemia of chronic disease. Check Hemoccult stools. 7. Nonischemic cardiomyopathy stress MPI 12/2015: no ischemia normal coronaires on cath at [place] in the past per pt. report. outpatient f/u for consideration of ICD 8. Hypertension. Resume antihypertensive medications 9. Sleep apnea 10. End-stage renal disease on HD. Continue per nephrology. 11. HIV disease. Consider ID consultation. History Interval history: The patient is a 36 year old male with a history of chronic systolic heart failure, non-ischemic cardiomyopathy, chronic respiratory failure on home O2, ESRD on HD, HIV who presented with left sided chest pain, shortness of breath and "swelling all over" for the past several days. No new issues overnight. Hospitalist Physical - Constitutional Vitals: Temp Pulse Resp BP Pulse Ox 98.0 F 106 H 20 140/81 95 02/15/17 07:30 02/15/17 08:55 02/15/17 08:55 02/15/17 07:30 02/15/17 08:53 General appearance: Present: no acute distress, well-nourished - EENT Eyes: Present: PERRL, EOM intact ENT: hearing intact, clear oral mucosa, dentition normal - Neck Neck: Present: supple, normal ROM - Respiratory Respiratory effort: normal Respiratory: bilateral: CTA - Cardiovascular Rhythm: regular Heart Sounds: Present: S1 & S2. Absent: gallop, rub - Extremities Extremities: no ischemia, Full ROM Extremity abnormal: edema (1-2+) - Abdominal General gastrointestinal: soft, non-tender, non-distended, normal bowel sounds - Integumentary Integumentary: Present: clear, warm, dry - Neurologic Neurologic: CNII-XII intact, moves all extremities Results - Labs CBC & Chem 7: 02/15/17 04:25 02/15/17 04:25 Labs: Laboratory Last Values WBC 4.4 K/mm3 (4.5-11.0) L 02/15/17 04:25 RBC 3.56 M/mm3 (3.65-5.03) L 02/15/17 04:25 Hgb 9.2 gm/dl (11.8-15.2) L 02/15/17 04:25 Hct 29.6 % (35.5-45.6) L 02/15/17 04:25 MCV 83 fl (84-94) L 02/15/17 04:25 MCH 26 pg (28-32) L 02/15/17 04:25 MCHC 31 % (32-34) L 02/15/17 04:25 RDW 22.7 % (13.2-15.2) H 02/15/17 04:25 Plt Count 112 K/mm3 (140-440) L 02/15/17 04:25 Lymph % (Auto) 12.2 % (13.4-35.0) L 02/15/17 04:25 [place] % (Auto) 10.1 % (0.0-7.3) H 02/15/17 04:25 Eos % (Auto) 0.4 % (0.0-4.3) 02/15/17 04:25 Baso % (Auto) 0.3 % (0.0-1.8) 02/15/17 04:25 Lymph # 0.5 K/mm3 (1.2-5.4) L 02/15/17 04:25 [place] # 0.4 K/mm3 (0.0-0.8) 02/15/17 04:25 Eos # 0.0 K/mm3 (0.0-0.4) 02/15/17 04:25 Baso # 0.0 K/mm3 (0.0-0.1) 02/15/17 04:25 Seg Neutrophils % 77.0 % (40.0-70.0) H 02/15/17 04:25 Seg Neutrophils # 3.4 K/mm3 (1.8-7.7) 02/15/17 04:25 PT 16.0 Sec. (12.2-14.9) H 02/11/17 14:07 INR 1.29 (0.87-1.13) H 02/11/17 14:07 APTT 37.1 Sec. (24.2-36.6) H 02/11/17 14:07 Sodium 133 mmol/L (137-145) L 02/15/17 04:25 Potassium 4.4 mmol/L (3.6-5.0) 02/15/17 04:25 Chloride 92.3 mmol/L (98-107) L 02/15/17 04:25 Carbon Dioxide 27 mmol/L (22-30) 02/15/17 04:25 Anion Gap 18 mmol/L 02/15/17 04:25 BUN 34 mg/dL (9-20) H 02/15/17 04:25 Creatinine 6.1 mg/dL (0.8-1.5) H 02/15/17 04:25 Estimated GFR 13 ml/min 02/15/17 04:25 BUN/Creatinine Ratio 5.57 % 02/15/17 04:25 Glucose 75 mg/dL (75-100) 02/15/17 04:25 Calcium 8.8 mg/dL (8.4-10.2) 02/15/17 04:25 Phosphorus 4.0 mg/dL (2.5-4.5) 02/15/17 04:25 Total Bilirubin 0.6 mg/dL (0.1-1.2) 02/12/17 04:50 AST 18 units/L (5-40) 02/12/17 04:50 ALT 12 units/L (7-56) 02/12/17 04:50 Alkaline Phosphatase 314 units/L (35-129) H 02/12/17 04:50 Total Creatine Kinase 37 units/L (55-170) L 02/12/17 04:50 CK-MB (CK-2) 3.0 ng/mL (0.0-4.0) 02/12/17 04:50 CK-MB (CK-2) Rel Index 8.1 (0-4) H 02/12/17 04:50 Troponin T 0.039 ng/mL (0.00-0.029) H 02/12/17 04:50 NT-Pro-B Natriuret Pep 66414 pg/mL (0-450) H 02/11/17 13:36 Total Protein 7.9 g/dL (6.3-8.2) 02/12/17 04:50 Albumin 3.1 g/dL (3.9-5) L 02/12/17 04:50 Albumin/Globulin Ratio 0.6 % 02/12/17 04:50 Triglycerides 64 mg/dL (2-149) 02/11/17 13:36 Cholesterol 101 mg/dL (50-199) 02/11/17 13:36 LDL Cholesterol Direct 50 mg/dL (50-130) 02/11/17 13:36 HDL Cholesterol 39 mg/dL (40-59) L 02/11/17 13:36 Cholesterol/HDL Ratio 2.58 % 02/11/17 13:36
[2017-02-15] MEDS: PROTONIX PO SCH (11:32)
[2017-02-15] MEDS: COREG PO SCH ×2 (11:32→22:02)
[2017-02-15] MEDS: ZIAGEN PO SCH (11:33)
[2017-02-15] MEDS: EPIVIR PO SCH (11:33)
[2017-02-15] MEDS: NORVIR PO SCH (11:33)
[2017-02-15] MEDS: DAPSONE PO SCH ×2 (11:34→22:02)
[2017-02-15] MEDS: PREZISTA PO SCH (11:34)
[2017-02-15] MEDS: NEURONTIN PO SCH ×2 (11:35→22:02)
--- NOTE | 2017-02-15 14:27 | Progress Note ---
Assessment and Plan (1) ESRD (end stage renal disease) on dialysis Current Visit: No Status: Chronic Plan to address problem: no indication for HD today Fluid restriction of 1000 ml per day Obtain daily weights Renally dose medications Monitor I/O's Assess dialysis needs daily (2) HTN (hypertension) Current Visit: No Status: Chronic Qualifiers: Hypertension type: essential hypertension Qualified Code(s): I10 - Essential (primary) hypertension Plan to address problem: cont current regimen (3) HIV positive Current Visit: Yes Status: Chronic Plan to address problem: On anti-retrovirals (4) Chest pain Current Visit: No Status: Acute Qualifiers: Chest pain type: unspecified Qualified Code(s): R07.9 - Chest pain, unspecified Plan to address problem: As per Cardiology, stress test tomorrow Subjective Date of service: 02/15/17 Principal diagnosis: acute on chronic systolic heart failure Interval history: tolerated HD well yesterday Objective - Vital Signs Vital signs: Vital Signs - 12hr 02/15/17 02/15/17 02/15/17 05:21 07:30 08:30 Temperature 97.8 F 98.0 F Pulse Rate [ 102 H Anterior Bilateral Throughout] Pulse Rate [ 104 H 104 H Right] Respiratory 20 22 Rate Respiratory 20 Rate [Anterior Bilateral Throughout] Blood Pressure 139/74 140/81 [Right Arm] O2 Sat by Pulse 97 100 Oximetry 02/15/17 02/15/17 02/15/17 08:53 08:55 13:25 Temperature 97.8 F Pulse Rate [ 106 H Anterior Bilateral Throughout] Pulse Rate [ 106 H Right] Respiratory 18 Rate Respiratory 20 Rate [Anterior Bilateral Throughout] Blood Pressure 142/81 [Right Arm] O2 Sat by Pulse 95 96 Oximetry - General Appearance General appearance: well-developed, well-nourished, obese EENT: ATNC, PERRL, mucous membranes moist Neck: no JVD, no carotid bruit Respiratory: Present: Decreased Breath Sounds Cardiology: regular, S1S2 Gastrointestinal: normoactive bowel sounds, no tenderness, no distended, no masses, obese Integumentary: no rash, warm and dry Neurologic: no focal deficit, no asterixis, alert and oriented x3 Musculoskeletal: other (trace pitting edema in BLE) Psychiatric: mood/affect appropriate, cooperative - Lab 02/15/17 04:25 02/15/17 04:25 Most recent lab results Calcium 8.8 mg/dL (8.4-10.2) 02/15/17 04:25 Phosphorus 4.0 mg/dL (2.5-4.5) 02/15/17 04:25
[2017-02-15] MEDS: APRESOLINE PO SCH ×3 (16:46→22:02)
[2017-02-15] MEDS: BENADRYL PO PRN (20:49)
[2017-02-15] MEDS: MILK OF MAGNESIA PO PRN (22:04)
[2017-02-16] MEDS: MORPHINE IV PRN ×4 (01:30→22:08)
[2017-02-16] MEDS: DUONEB 0.5 MG-3 MG/3 ML SOLN IH SCH ×5 (01:55→20:29)
[2017-02-16 05:45] LABS: Basophils % (Auto) 0.5 % (0.0-1.8); Eosinophils % (Auto) 0.9 % (0.0-4.3); Hematocrit 29.7 % (35.5-45.6); Hemoglobin 9.1 gm/dl (11.8-15.2); Mean Corpuscular HGB Conc 31 % (32-34); Mean Corpuscular Volume 84 fl (84-94); Platelet Count 117 K/mm3 (140-440); Red Blood Count 3.54 M/mm3 (3.65-5.03); White Blood Count 4.6 K/mm3 (4.5-11.0)
[2017-02-16 05:48] LABS: Mean Corpuscular Hemoglobin 26 pg (28-32); Red Cell Distribution Width 22.7 % (13.2-15.2)
[2017-02-16 05:51] LABS: BUN/Creatinine Ratio 5.83; Calcium 8.6 mg/dL (8.4-10.2); Chloride 91.5 mmol/L (98-107); Phosphorous 4.2 mg/dL (2.5-4.5); Potassium 4.4 mmol/L (3.6-5.0)
[2017-02-16] MEDS: ISORDIL TITRADOSE PO SCH ×3 (06:05→22:11)
[2017-02-16] MEDS: PULMICORT IH SCH ×2 (08:38→20:29)
[2017-02-16] MEDS: BROVANA NEBU IH SCH ×2 (08:38→20:29)
[2017-02-16] MEDS: BENADRYL PO PRN ×2 (09:49→22:10)
[2017-02-16] MEDS: PHOSLO PO SCH ×3 (09:54→18:25)
[2017-02-16] MEDS: APRESOLINE PO SCH ×3 (09:54→22:11)
--- NOTE | 2017-02-16 09:59 | Progress Note ---
Assessment and Plan (1) ESRD (end stage renal disease) on dialysis Current Visit: No Status: Chronic Plan to address problem: HD today for clearance and volume removal Fluid restriction of 1000 ml per day Obtain daily weights Renally dose medications Monitor I/O's Assess dialysis needs daily Ok to be discharged from renal standpoint post HD (2) HTN (hypertension) Current Visit: No Status: Chronic Qualifiers: Hypertension type: essential hypertension Qualified Code(s): I10 - Essential (primary) hypertension Plan to address problem: cont current regimen (3) HIV positive Current Visit: Yes Status: Chronic Plan to address problem: On anti-retrovirals (4) Chest pain Current Visit: No Status: Acute Qualifiers: Chest pain type: unspecified Qualified Code(s): R07.9 - Chest pain, unspecified Plan to address problem: As per Cardiology Subjective Date of service: 02/16/17 Principal diagnosis: acute on chronic systolic heart failure Interval history: seen in dialysis, tolerating Objective - Vital Signs Vital signs: Vital Signs - 12hr 02/16/17 02/16/17 02/16/17 00:58 02:37 02:47 Temperature 98.9 F Pulse Rate 108 H Pulse Rate [ 102 H Anterior Bilateral Throughout] Pulse Rate [ 96 H Right] Respiratory 20 24 Rate Respiratory 18 Rate [Anterior Bilateral Throughout] Blood Pressure 131/73 [Right Arm] O2 Sat by Pulse 94 95 Oximetry 02/16/17 02/16/17 02/16/17 05:47 07:41 08:44 Temperature 98.7 F 98.7 F Pulse Rate Pulse Rate [ 103 H Anterior Bilateral Throughout] Pulse Rate [ 106 H 110 H Right] Respiratory 22 22 Rate Respiratory 18 Rate [Anterior Bilateral Throughout] Blood Pressure 136/77 142/75 [Right Arm] O2 Sat by Pulse 97 95 Oximetry 02/16/17 02/16/17 08:45 09:07 Temperature Pulse Rate Pulse Rate [ 103 H Anterior Bilateral Throughout] Pulse Rate [ Right] Respiratory Rate Respiratory 18 Rate [Anterior Bilateral Throughout] Blood Pressure [Right Arm] O2 Sat by Pulse 97 Oximetry - General Appearance General appearance: well-developed, well-nourished, obese EENT: ATNC, PERRL, mucous membranes moist Neck: no JVD, no carotid bruit Respiratory: Present: Decreased Breath Sounds Cardiology: regular, S1S2 Gastrointestinal: normoactive bowel sounds, no tenderness, no distended, obese Integumentary: no rash, warm and dry Neurologic: no focal deficit, no asterixis, alert and oriented x3 Musculoskeletal: other (trace pitting edema in BLE) Psychiatric: mood/affect appropriate, cooperative - Lab 02/16/17 05:01 02/16/17 05:01 Most recent lab results Calcium 8.6 mg/dL (8.4-10.2) 02/16/17 05:01 Phosphorus 4.2 mg/dL (2.5-4.5) 02/16/17 05:01
--- NOTE | 2017-02-16 11:29 | Progress Note ---
Assessment and Plan Atypical chest pain no acute EKG changes stress MPI 12/2015: no ischemia NStemi type 2 -->likely due to ESRD minimally elevated but flat Acute on chronic systolic heart failure Echo 01/2017: EF 20-25%, diastolic dysfunction, mild-moderate MR dialysis per nephrology in discussion will due daily dialysis consider diuretic if okay with nephrology continue coreg/isordil/hydralazine no ACEI/ARB due to allergy Hyperkalemia per nephrology Chronic respiratory failure continue O2 supplementation Anemia Likely secondary to anemia of chronic disease Nonischemic cardiomyopathy stress MPI 12/2015: no ischemia normal [facility] on cath at [place] in the past per pt. report. outpatient f/u for consideration of ICD Hypertension Sleep apnea End-stage renal disease on HD HIV disease Subjective Date of service: 02/16/17 Principal diagnosis: acute on chronic systolic heart failure Interval history: pt has swelling in scotal area. Objective Vital Signs Temp Pulse Pulse Pulse Resp Resp BP 02/16/17 10:10 105 H 160/87 02/16/17 10:05 97.5 F L 105 H 20 160/87 02/16/17 09:07 103 H 18 02/16/17 08:45 02/16/17 08:44 103 H 18 02/16/17 07:41 98.7 F 110 H 22 02/16/17 05:47 98.7 F 106 H 22 02/16/17 02:47 108 H 24 02/16/17 02:37 102 H 18 02/16/17 00:58 98.9 F 96 H 20 02/15/17 21:04 97.7 F 94 H 20 02/15/17 19:58 02/15/17 17:20 98.0 F 95 H 22 02/15/17 16:46 22 02/15/17 13:25 97.8 F 106 H 18 02/15/17 12:00 98 H BP Pulse Ox 02/16/17 10:10 02/16/17 10:05 02/16/17 09:07 02/16/17 08:45 97 02/16/17 08:44 02/16/17 07:41 142/75 95 02/16/17 05:47 136/77 97 02/16/17 02:47 95 02/16/17 02:37 02/16/17 00:58 131/73 94 02/15/17 21:04 128/72 98 02/15/17 19:58 94 02/15/17 17:20 126/61 93 02/15/17 16:46 02/15/17 13:25 142/81 96 02/15/17 12:00 - Physical Examination General: No Apparent Distress HEENT: Positive: PERRL, Normocephaly, Mucus Membranes Moist Neck: Positive: neck supple, trachea midline Cardiac: Positive: Reg Rate and Rhythm Lungs: Positive: clear to auscultation Neuro: Positive: Grossly Intact Abdomen: Positive: Soft, Distended Skin: Positive: Clear. Negative: Rash Extremities: Present: +3 Edema (chronic changes) - Labs and Meds CBC 02/16/17 Range/Units 05:01 WBC 4.6 (4.5-11.0) K/mm3 RBC 3.54 L (3.65-5.03) M/mm3 Hgb 9.1 L (11.8-15.2) gm/dl Hct 29.7 L (35.5-45.6) % Plt Count 117 L (140-440) K/mm3 Lymph # 0.6 L (1.2-5.4) K/mm3 [place] # 0.4 (0.0-0.8) K/mm3 Eos # 0.0 (0.0-0.4) K/mm3 Baso # 0.0 (0.0-0.1) K/mm3 Comprehensive Metabolic Panel 02/16/17 Range/Units 05:01 Sodium 131 L (137-145) mmol/L Potassium 4.4 (3.6-5.0) mmol/L Chloride 91.5 L (98-107) mmol/L Carbon Dioxide 24 (22-30) mmol/L BUN 42 H (9-20) mg/dL Creatinine 7.2 H (0.8-1.5) mg/dL Glucose 98 (75-100) mg/dL Calcium 8.6 (8.4-10.2) mg/dL - Imaging and Cardiology EKG: report reviewed (NSR -no acute st t wave changes) Echo: report reviewed (01/2017: EF 20-25%, diastolic dysfunction, mild-moderate MR) - Telemetry EKG Rhythm: Sinus Tachycardia - EKG Sinus rhythms and dysrhythmias: sinus rhythm Chamber hypertrophy or enlargement: left ventricular hypertro Repolarization changes or abnormalities: repolarization abn secondary to ventricular hypertrophy
--- NOTE | 2017-02-16 11:33 | Progress Note ---
Assessment and Plan Assessment and plan: 1. Atypical chest pain. Patient with no acute EKG changes and stress MPI 2015 with no ischemia. Patient scheduled for stress thallium this morning. 2. Elevated troponin. Etiology likely due to ESRD. Cardiology following. 3. Acute on chronic systolic heart failure Echo 12/2015: EF 20-25%, impaired relaxation dialysis per nephrology for volume control. continue coreg/isordil/hydralazine no ACEI/ARB due to allergy Repeat echocardiogram revealed left ventricular size mild to moderately dilated EF measured at 20-25% Mild to moderate mitral regurgitation and mild pulmonary hypertension. 4. Hyperkalemia. Continue hemodialysis per nephrology. Follow BMP. 5. Chronic respiratory failure. Continue O2 supplementation 6. Anemia. Etiology likely secondary to anemia of chronic disease. Check Hemoccult stools. 7. Nonischemic cardiomyopathy stress MPI 12/2015: no ischemia normal [facility] on cath at [place] in the past per pt. report. outpatient f/u for consideration of ICD 8. Hypertension. Resume antihypertensive medications 9. Sleep apnea 10. End-stage renal disease on HD. Continue per nephrology. 11. HIV disease. Consider ID consultation. History Interval history: The patient is a 36 year old male with a history of chronic systolic heart failure, non-ischemic cardiomyopathy, chronic respiratory failure on home O2, ESRD on HD, HIV who presented with left sided chest pain, shortness of breath and "swelling all over" for the past several days. No new issues overnight. Hospitalist Physical - Constitutional Vitals: Temp Pulse Resp BP Pulse Ox 97.5 F L 105 H 20 160/87 97 02/16/17 10:05 02/16/17 10:10 02/16/17 10:05 02/16/17 10:10 02/16/17 08:45 General appearance: Present: no acute distress, well-nourished - EENT Eyes: Present: PERRL, EOM intact ENT: hearing intact, clear oral mucosa, dentition normal - Neck Neck: Present: supple, normal ROM - Respiratory Respiratory effort: normal Respiratory: bilateral: CTA - Cardiovascular Rhythm: regular Heart Sounds: Present: S1 & S2. Absent: gallop, rub - Extremities Extremities: no ischemia, No edema, Full ROM - Abdominal General gastrointestinal: soft, non-tender, non-distended, normal bowel sounds - Integumentary Integumentary: Present: clear, warm, dry - Neurologic Neurologic: CNII-XII intact, moves all extremities Results - Labs CBC & Chem 7: 02/16/17 05:01 02/16/17 05:01 Labs: Laboratory Last Values WBC 4.6 K/mm3 (4.5-11.0) 02/16/17 05:01 RBC 3.54 M/mm3 (3.65-5.03) L 02/16/17 05:01 Hgb 9.1 gm/dl (11.8-15.2) L 02/16/17 05:01 Hct 29.7 % (35.5-45.6) L 02/16/17 05:01 MCV 84 fl (84-94) 02/16/17 05:01 MCH 26 pg (28-32) L 02/16/17 05:01 MCHC 31 % (32-34) L 02/16/17 05:01 RDW 22.7 % (13.2-15.2) H 02/16/17 05:01 Plt Count 117 K/mm3 (140-440) L 02/16/17 05:01 Lymph % (Auto) 12.5 % (13.4-35.0) L 02/16/17 05:01 [place] % (Auto) 8.6 % (0.0-7.3) H 02/16/17 05:01 Eos % (Auto) 0.9 % (0.0-4.3) 02/16/17 05:01 Baso % (Auto) 0.5 % (0.0-1.8) 02/16/17 05:01 Lymph # 0.6 K/mm3 (1.2-5.4) L 02/16/17 05:01 [place] # 0.4 K/mm3 (0.0-0.8) 02/16/17 05:01 Eos # 0.0 K/mm3 (0.0-0.4) 02/16/17 05:01 Baso # 0.0 K/mm3 (0.0-0.1) 02/16/17 05:01 Seg Neutrophils % 77.5 % (40.0-70.0) H 02/16/17 05:01 Seg Neutrophils # 3.6 K/mm3 (1.8-7.7) 02/16/17 05:01 PT 16.0 Sec. (12.2-14.9) H 02/11/17 14:07 INR 1.29 (0.87-1.13) H 02/11/17 14:07 APTT 37.1 Sec. (24.2-36.6) H 02/11/17 14:07 Sodium 131 mmol/L (137-145) L 02/16/17 05:01 Potassium 4.4 mmol/L (3.6-5.0) 02/16/17 05:01 Chloride 91.5 mmol/L (98-107) L 02/16/17 05:01 Carbon Dioxide 24 mmol/L (22-30) 02/16/17 05:01 Anion Gap 20 mmol/L 02/16/17 05:01 BUN 42 mg/dL (9-20) H 02/16/17 05:01 Creatinine 7.2 mg/dL (0.8-1.5) H 02/16/17 05:01 Estimated GFR 10 ml/min 02/16/17 05:01 BUN/Creatinine Ratio 5.83 % 02/16/17 05:01 Glucose 98 mg/dL (75-100) 02/16/17 05:01 Calcium 8.6 mg/dL (8.4-10.2) 02/16/17 05:01 Phosphorus 4.2 mg/dL (2.5-4.5) 02/16/17 05:01 Total Bilirubin 0.6 mg/dL (0.1-1.2) 02/12/17 04:50 AST 18 units/L (5-40) 02/12/17 04:50 ALT 12 units/L (7-56) 02/12/17 04:50 Alkaline Phosphatase 314 units/L (35-129) H 02/12/17 04:50 Total Creatine Kinase 37 units/L (55-170) L 02/12/17 04:50 CK-MB (CK-2) 3.0 ng/mL (0.0-4.0) 02/12/17 04:50 CK-MB (CK-2) Rel Index 8.1 (0-4) H 02/12/17 04:50 Troponin T 0.039 ng/mL (0.00-0.029) H 02/12/17 04:50 NT-Pro-B Natriuret Pep 25031 pg/mL (0-450) H 02/11/17 13:36 Total Protein 7.9 g/dL (6.3-8.2) 02/12/17 04:50 Albumin 3.1 g/dL (3.9-5) L 02/12/17 04:50 Albumin/Globulin Ratio 0.6 % 02/12/17 04:50 Triglycerides 64 mg/dL (2-149) 02/11/17 13:36 Cholesterol 101 mg/dL (50-199) 02/11/17 13:36 LDL Cholesterol Direct 50 mg/dL (50-130) 02/11/17 13:36 HDL Cholesterol 39 mg/dL (40-59) L 02/11/17 13:36 Cholesterol/HDL Ratio 2.58 % 02/11/17 13:36
[2017-02-16] MEDS ORDERED: NACL 0.9 (PRIMING MACHINE ONLY DIALYSIS) MC ONE (11:53)
[2017-02-16] MEDS: PREZISTA PO SCH (15:08)
[2017-02-16] MEDS: NORVIR PO SCH (15:09)
[2017-02-16] MEDS: ZIAGEN PO SCH (15:10)
[2017-02-16] MEDS: EPIVIR PO SCH (15:20)
[2017-02-16] MEDS: PROTONIX PO SCH (15:20)
[2017-02-16] MEDS: DAPSONE PO SCH ×2 (15:20→22:10)
[2017-02-16] MEDS: NEURONTIN PO SCH ×2 (15:21→22:11)
[2017-02-16] MEDS: COREG PO SCH (22:10)
[2017-02-17] MEDS: DUONEB 0.5 MG-3 MG/3 ML SOLN IH SCH ×4 (01:09→20:28)
[2017-02-17] MEDS: MORPHINE IV PRN ×4 (05:00→20:01)
[2017-02-17] MEDS: ISORDIL TITRADOSE PO SCH ×3 (05:41→21:45)
[2017-02-17] MEDS: BENADRYL PO PRN ×3 (05:41→20:06)
[2017-02-17 06:12] LABS: Basophils % (Auto) 0.2 % (0.0-1.8); Eosinophils % (Auto) 0.6 % (0.0-4.3); Hematocrit 28.6 % (35.5-45.6); Hemoglobin 8.9 gm/dl (11.8-15.2); Mean Corpuscular HGB Conc 31 % (32-34); Mean Corpuscular Volume 83 fl (84-94); Platelet Count 104 K/mm3 (140-440); Red Blood Count 3.45 M/mm3 (3.65-5.03); White Blood Count 4.1 K/mm3 (4.5-11.0)
[2017-02-17 06:16] LABS: Calcium 8.4 mg/dL (8.4-10.2); Chloride 92.8 mmol/L (98-107); Phosphorous 3.8 mg/dL (2.5-4.5); Potassium 4.9 mmol/L (3.6-5.0)
[2017-02-17 06:18] LABS: Mean Corpuscular Hemoglobin 26 pg (28-32); Red Cell Distribution Width 23.4 % (13.2-15.2)
[2017-02-17] MEDS: PULMICORT IH SCH ×2 (07:49→20:28)
[2017-02-17] MEDS: BROVANA NEBU IH SCH ×2 (07:49→20:28)
--- NOTE | 2017-02-17 08:56 | Progress Note ---
Assessment and Plan (1) ESRD (end stage renal disease) on dialysis Current Visit: No Status: Chronic Plan to address problem: will plan to HD daily for the next few days due to severe volume overload Fluid restriction of 1000 ml per day Obtain daily weights Renally dose medications Monitor I/O's Assess dialysis needs daily (2) HTN (hypertension) Current Visit: No Status: Chronic Qualifiers: Hypertension type: essential hypertension Qualified Code(s): I10 - Essential (primary) hypertension Plan to address problem: cont current regimen (3) HIV positive Current Visit: Yes Status: Chronic Plan to address problem: On anti-retrovirals (4) Chest pain Current Visit: No Status: Acute Qualifiers: Chest pain type: unspecified Qualified Code(s): R07.9 - Chest pain, unspecified Plan to address problem: As per Cardiology Subjective Date of service: 02/17/17 Principal diagnosis: acute on chronic systolic heart failure Interval history: tolerated HD well yesterday, c/o swelling in legs and groin Objective - Vital Signs Vital signs: Vital Signs - 12hr 02/16/17 02/16/17 02/16/17 21:14 22:08 22:10 Temperature 97.7 F Pulse Rate 97 H Pulse Rate [ Anterior Bilateral Throughout] Pulse Rate [ 97 H Right] Respiratory 20 22 Rate Respiratory Rate [Anterior Bilateral Throughout] Blood Pressure 152/83 Blood Pressure 152/83 [Right Arm] O2 Sat by Pulse 100 Oximetry 02/16/17 02/17/17 02/17/17 22:11 00:46 01:12 Temperature 98.4 F Pulse Rate 97 H Pulse Rate [ 100 H Anterior Bilateral Throughout] Pulse Rate [ 98 H Right] Respiratory 22 Rate Respiratory 21 Rate [Anterior Bilateral Throughout] Blood Pressure 152/83 Blood Pressure 121/69 [Right Arm] O2 Sat by Pulse 99 Oximetry 02/17/17 02/17/17 02/17/17 01:28 01:48 02:01 Temperature Pulse Rate 97 H Pulse Rate [ 94 H Anterior Bilateral Throughout] Pulse Rate [ Right] Respiratory 20 Rate Respiratory 22 Rate [Anterior Bilateral Throughout] Blood Pressure Blood Pressure [Right Arm] O2 Sat by Pulse 97 Oximetry 02/17/17 02/17/17 02/17/17 05:00 05:41 05:42 Temperature 98.6 F Pulse Rate 97 H Pulse Rate [ Anterior Bilateral Throughout] Pulse Rate [ 90 Right] Respiratory 22 22 Rate Respiratory Rate [Anterior Bilateral Throughout] Blood Pressure 173/61 Blood Pressure 128/68 [Right Arm] O2 Sat by Pulse 100 Oximetry 02/17/17 02/17/17 02/17/17 07:29 07:49 08:02 Temperature 97.8 F Pulse Rate Pulse Rate [ 94 H 92 H Anterior Bilateral Throughout] Pulse Rate [ 94 H Right] Respiratory 20 Rate Respiratory 20 20 Rate [Anterior Bilateral Throughout] Blood Pressure Blood Pressure 133/71 [Right Arm] O2 Sat by Pulse 93 94 Oximetry - General Appearance General appearance: well-developed, well-nourished, obese EENT: ATNC, PERRL, mucous membranes moist Neck: no JVD, no carotid bruit Respiratory: Present: Clear to Ascultation. Absent: Rales, Ronchi Cardiology: regular, S1S2 Gastrointestinal: normoactive bowel sounds, no tenderness, no distended, obese Integumentary: no rash, warm and dry Neurologic: no focal deficit, no asterixis, alert and oriented x3 Musculoskeletal: other (Anasarca) Psychiatric: mood/affect appropriate, cooperative - Lab 02/17/17 04:09 02/17/17 04:09 Most recent lab results Calcium 8.4 mg/dL (8.4-10.2) 02/17/17 04:09 Phosphorus 3.8 mg/dL (2.5-4.5) 02/17/17 04:09
--- NOTE | 2017-02-17 10:26 | Progress Note ---
Assessment and Plan Assessment and plan: 1. Atypical chest pain. Patient with no acute EKG changes and stress MPI 2015 with no ischemia. Patient was previously scheduled for stress thallium. We will discuss with cardiology whether this is still an option. 2. Elevated troponin. Etiology likely due to ESRD. Cardiology following. 3. Acute on chronic systolic heart failure Echo 12/2015: EF 20-25%, impaired relaxation HD per nephrology for volume control. Nephrology would like to continue daily dialysis for the next 2-3 days. continue coreg/isordil/hydralazine no ACEI/ARB due to allergy Repeat echocardiogram revealed left ventricular size mild to moderately dilated EF measured at 20-25% Mild to moderate mitral regurgitation and mild pulmonary hypertension. 4. Hyperkalemia. Continue hemodialysis per nephrology. Follow BMP. 5. Chronic respiratory failure. Continue O2 supplementation 6. Anemia. Etiology likely secondary to anemia of chronic disease. Check Hemoccult stools. 7. Nonischemic cardiomyopathy stress MPI 12/2015: no ischemia normal coron[facility] on cath at [place] in the past per pt. report. outpatient f/u for consideration of ICD 8. Hypertension. Resume antihypertensive medications 9. Sleep apnea 10. End-stage renal disease on HD. Continue per nephrology. 11. HIV disease. Consider ID consultation. History Interval history: The patient is a 36 year old male with a history of chronic systolic heart failure, non-ischemic cardiomyopathy, chronic respiratory failure on home O2, ESRD on HD, HIV who presented with left sided chest pain, shortness of breath and "swelling all over" for the past several days. No new issues overnight. Patient still complains of scrotal and lower extremity edema. Hospitalist Physical - Constitutional Vitals: Temp Pulse Resp BP Pulse Ox 97.8 F 92 H 20 133/71 94 02/17/17 07:29 02/17/17 08:02 02/17/17 08:02 02/17/17 07:29 02/17/17 07:49 General appearance: Present: no acute distress, well-nourished - EENT Eyes: Present: PERRL, EOM intact ENT: hearing intact, clear oral mucosa, dentition normal - Neck Neck: Present: supple, normal ROM - Respiratory Respiratory effort: normal Respiratory: bilateral: CTA - Cardiovascular Rhythm: regular Heart Sounds: Present: S1 & S2. Absent: gallop, rub - Extremities Extremities: no ischemia, No edema, Full ROM - Abdominal General gastrointestinal: soft, non-tender, non-distended, normal bowel sounds - Integumentary Integumentary: Present: clear, warm, dry - Neurologic Neurologic: CNII-XII intact, moves all extremities Results - Labs CBC & Chem 7: 02/17/17 04:09 02/17/17 04:09 Labs: Laboratory Last Values WBC 4.1 K/mm3 (4.5-11.0) L 02/17/17 04:09 RBC 3.45 M/mm3 (3.65-5.03) L 02/17/17 04:09 Hgb 8.9 gm/dl (11.8-15.2) L 02/17/17 04:09 Hct 28.6 % (35.5-45.6) L 02/17/17 04:09 MCV 83 fl (84-94) L 02/17/17 04:09 MCH 26 pg (28-32) L 02/17/17 04:09 MCHC 31 % (32-34) L 02/17/17 04:09 RDW 23.4 % (13.2-15.2) H 02/17/17 04:09 Plt Count 104 K/mm3 (140-440) L 02/17/17 04:09 Lymph % (Auto) 10.5 % (13.4-35.0) L 02/17/17 04:09 [place] % (Auto) 8.8 % (0.0-7.3) H 02/17/17 04:09 Eos % (Auto) 0.6 % (0.0-4.3) 02/17/17 04:09 Baso % (Auto) 0.2 % (0.0-1.8) 02/17/17 04:09 Lymph # 0.4 K/mm3 (1.2-5.4) L 02/17/17 04:09 [place] # 0.4 K/mm3 (0.0-0.8) 02/17/17 04:09 Eos # 0.0 K/mm3 (0.0-0.4) 02/17/17 04:09 Baso # 0.0 K/mm3 (0.0-0.1) 02/17/17 04:09 Seg Neutrophils % 79.9 % (40.0-70.0) H 02/17/17 04:09 Seg Neutrophils # 3.3 K/mm3 (1.8-7.7) 02/17/17 04:09 PT 16.0 Sec. (12.2-14.9) H 02/11/17 14:07 INR 1.29 (0.87-1.13) H 02/11/17 14:07 APTT 37.1 Sec. (24.2-36.6) H 02/11/17 14:07 Sodium 133 mmol/L (137-145) L 02/17/17 04:09 Potassium 4.9 mmol/L (3.6-5.0) 02/17/17 04:09 Chloride 92.8 mmol/L (98-107) L 02/17/17 04:09 Carbon Dioxide 26 mmol/L (22-30) 02/17/17 04:09 Anion Gap 19 mmol/L 02/17/17 04:09 BUN 31 mg/dL (9-20) H 02/17/17 04:09 Creatinine 6.2 mg/dL (0.8-1.5) H 02/17/17 04:09 Estimated GFR 12 ml/min 02/17/17 04:09 BUN/Creatinine Ratio 5.00 % 02/17/17 04:09 Glucose 88 mg/dL (75-100) 02/17/17 04:09 Calcium 8.4 mg/dL (8.4-10.2) 02/17/17 04:09 Phosphorus 3.8 mg/dL (2.5-4.5) 02/17/17 04:09 Total Bilirubin 0.6 mg/dL (0.1-1.2) 02/12/17 04:50 AST 18 units/L (5-40) 02/12/17 04:50 ALT 12 units/L (7-56) 02/12/17 04:50 Alkaline Phosphatase 314 units/L (35-129) H 02/12/17 04:50 Total Creatine Kinase 37 units/L (55-170) L 02/12/17 04:50 CK-MB (CK-2) 3.0 ng/mL (0.0-4.0) 02/12/17 04:50 CK-MB (CK-2) Rel Index 8.1 (0-4) H 02/12/17 04:50 Troponin T 0.039 ng/mL (0.00-0.029) H 02/12/17 04:50 NT-Pro-B Natriuret Pep 88274 pg/mL (0-450) H 02/11/17 13:36 Total Protein 7.9 g/dL (6.3-8.2) 02/12/17 04:50 Albumin 3.1 g/dL (3.9-5) L 02/12/17 04:50 Albumin/Globulin Ratio 0.6 % 02/12/17 04:50 Triglycerides 64 mg/dL (2-149) 02/11/17 13:36 Cholesterol 101 mg/dL (50-199) 02/11/17 13:36 LDL Cholesterol Direct 50 mg/dL (50-130) 02/11/17 13:36 HDL Cholesterol 39 mg/dL (40-59) L 02/11/17 13:36 Cholesterol/HDL Ratio 2.58 % 02/11/17 13:36
[2017-02-17] MEDS: NORVIR PO SCH (10:41)
[2017-02-17] MEDS: NEURONTIN PO SCH ×2 (10:44→21:44)
[2017-02-17] MEDS: PROTONIX PO SCH (10:44)
[2017-02-17] MEDS: COREG PO SCH ×3 (10:45→21:46)
[2017-02-17] MEDS: ZIAGEN PO SCH (10:46)
[2017-02-17] MEDS: PREZISTA PO SCH (10:47)
[2017-02-17] MEDS: DAPSONE PO SCH ×2 (10:47→21:50)
[2017-02-17] MEDS: ZAROXOLYN PO SCH (10:47)
[2017-02-17] MEDS: PHOSLO PO SCH ×3 (10:48→16:24)
[2017-02-17] MEDS: EPIVIR PO SCH (10:48)
--- NOTE | 2017-02-17 11:07 | Progress Note ---
Assessment and Plan Atypical chest pain no acute EKG changes stress MPI 12/2015: no ischemia NStemi type 2 -->likely due to ESRD minimally elevated but flat Acute on chronic systolic heart failure Echo 01/2017: EF 20-25%, diastolic dysfunction, mild-moderate MR dialysis per nephrology in discussion will due daily dialysis consider diuretic if okay with nephrology continue coreg/isordil/hydralazine no ACEI/ARB due to allergy Hyperkalemia per nephrology Chronic respiratory failure continue O2 supplementation Anemia Likely secondary to anemia of chronic disease Nonischemic cardiomyopathy stress MPI 12/2015: no ischemia normal coron[facility] on cath at [place] in the past per pt. report. outpatient f/u for consideration of ICD Hypertension Sleep apnea End-stage renal disease on HD HIV disease Subjective Date of service: 02/17/17 Principal diagnosis: acute on chronic systolic heart failure Interval history: Patient sitting in the chair still has mild shortness of breath Objective Vital Signs Temp Pulse Pulse Pulse Resp Resp BP 02/17/17 10:45 82 02/17/17 08:02 92 H 20 02/17/17 07:49 94 H 20 02/17/17 07:29 97.8 F 94 H 20 02/17/17 05:42 98.6 F 90 22 02/17/17 05:41 97 H 173/61 02/17/17 05:00 22 02/17/17 02:01 97 H 02/17/17 01:48 20 02/17/17 01:28 94 H 22 02/17/17 01:12 100 H 21 02/17/17 00:46 98.4 F 98 H 22 02/16/17 22:11 97 H 152/83 02/16/17 22:10 97 H 152/83 02/16/17 22:08 22 02/16/17 21:14 97.7 F 97 H 20 02/16/17 20:36 110 H 20 02/16/17 16:02 99.1 F 107 H 20 02/16/17 15:18 88 156/78 02/16/17 14:47 104 H 16 02/16/17 14:37 101 H 16 02/16/17 14:00 98.1 F 100 H 20 160/82 02/16/17 13:30 107 H 175/91 02/16/17 13:00 107 H 156/88 02/16/17 12:45 106 H 164/89 02/16/17 12:30 107 H 162/88 02/16/17 12:15 110 H 185/105 02/16/17 12:00 107 H 170/98 02/16/17 11:45 105 H 178/95 02/16/17 11:30 105 H 168/89 02/16/17 11:15 106 H 163/91 BP Pulse Ox 02/17/17 10:45 02/17/17 08:02 02/17/17 07:49 94 02/17/17 07:29 133/71 93 02/17/17 05:42 128/68 100 02/17/17 05:41 02/17/17 05:00 02/17/17 02:01 02/17/17 01:48 97 02/17/17 01:28 02/17/17 01:12 02/17/17 00:46 121/69 99 02/16/17 22:11 02/16/17 22:10 02/16/17 22:08 02/16/17 21:14 152/83 100 02/16/17 20:36 97 02/16/17 16:02 154/85 94 02/16/17 15:18 02/16/17 14:47 02/16/17 14:37 02/16/17 14:00 02/16/17 13:30 02/16/17 13:00 02/16/17 12:45 02/16/17 12:30 02/16/17 12:15 02/16/17 12:00 02/16/17 11:45 02/16/17 11:30 02/16/17 11:15 - Physical Examination General: No Apparent Distress HEENT: Positive: PERRL, Normocephaly, Mucus Membranes Moist Neck: Positive: neck supple, trachea midline Cardiac: Positive: Tachycardia Lungs: Positive: Decreased Breath Sounds Neuro: Positive: Grossly Intact Abdomen: Positive: Soft, Distended Skin: Positive: Clear. Negative: Rash Extremities: Present: +3 Edema (chronic changes) - Labs and Meds CBC 02/17/17 Range/Units 04:09 WBC 4.1 L (4.5-11.0) K/mm3 RBC 3.45 L (3.65-5.03) M/mm3 Hgb 8.9 L (11.8-15.2) gm/dl Hct 28.6 L (35.5-45.6) % Plt Count 104 L (140-440) K/mm3 Lymph # 0.4 L (1.2-5.4) K/mm3 [place] # 0.4 (0.0-0.8) K/mm3 Eos # 0.0 (0.0-0.4) K/mm3 Baso # 0.0 (0.0-0.1) K/mm3 Comprehensive Metabolic Panel 02/17/17 Range/Units 04:09 Sodium 133 L (137-145) mmol/L Potassium 4.9 (3.6-5.0) mmol/L Chloride 92.8 L (98-107) mmol/L Carbon Dioxide 26 (22-30) mmol/L BUN 31 H (9-20) mg/dL Creatinine 6.2 H (0.8-1.5) mg/dL Glucose 88 (75-100) mg/dL Calcium 8.4 (8.4-10.2) mg/dL - Imaging and Cardiology EKG: report reviewed (NSR -no acute st t wave changes) Echo: report reviewed (01/2017: EF 20-25%, diastolic dysfunction, mild-moderate MR) - EKG Sinus rhythms and dysrhythmias: sinus rhythm Chamber hypertrophy or enlargement: left ventricular hypertro Repolarization changes or abnormalities: repolarization abn secondary to ventricular hypertrophy
[2017-02-17] MEDS: LASIX IV SCH ×3 (11:18→19:57)
[2017-02-17] MEDS: APRESOLINE PO SCH ×3 (11:19→19:58)
[2017-02-18] MEDS: MORPHINE IV PRN ×6 (00:04→22:14)
[2017-02-18] MEDS: DUONEB 0.5 MG-3 MG/3 ML SOLN IH SCH ×4 (01:19→19:44)
[2017-02-18] MEDS: BENADRYL PO PRN ×3 (04:39→20:32)
[2017-02-18] MEDS: ISORDIL TITRADOSE PO SCH ×3 (05:01→22:12)
[2017-02-18 05:44] LABS: Basophils % (Auto) 0.2 % (0.0-1.8); Eosinophils % (Auto) 0.3 % (0.0-4.3); Hematocrit 27.9 % (35.5-45.6); Hemoglobin 8.8 gm/dl (11.8-15.2); Mean Corpuscular HGB Conc 32 % (32-34); Mean Corpuscular Hemoglobin 26 pg (28-32); Mean Corpuscular Volume 83 fl (84-94); Red Blood Count 3.38 M/mm3 (3.65-5.03); White Blood Count 3.7 K/mm3 (4.5-11.0)
[2017-02-18 05:53] LABS: BUN/Creatinine Ratio 5.2; Calcium 8.5 mg/dL (8.4-10.2); Chloride 91.5 mmol/L (98-107); Phosphorous 4.4 mg/dL (2.5-4.5); Potassium 4.8 mmol/L (3.6-5.0)
[2017-02-18 06:04] LABS: Platelet Count 94 K/mm3 (140-440); Red Cell Distribution Width 22.5 % (13.2-15.2)
[2017-02-18] MEDS: PULMICORT IH SCH ×2 (07:09→19:44)
[2017-02-18] MEDS: BROVANA NEBU IH SCH ×2 (07:10→19:46)
[2017-02-18] MEDS: PHOSLO PO SCH ×3 (09:22→19:49)
[2017-02-18] MEDS: LASIX IV SCH ×3 (09:22→20:33)
--- NOTE | 2017-02-18 09:27 | Progress Note ---
Assessment and Plan (1) ESRD (end stage renal disease) on dialysis Current Visit: No Status: Chronic Plan to address problem: HD today for clearance and volume removal, UF goal 4-5 L if tolerated daily HD for now, diuretics ordered but no UOP recorded Fluid restriction of 1000 ml per day Obtain daily weights Renally dose medications Monitor I/O's Assess dialysis needs daily (2) HTN (hypertension) Current Visit: No Status: Chronic Qualifiers: Hypertension type: essential hypertension Qualified Code(s): I10 - Essential (primary) hypertension Plan to address problem: cont current regimen UF with HD (3) HIV positive Current Visit: Yes Status: Chronic Plan to address problem: On anti-retrovirals (4) Chest pain Current Visit: No Status: Acute Qualifiers: Chest pain type: unspecified Qualified Code(s): R07.9 - Chest pain, unspecified Plan to address problem: negative stress test Subjective Date of service: 02/18/17 Principal diagnosis: acute on chronic systolic heart failure Interval history: c/o lower ext and scrotal swelling Objective - Vital Signs Vital signs: Vital Signs - 12hr 02/17/17 02/17/17 02/17/17 21:45 21:46 22:00 Temperature Pulse Rate 92 H Pulse Rate [ Anterior Bilateral Throughout] Pulse Rate [ Left] Pulse Rate [ Right] Respiratory 22 Rate Respiratory Rate [Anterior Bilateral Throughout] Blood Pressure 138/81 138/81 Blood Pressure [Right Arm] O2 Sat by Pulse Oximetry 02/18/17 02/18/17 02/18/17 01:00 05:01 05:43 Temperature 98.9 F Pulse Rate 94 H Pulse Rate [ Anterior Bilateral Throughout] Pulse Rate [ Left] Pulse Rate [ 94 H Right] Respiratory 20 Rate Respiratory Rate [Anterior Bilateral Throughout] Blood Pressure 114/82 Blood Pressure 114/62 [Right Arm] O2 Sat by Pulse 95 Oximetry 02/18/17 02/18/17 02/18/17 05:59 07:10 07:18 Temperature 98.5 F Pulse Rate Pulse Rate [ 91 H Anterior Bilateral Throughout] Pulse Rate [ Left] Pulse Rate [ 92 H Right] Respiratory 20 Rate Respiratory 16 Rate [Anterior Bilateral Throughout] Blood Pressure Blood Pressure 139/65 [Right Arm] O2 Sat by Pulse 92 96 96 Oximetry 02/18/17 02/18/17 07:26 09:09 Temperature 98.1 F Pulse Rate Pulse Rate [ 91 H Anterior Bilateral Throughout] Pulse Rate [ 94 H Left] Pulse Rate [ Right] Respiratory 20 Rate Respiratory 18 Rate [Anterior Bilateral Throughout] Blood Pressure Blood Pressure 128/70 [Right Arm] O2 Sat by Pulse 94 Oximetry - General Appearance General appearance: well-developed, well-nourished EENT: ATNC, PERRL, mucous membranes moist Neck: no JVD, no carotid bruit Respiratory: Present: Decreased Breath Sounds Cardiology: regular, S1S2 Gastrointestinal: normoactive bowel sounds, no tenderness Integumentary: no rash, warm and dry Neurologic: no focal deficit, no asterixis, alert and oriented x3 Musculoskeletal: other (anasarca) Psychiatric: mood/affect appropriate, cooperative - Lab 02/18/17 04:12 02/18/17 04:12 Most recent lab results Calcium 8.5 mg/dL (8.4-10.2) 02/18/17 04:12 Phosphorus 4.4 mg/dL (2.5-4.5) 02/18/17 04:12
--- NOTE | 2017-02-18 10:45 | Progress Note ---
Assessment and Plan Assessment and plan: 1. Atypical chest pain. Patient with no acute EKG changes and stress MPI 2015 with no ischemia. Patient was previously scheduled for stress thallium. We will discuss with cardiology whether this is still an option. 2. Elevated troponin. Etiology likely due to ESRD. Cardiology following. 3. Acute on chronic systolic heart failure Echo 12/2015: EF 20-25%, impaired relaxation HD per nephrology for volume control. Nephrology would like to continue daily dialysis for the next 2-3 days. continue coreg/isordil/hydralazine no ACEI/ARB due to allergy Repeat echocardiogram revealed left ventricular size mild to moderately dilated EF measured at 20-25% Mild to moderate mitral regurgitation and mild pulmonary hypertension. 4. Hyperkalemia. Resolved. Continue hemodialysis per nephrology. Follow BMP. 5. Chronic respiratory failure. Continue O2 supplementation 6. Anemia. Etiology likely secondary to anemia of chronic disease. Check Hemoccult stools. 7. Nonischemic cardiomyopathy stress MPI 12/2015: no ischemia normal [facility] on cath at [facility] in the past per pt. report. outpatient f/u for consideration of ICD 8. Hypertension. Resume antihypertensive medications 9. Sleep apnea 10. End-stage renal disease on HD. Continue per nephrology. 11. HIV disease. Consider ID consultation. History Interval history: The patient is a 36 year old male with a history of chronic systolic heart failure, non-ischemic cardiomyopathy, chronic respiratory failure on home O2, ESRD on HD, HIV who presented with left sided chest pain, shortness of breath and "swelling all over" for the past several days. No new issues overnight. Patient still complains of scrotal and lower extremity edema. Hospitalist Physical - Constitutional Vitals: Temp Pulse Resp BP Pulse Ox 98.1 F 94 H 20 128/70 94 02/18/17 09:09 02/18/17 09:09 02/18/17 09:09 02/18/17 09:09 02/18/17 09:09 General appearance: Present: no acute distress, well-nourished - EENT Eyes: Present: PERRL, EOM intact ENT: hearing intact, clear oral mucosa, dentition normal - Neck Neck: Present: supple, normal ROM - Respiratory Respiratory effort: normal Respiratory: bilateral: CTA - Cardiovascular Rhythm: regular Heart Sounds: Present: S1 & S2. Absent: gallop, rub - Extremities Extremities: no ischemia, Full ROM Extremity abnormal: edema (2+) - Abdominal General gastrointestinal: soft, non-tender, non-distended, normal bowel sounds - Integumentary Integumentary: Present: clear, warm, dry - Neurologic Neurologic: CNII-XII intact, moves all extremities Results - Labs CBC & Chem 7: 02/18/17 04:12 02/18/17 04:12 Labs: Laboratory Last Values WBC 3.7 K/mm3 (4.5-11.0) L 02/18/17 04:12 RBC 3.38 M/mm3 (3.65-5.03) L 02/18/17 04:12 Hgb 8.8 gm/dl (11.8-15.2) L 02/18/17 04:12 Hct 27.9 % (35.5-45.6) L 02/18/17 04:12 MCV 83 fl (84-94) L 02/18/17 04:12 MCH 26 pg (28-32) L 02/18/17 04:12 MCHC 32 % (32-34) 02/18/17 04:12 RDW 22.5 % (13.2-15.2) H 02/18/17 04:12 Plt Count 94 K/mm3 (140-440) L 02/18/17 04:12 Lymph % (Auto) 11.5 % (13.4-35.0) L 02/18/17 04:12 [place] % (Auto) 10.9 % (0.0-7.3) H 02/18/17 04:12 Eos % (Auto) 0.3 % (0.0-4.3) 02/18/17 04:12 Baso % (Auto) 0.2 % (0.0-1.8) 02/18/17 04:12 Lymph # 0.4 K/mm3 (1.2-5.4) L 02/18/17 04:12 [place] # 0.4 K/mm3 (0.0-0.8) 02/18/17 04:12 Eos # 0.0 K/mm3 (0.0-0.4) 02/18/17 04:12 Baso # 0.0 K/mm3 (0.0-0.1) 02/18/17 04:12 Seg Neutrophils % 77.1 % (40.0-70.0) H 02/18/17 04:12 Seg Neutrophils # 2.9 K/mm3 (1.8-7.7) 02/18/17 04:12 PT 16.0 Sec. (12.2-14.9) H 02/11/17 14:07 INR 1.29 (0.87-1.13) H 02/11/17 14:07 APTT 37.1 Sec. (24.2-36.6) H 02/11/17 14:07 Sodium 130 mmol/L (137-145) L 02/18/17 04:12 Potassium 4.8 mmol/L (3.6-5.0) 02/18/17 04:12 Chloride 91.5 mmol/L (98-107) L 02/18/17 04:12 Carbon Dioxide 24 mmol/L (22-30) 02/18/17 04:12 Anion Gap 19 mmol/L 02/18/17 04:12 BUN 38 mg/dL (9-20) H 02/18/17 04:12 Creatinine 7.3 mg/dL (0.8-1.5) H 02/18/17 04:12 Estimated GFR 10 ml/min 02/18/17 04:12 BUN/Creatinine Ratio 5.20 % 02/18/17 04:12 Glucose 97 mg/dL (75-100) 02/18/17 04:12 Calcium 8.5 mg/dL (8.4-10.2) 02/18/17 04:12 Phosphorus 4.4 mg/dL (2.5-4.5) 02/18/17 04:12 Total Bilirubin 0.6 mg/dL (0.1-1.2) 02/12/17 04:50 AST 18 units/L (5-40) 02/12/17 04:50 ALT 12 units/L (7-56) 02/12/17 04:50 Alkaline Phosphatase 314 units/L (35-129) H 02/12/17 04:50 Total Creatine Kinase 37 units/L (55-170) L 02/12/17 04:50 CK-MB (CK-2) 3.0 ng/mL (0.0-4.0) 02/12/17 04:50 CK-MB (CK-2) Rel Index 8.1 (0-4) H 02/12/17 04:50 Troponin T 0.039 ng/mL (0.00-0.029) H 02/12/17 04:50 NT-Pro-B Natriuret Pep 66648 pg/mL (0-450) H 02/11/17 13:36 Total Protein 7.9 g/dL (6.3-8.2) 02/12/17 04:50 Albumin 3.1 g/dL (3.9-5) L 02/12/17 04:50 Albumin/Globulin Ratio 0.6 % 02/12/17 04:50 Triglycerides 64 mg/dL (2-149) 02/11/17 13:36 Cholesterol 101 mg/dL (50-199) 02/11/17 13:36 LDL Cholesterol Direct 50 mg/dL (50-130) 02/11/17 13:36 HDL Cholesterol 39 mg/dL (40-59) L 02/11/17 13:36 Cholesterol/HDL Ratio 2.58 % 02/11/17 13:36
--- NOTE | 2017-02-18 12:07 | Progress Note ---
Assessment and Plan Continue current management. Dialysis per nephrology. - Patient Problems (1) Atypical chest pain Current Visit: Yes Status: Resolved (2) Elevated troponin Current Visit: Yes Status: Acute (3) Acute on chronic systolic heart failure Current Visit: Yes Status: Acute (4) Non-ischemic cardiomyopathy Current Visit: Yes Status: Chronic (5) Chronic respiratory failure Current Visit: No Status: Chronic Qualifiers: Respiratory failure complication: R (6) ESRD (end stage renal disease) on dialysis Current Visit: No Status: Chronic (7) Anemia Current Visit: Yes Status: Chronic Qualifiers: Anemia type: A Iron deficiency anemia type: I Vitamin B12 deficiency anemia type: V Folate deficiency anemia type: F Bone marrow failure anemia type: B Hemolytic anemia type: H Other causes of anemia: O (8) HTN (hypertension) Current Visit: No Status: Chronic Qualifiers: Hypertension type: essential hypertension Qualified Code(s): I10 - Essential (primary) hypertension (9) Observed sleep apnea Current Visit: Yes Status: Chronic (10) HIV disease Current Visit: Yes Status: Chronic Subjective Date of service: 02/18/17 Principal diagnosis: acute on chronic systolic heart failure Interval history: The patient is seen and examined on dialysis. C/o lower extremity swelling. Sinus rhythm on the monitor. Objective Last Vital Signs Temp 97.8 F 02/18/17 09:45 Pulse 95 H 02/18/17 10:30 Resp 20 02/18/17 09:45 BP 140/84 02/18/17 10:30 Pulse Ox 94 02/18/17 09:09 - Physical Examination General: No Apparent Distress HEENT: Positive: PERRL, Normocephaly, Mucus Membranes Moist Neck: Positive: neck supple, trachea midline Cardiac: Positive: Reg Rate and Rhythm, S1/S2 Lungs: Positive: Decreased Breath Sounds Neuro: Positive: Grossly Intact Abdomen: Positive: Soft, Distended Skin: Positive: Clear. Negative: Rash Extremities: Present: +3 Edema (chronic changes) - Labs and Meds CBC 02/18/17 Range/Units 04:12 WBC 3.7 L (4.5-11.0) K/mm3 RBC 3.38 L (3.65-5.03) M/mm3 Hgb 8.8 L (11.8-15.2) gm/dl Hct 27.9 L (35.5-45.6) % Plt Count 94 L (140-440) K/mm3 Lymph # 0.4 L (1.2-5.4) K/mm3 [place] # 0.4 (0.0-0.8) K/mm3 Eos # 0.0 (0.0-0.4) K/mm3 Baso # 0.0 (0.0-0.1) K/mm3 Comprehensive Metabolic Panel 02/18/17 Range/Units 04:12 Sodium 130 L (137-145) mmol/L Potassium 4.8 (3.6-5.0) mmol/L Chloride 91.5 L (98-107) mmol/L Carbon Dioxide 24 (22-30) mmol/L BUN 38 H (9-20) mg/dL Creatinine 7.3 H (0.8-1.5) mg/dL Glucose 97 (75-100) mg/dL Calcium 8.5 (8.4-10.2) mg/dL - Imaging and Cardiology EKG: report reviewed (NSR -no acute st t wave changes) Echo: report reviewed (01/2017: EF 20-25%, diastolic dysfunction, mild-moderate MR) - Telemetry EKG Rhythm: Sinus Rhythm - EKG Sinus rhythms and dysrhythmias: sinus rhythm Chamber hypertrophy or enlargement: left ventricular hypertro Repolarization changes or abnormalities: repolarization abn secondary to ventricular hypertrophy
[2017-02-18] MEDS ORDERED: NACL 0.9 (PRIMING MACHINE ONLY DIALYSIS) MC ONE (12:38)
[2017-02-18] MEDS: PROCRIT IV PRN (12:48)
[2017-02-18] MEDS: APRESOLINE PO SCH ×3 (15:06→20:32)
[2017-02-18] MEDS: ZIAGEN PO SCH (15:17)
[2017-02-18] MEDS: NORVIR PO SCH (15:18)
[2017-02-18] MEDS: PREZISTA PO SCH (15:18)
[2017-02-18] MEDS: DAPSONE PO SCH ×2 (15:19→22:13)
[2017-02-18] MEDS: PROTONIX PO SCH (15:20)
[2017-02-18] MEDS: ZAROXOLYN PO SCH (15:20)
[2017-02-18] MEDS: NEURONTIN PO SCH ×2 (15:21→22:13)
[2017-02-18] MEDS: EPIVIR PO SCH ×2 (15:21→20:53)
[2017-02-18] MEDS: COREG PO SCH ×3 (18:32→22:15)
--- NOTE | 2017-02-18 23:49 | Ultrasound Report ---
FINAL REPORT PROCEDURE: US TESTICULAR DOPPLER COMP TECHNIQUE: Real-time reed-scale and color flow Doppler sonography in multiple planes of the scrotum, testicles, and epididymes was performed. Velocity spectral waveform analysis Doppler imaging of the arterial inflow and venous outflow of the testicles was performed with image documentation. CPT 74386 and 60708 HISTORY: Scrotal swelling. COMPARISON: No prior studies are available for comparison. FINDINGS: RIGHT TESTICLE: Size: 4.9 x 3.1 x 2.8 cm . Appearance: Normal size and echotexture . Arterial blood flow: Normal spectral waveforms, flow velocities and color flow images.. Venous blood flow: Normal spectral waveforms and color flow images. Right epididymis: Enlarged epididymis. Hydrocele: Small hydrocele. Other: Severe scrotal skin thickening LEFT TESTICLE Size: 3.4 x 2.8 x 2.7 cm . Appearance: Normal size and echotexture . Arterial blood flow: No demonstrated flow. Venous blood flow: No demonstrated flow. Left epididymis: Enlarged epididymis. Hydrocele: Small hydrocele. Other: Severe scrotal skin thickening IMPRESSION: There is no intratesticular mass. There is no demonstrated blood flow in the left testicle. Torsion is not excluded. Severe scrotal skin thickening.
[2017-02-19] MEDS: DUONEB 0.5 MG-3 MG/3 ML SOLN IH SCH ×4 (01:30→19:52)
[2017-02-19] MEDS: MORPHINE IV PRN ×4 (03:38→21:51)
[2017-02-19] MEDS: ISORDIL TITRADOSE PO SCH ×3 (05:40→21:52)
[2017-02-19 05:54] LABS: Basophils % (Auto) 0.3 % (0.0-1.8); Eosinophils % (Auto) 0.4 % (0.0-4.3); Mean Corpuscular HGB Conc 31 % (32-34); Mean Corpuscular Volume 83 fl (84-94); Platelet Count 109 K/mm3 (140-440); Red Blood Count 3.48 M/mm3 (3.65-5.03); White Blood Count 3.9 K/mm3 (4.5-11.0)
[2017-02-19 05:56] LABS: Mean Corpuscular Hemoglobin 26 pg (28-32); Red Cell Distribution Width 22.4 % (13.2-15.2)
[2017-02-19 06:15] LABS: BUN/Creatinine Ratio 4.59; Calcium 8.4 mg/dL (8.4-10.2); Chloride 93.3 mmol/L (98-107); Potassium 4.4 mmol/L (3.6-5.0)
[2017-02-19] MEDS: BROVANA NEBU IH SCH ×2 (08:30→19:52)
[2017-02-19] MEDS: PULMICORT IH SCH ×2 (08:30→19:52)
[2017-02-19] MEDS: ZAROXOLYN PO SCH (09:07)
[2017-02-19] MEDS: PHOSLO PO SCH ×3 (09:07→16:50)
[2017-02-19] MEDS: APRESOLINE PO SCH ×3 (09:07→21:52)
[2017-02-19] MEDS: NEURONTIN PO SCH ×2 (09:08→21:53)
[2017-02-19] MEDS: PROTONIX PO SCH (09:08)
[2017-02-19] MEDS: BENADRYL PO PRN ×2 (09:08→17:47)
[2017-02-19] MEDS: COREG PO SCH ×2 (09:08→21:54)
[2017-02-19] MEDS: PREZISTA PO SCH (09:08)
[2017-02-19] MEDS: DAPSONE PO SCH ×2 (09:09→21:54)
[2017-02-19] MEDS: NORVIR PO SCH (09:09)
[2017-02-19] MEDS: EPIVIR PO SCH ×2 (09:10→09:30)
[2017-02-19] MEDS: ZIAGEN PO SCH (09:10)
--- NOTE | 2017-02-19 09:22 | Progress Note ---
Assessment and Plan (1) ESRD (end stage renal disease) on dialysis Current Visit: No Status: Chronic Plan to address problem: cont daily HD with UF 4-5 L cont IV lasix and metolazone Fluid restriction of 1000 ml per day Obtain daily weights Renally dose medications Monitor I/O's Assess dialysis needs daily (2) HTN (hypertension) Current Visit: No Status: Chronic Qualifiers: Hypertension type: essential hypertension Qualified Code(s): I10 - Essential (primary) hypertension Plan to address problem: cont current regimen UF with HD (3) HIV positive Current Visit: Yes Status: Chronic Plan to address problem: On anti-retrovirals (4) Chest pain Current Visit: No Status: Acute Qualifiers: Chest pain type: unspecified Qualified Code(s): R07.9 - Chest pain, unspecified Plan to address problem: negative stress test Subjective Date of service: 02/19/17 Principal diagnosis: acute on chronic systolic heart failure Interval history: tolerated HD yesterday, mild improvement in scrotal swelling Objective - Vital Signs Vital signs: Vital Signs - 12hr 02/18/17 02/18/17 02/18/17 21:56 22:00 22:12 Temperature Pulse Rate 100 H Pulse Rate [ Anterior Bilateral Throughout] Pulse Rate [ Right] Respiratory 22 Rate Respiratory Rate [Anterior Bilateral Throughout] Blood Pressure 139/81 Blood Pressure [Left Arm] Blood Pressure [Right Arm] O2 Sat by Pulse Oximetry 02/18/17 02/18/17 02/19/17 22:15 23:33 01:32 Temperature 97.6 F Pulse Rate Pulse Rate [ 88 Anterior Bilateral Throughout] Pulse Rate [ 92 H Right] Respiratory 18 Rate Respiratory 16 Rate [Anterior Bilateral Throughout] Blood Pressure 131/81 Blood Pressure [Left Arm] Blood Pressure 126/69 [Right Arm] O2 Sat by Pulse 95 Oximetry 02/19/17 02/19/17 02/19/17 01:45 05:07 05:40 Temperature 98.6 F Pulse Rate Pulse Rate [ 90 Anterior Bilateral Throughout] Pulse Rate [ 94 H Right] Respiratory 18 Rate Respiratory 16 Rate [Anterior Bilateral Throughout] Blood Pressure 139/87 Blood Pressure [Left Arm] Blood Pressure 126/81 [Right Arm] O2 Sat by Pulse 96 Oximetry 02/19/17 02/19/17 02/19/17 05:52 07:46 08:30 Temperature 97.7 F Pulse Rate 98 H Pulse Rate [ 102 H Anterior Bilateral Throughout] Pulse Rate [ 96 H Right] Respiratory 26 H Rate Respiratory 20 Rate [Anterior Bilateral Throughout] Blood Pressure Blood Pressure 141/98 [Left Arm] Blood Pressure [Right Arm] O2 Sat by Pulse 96 94 Oximetry 02/19/17 08:40 Temperature Pulse Rate Pulse Rate [ 108 H Anterior Bilateral Throughout] Pulse Rate [ Right] Respiratory Rate Respiratory 20 Rate [Anterior Bilateral Throughout] Blood Pressure Blood Pressure [Left Arm] Blood Pressure [Right Arm] O2 Sat by Pulse Oximetry - General Appearance General appearance: well-developed, well-nourished, appears stated age EENT: ATNC, PERRL, mucous membranes moist Neck: no JVD, no carotid bruit Respiratory: Present: Decreased Breath Sounds Cardiology: regular, S1S2 Gastrointestinal: normoactive bowel sounds, no tenderness, no distended, no masses Integumentary: no rash, warm and dry Neurologic: no focal deficit, no asterixis, alert and oriented x3 Musculoskeletal: other (Anasarca) Psychiatric: mood/affect appropriate, cooperative - Lab 02/19/17 04:23 02/19/17 04:23 Most recent lab results Calcium 8.4 mg/dL (8.4-10.2) 02/19/17 04:23 Phosphorus 4.4 mg/dL (2.5-4.5) 02/18/17 04:12
[2017-02-19] MEDS: LASIX IV SCH ×3 (09:24→21:51)
--- NOTE | 2017-02-19 11:45 | Progress Note ---
Assessment and Plan Continue current management. Dialysis per nephrology. - Patient Problems (1) Atypical chest pain Current Visit: Yes Status: Resolved (2) Elevated troponin Current Visit: Yes Status: Acute (3) Acute on chronic systolic heart failure Current Visit: Yes Status: Acute (4) Non-ischemic cardiomyopathy Current Visit: Yes Status: Chronic (5) Chronic respiratory failure Current Visit: No Status: Chronic Qualifiers: Respiratory failure complication: R (6) ESRD (end stage renal disease) on dialysis Current Visit: No Status: Chronic (7) Anemia Current Visit: Yes Status: Chronic Qualifiers: Anemia type: A Iron deficiency anemia type: I Vitamin B12 deficiency anemia type: V Folate deficiency anemia type: F Bone marrow failure anemia type: B Hemolytic anemia type: H Other causes of anemia: O (8) HTN (hypertension) Current Visit: No Status: Chronic Qualifiers: Hypertension type: essential hypertension Qualified Code(s): I10 - Essential (primary) hypertension (9) Observed sleep apnea Current Visit: Yes Status: Chronic (10) HIV disease Current Visit: Yes Status: Chronic Subjective Date of service: 02/19/17 Principal diagnosis: acute on chronic systolic heart failure Interval history: The patient is resting in bed. He remains short of breath with significant edema. Sinus rhythm on the monitor. Objective Last Vital Signs Temp 97.7 F 02/19/17 07:46 Pulse 108 H 02/19/17 08:40 Resp 20 02/19/17 08:40 BP 141/98 02/19/17 07:46 Pulse Ox 98 02/19/17 10:00 - Physical Examination General: No Apparent Distress HEENT: Positive: PERRL, Normocephaly, Mucus Membranes Moist Neck: Positive: neck supple, trachea midline Cardiac: Positive: Reg Rate and Rhythm, S1/S2 Lungs: Positive: Decreased Breath Sounds Neuro: Positive: Grossly Intact Abdomen: Positive: Soft, Distended Skin: Positive: Clear. Negative: Rash Extremities: Present: +3 Edema (chronic changes) - Labs and Meds CBC 02/19/17 Range/Units 04:23 WBC 3.9 L (4.5-11.0) K/mm3 RBC 3.48 L (3.65-5.03) M/mm3 Hgb 9.0 L (11.8-15.2) gm/dl Hct 29.0 L (35.5-45.6) % Plt Count 109 L (140-440) K/mm3 Lymph # 0.5 L (1.2-5.4) K/mm3 [place] # 0.5 (0.0-0.8) K/mm3 Eos # 0.0 (0.0-0.4) K/mm3 Baso # 0.0 (0.0-0.1) K/mm3 Comprehensive Metabolic Panel 02/19/17 Range/Units 04:23 Sodium 132 L (137-145) mmol/L Potassium 4.4 (3.6-5.0) mmol/L Chloride 93.3 L (98-107) mmol/L Carbon Dioxide 25 (22-30) mmol/L BUN 28 H (9-20) mg/dL Creatinine 6.1 H (0.8-1.5) mg/dL Glucose 106 H (75-100) mg/dL Calcium 8.4 (8.4-10.2) mg/dL - Imaging and Cardiology EKG: report reviewed (NSR -no acute st t wave changes) Echo: report reviewed (01/2017: EF 20-25%, diastolic dysfunction, mild-moderate MR) - Telemetry EKG Rhythm: Sinus Rhythm - EKG Sinus rhythms and dysrhythmias: sinus rhythm Chamber hypertrophy or enlargement: left ventricular hypertro Repolarization changes or abnormalities: repolarization abn secondary to ventricular hypertrophy
--- NOTE | 2017-02-19 22:31 | Progress Note ---
Hospitalist Physical - Constitutional Vitals: Temp Pulse Resp BP Pulse Ox 98.4 F 101 H 20 123/67 96 02/19/17 20:00 02/19/17 21:54 02/19/17 20:09 02/19/17 21:54 02/19/17 20:00 General appearance: Present: no acute distress, well-nourished Results - Labs CBC & Chem 7: 02/19/17 04:23 02/19/17 04:23 Labs: Laboratory Last Values WBC 3.9 K/mm3 (4.5-11.0) L 02/19/17 04:23 RBC 3.48 M/mm3 (3.65-5.03) L 02/19/17 04:23 Hgb 9.0 gm/dl (11.8-15.2) L 02/19/17 04:23 Hct 29.0 % (35.5-45.6) L 02/19/17 04:23 MCV 83 fl (84-94) L 02/19/17 04:23 MCH 26 pg (28-32) L 02/19/17 04:23 MCHC 31 % (32-34) L 02/19/17 04:23 RDW 22.4 % (13.2-15.2) H 02/19/17 04:23 Plt Count 109 K/mm3 (140-440) L 02/19/17 04:23 Lymph % (Auto) 11.8 % (13.4-35.0) L 02/19/17 04:23 [place] % (Auto) 12.4 % (0.0-7.3) H 02/19/17 04:23 Eos % (Auto) 0.4 % (0.0-4.3) 02/19/17 04:23 Baso % (Auto) 0.3 % (0.0-1.8) 02/19/17 04:23 Lymph # 0.5 K/mm3 (1.2-5.4) L 02/19/17 04:23 [place] # 0.5 K/mm3 (0.0-0.8) 02/19/17 04:23 Eos # 0.0 K/mm3 (0.0-0.4) 02/19/17 04:23 Baso # 0.0 K/mm3 (0.0-0.1) 02/19/17 04:23 Seg Neutrophils % 75.1 % (40.0-70.0) H 02/19/17 04:23 Seg Neutrophils # 2.9 K/mm3 (1.8-7.7) 02/19/17 04:23 PT 16.0 Sec. (12.2-14.9) H 02/11/17 14:07 INR 1.29 (0.87-1.13) H 02/11/17 14:07 APTT 37.1 Sec. (24.2-36.6) H 02/11/17 14:07 Sodium 132 mmol/L (137-145) L 02/19/17 04:23 Potassium 4.4 mmol/L (3.6-5.0) 02/19/17 04:23 Chloride 93.3 mmol/L (98-107) L 02/19/17 04:23 Carbon Dioxide 25 mmol/L (22-30) 02/19/17 04:23 Anion Gap 18 mmol/L 02/19/17 04:23 BUN 28 mg/dL (9-20) H 02/19/17 04:23 Creatinine 6.1 mg/dL (0.8-1.5) H 02/19/17 04:23 Estimated GFR 13 ml/min 02/19/17 04:23 BUN/Creatinine Ratio 4.59 % 02/19/17 04:23 Glucose 106 mg/dL (75-100) H 02/19/17 04:23 Calcium 8.4 mg/dL (8.4-10.2) 02/19/17 04:23 Phosphorus 4.4 mg/dL (2.5-4.5) 02/18/17 04:12 Total Bilirubin 0.6 mg/dL (0.1-1.2) 02/12/17 04:50 AST 18 units/L (5-40) 02/12/17 04:50 ALT 12 units/L (7-56) 02/12/17 04:50 Alkaline Phosphatase 314 units/L (35-129) H 02/12/17 04:50 Total Creatine Kinase 37 units/L (55-170) L 02/12/17 04:50 CK-MB (CK-2) 3.0 ng/mL (0.0-4.0) 02/12/17 04:50 CK-MB (CK-2) Rel Index 8.1 (0-4) H 02/12/17 04:50 Troponin T 0.039 ng/mL (0.00-0.029) H 02/12/17 04:50 NT-Pro-B Natriuret Pep 50210 pg/mL (0-450) H 02/11/17 13:36 Total Protein 7.9 g/dL (6.3-8.2) 02/12/17 04:50 Albumin 3.1 g/dL (3.9-5) L 02/12/17 04:50 Albumin/Globulin Ratio 0.6 % 02/12/17 04:50 Triglycerides 64 mg/dL (2-149) 02/11/17 13:36 Cholesterol 101 mg/dL (50-199) 02/11/17 13:36 LDL Cholesterol Direct 50 mg/dL (50-130) 02/11/17 13:36 HDL Cholesterol 39 mg/dL (40-59) L 02/11/17 13:36 Cholesterol/HDL Ratio 2.58 % 02/11/17 13:36
[2017-02-20] MEDS: MORPHINE IV PRN ×3 (05:49→19:22)
[2017-02-20] MEDS: ISORDIL TITRADOSE PO SCH ×3 (05:50→21:22)
[2017-02-20] MEDS: BROVANA NEBU IH SCH ×2 (07:56→21:37)
[2017-02-20] MEDS: PULMICORT IH SCH ×2 (07:56→21:37)
[2017-02-20] MEDS: DUONEB 0.5 MG-3 MG/3 ML SOLN IH SCH ×3 (08:00→21:37)
[2017-02-20] MEDS: APRESOLINE PO SCH ×3 (08:27→19:35)
[2017-02-20] MEDS: PHOSLO PO SCH ×3 (08:27→17:04)
[2017-02-20] MEDS: LASIX IV SCH ×3 (08:28→19:35)
--- NOTE | 2017-02-20 09:19 | Progress Note ---
Assessment and Plan - Patient Problems (1) ESRD (end stage renal disease) on dialysis Current Visit: No Status: Chronic Plan to address problem: Continue on daily hemodialysis with UF goal: 4-5 L Continue on IV Lasix 100 mg TID and Metolazone 10 mg po daily Fluid restriction of 1000 ml per day Obtain daily weights Renally dose medications Monitor I/O's (2) Anasarca Current Visit: Yes Status: Acute Plan to address problem: Obtain venous doppler of bilateral lower extremities Continue on daily HD with UF goal 4-5L Fluid restriction of 1000 ml per day (3) HTN (hypertension) Current Visit: No Status: Chronic Qualifiers: Hypertension type: essential hypertension Qualified Code(s): I10 - Essential (primary) hypertension Plan to address problem: Blood pressures are stable (4) HIV positive Current Visit: Yes Status: Chronic Plan to address problem: On anti-retrovirals (5) Chest pain Current Visit: No Status: Acute Qualifiers: Chest pain type: unspecified Qualified Code(s): R07.9 - Chest pain, unspecified Plan to address problem: No acute EKG changes, Stress MPI 12/2015: No ischemia- per Cardiology Echocardiogram EF: 20-25% Subjective Date of service: 02/20/17 Principal diagnosis: acute on chronic systolic heart failure Interval history: Patient seen sitting up in chair at bedside. Complains of swelling to his scrotum. Objective - Vital Signs Vital signs: Vital Signs - 12hr 02/19/17 02/19/17 02/19/17 21:52 21:54 23:54 Temperature 98 F Pulse Rate 101 H 101 H Pulse Rate [ Left Radial] Pulse Rate [ Right Radial] Pulse Rate [ 101 H Right] Respiratory 21 Rate Blood Pressure 123/67 123/67 Blood Pressure 140/82 [Right Arm] O2 Sat by Pulse 93 Oximetry 02/20/17 02/20/17 02/20/17 01:37 05:29 08:56 Temperature 97.3 F L 97.6 F Pulse Rate 99 H Pulse Rate [ 101 H Left Radial] Pulse Rate [ 99 H 91 H Right Radial] Pulse Rate [ Right] Respiratory 20 23 20 Rate Blood Pressure Blood Pressure 132/70 132/72 [Right Arm] O2 Sat by Pulse 98 97 98 Oximetry - General Appearance General appearance: well-developed, fatigue EENT: ATNC, PERRL, hearing intact, vision intact Neck: no JVD, no carotid bruit, supple Respiratory: Present: Decreased Breath Sounds Cardiology: regular, tachycardia, S1S2 Gastrointestinal: normoactive bowel sounds Integumentary: warm and dry Neurologic: alert and oriented x3 Musculoskeletal: joint swelling, other (2+ edema to lower extremities and thighs , scrotal edema, anasarca ) Psychiatric: agitated - Lab 02/19/17 04:23 02/19/17 04:23 Most recent lab results Calcium 8.4 mg/dL (8.4-10.2) 02/19/17 04:23 Phosphorus 4.4 mg/dL (2.5-4.5) 02/18/17 04:12
[2017-02-20] MEDS: COREG PO SCH ×2 (09:29→21:21)
[2017-02-20] MEDS: PREZISTA PO SCH (09:30)
[2017-02-20] MEDS: NEURONTIN PO SCH ×2 (09:30→21:22)
[2017-02-20] MEDS: ZIAGEN PO SCH (09:30)
[2017-02-20] MEDS: ZAROXOLYN PO SCH (09:31)
[2017-02-20] MEDS: PROTONIX PO SCH (09:31)
[2017-02-20] MEDS: DAPSONE PO SCH ×2 (09:32→21:21)
[2017-02-20] MEDS: NORVIR PO SCH (09:32)
[2017-02-20] MEDS: EPIVIR PO SCH (09:33)
--- NOTE | 2017-02-20 11:32 | Progress Note ---
Assessment and Plan Continue current management. Dialysis per nephrology. - Patient Problems (1) Atypical chest pain Current Visit: Yes Status: Resolved (2) Elevated troponin Current Visit: Yes Status: Acute (3) Acute on chronic systolic heart failure Current Visit: Yes Status: Acute (4) Non-ischemic cardiomyopathy Current Visit: Yes Status: Chronic (5) Chronic respiratory failure Current Visit: No Status: Chronic Qualifiers: Respiratory failure complication: R (6) ESRD (end stage renal disease) on dialysis Current Visit: No Status: Chronic (7) Anemia Current Visit: Yes Status: Chronic Qualifiers: Anemia type: A Iron deficiency anemia type: I Vitamin B12 deficiency anemia type: V Folate deficiency anemia type: F Bone marrow failure anemia type: B Hemolytic anemia type: H Other causes of anemia: O (8) HTN (hypertension) Current Visit: No Status: Chronic Qualifiers: Hypertension type: essential hypertension Qualified Code(s): I10 - Essential (primary) hypertension (9) Observed sleep apnea Current Visit: Yes Status: Chronic (10) HIV disease Current Visit: Yes Status: Chronic Subjective Date of service: 02/20/17 Principal diagnosis: acute on chronic systolic heart failure Interval history: The patient is sitting up in bed. He continues to c/o shortness of breath and edema. Sinus rhythm on the monitor. Objective Last Vital Signs Temp 97.6 F 02/20/17 08:56 Pulse 91 H 02/20/17 08:56 Resp 20 02/20/17 08:56 BP 132/72 02/20/17 08:56 Pulse Ox 98 02/20/17 08:56 - Physical Examination General: No Apparent Distress HEENT: Positive: PERRL, Normocephaly, Mucus Membranes Moist Neck: Positive: neck supple, trachea midline Cardiac: Positive: Reg Rate and Rhythm, S1/S2 Lungs: Positive: Decreased Breath Sounds Neuro: Positive: Grossly Intact Abdomen: Positive: Soft, Distended Skin: Positive: Clear. Negative: Rash Extremities: Present: +3 Edema (chronic changes) - Imaging and Cardiology EKG: report reviewed (NSR -no acute st t wave changes) Echo: report reviewed (01/2017: EF 20-25%, diastolic dysfunction, mild-moderate MR) - Telemetry EKG Rhythm: Sinus Rhythm - EKG Sinus rhythms and dysrhythmias: sinus rhythm Chamber hypertrophy or enlargement: left ventricular hypertro Repolarization changes or abnormalities: repolarization abn secondary to ventricular hypertrophy
[2017-02-20] MEDS: BENADRYL PO PRN (12:41)
[2017-02-20] MEDS: PROCRIT IV PRN (15:53)
[2017-02-20] MEDS ORDERED: BENADRYL IV ONE (16:00)
--- NOTE | 2017-02-20 19:03 | Progress Note ---
Hospitalist Physical - Constitutional Vitals: Temp Pulse Resp BP Pulse Ox 97.6 F 106 H 26 H 149/81 98 02/20/17 13:05 02/20/17 17:55 02/20/17 17:55 02/20/17 17:55 02/20/17 08:56 General appearance: Present: no acute distress, well-nourished Results - Labs CBC & Chem 7: 02/19/17 04:23 02/19/17 04:23 Labs: Laboratory Last Values WBC 3.9 K/mm3 (4.5-11.0) L 02/19/17 04:23 RBC 3.48 M/mm3 (3.65-5.03) L 02/19/17 04:23 Hgb 9.0 gm/dl (11.8-15.2) L 02/19/17 04:23 Hct 29.0 % (35.5-45.6) L 02/19/17 04:23 MCV 83 fl (84-94) L 02/19/17 04:23 MCH 26 pg (28-32) L 02/19/17 04:23 MCHC 31 % (32-34) L 02/19/17 04:23 RDW 22.4 % (13.2-15.2) H 02/19/17 04:23 Plt Count 109 K/mm3 (140-440) L 02/19/17 04:23 Lymph % (Auto) 11.8 % (13.4-35.0) L 02/19/17 04:23 [place] % (Auto) 12.4 % (0.0-7.3) H 02/19/17 04:23 Eos % (Auto) 0.4 % (0.0-4.3) 02/19/17 04:23 Baso % (Auto) 0.3 % (0.0-1.8) 02/19/17 04:23 Lymph # 0.5 K/mm3 (1.2-5.4) L 02/19/17 04:23 [place] # 0.5 K/mm3 (0.0-0.8) 02/19/17 04:23 Eos # 0.0 K/mm3 (0.0-0.4) 02/19/17 04:23 Baso # 0.0 K/mm3 (0.0-0.1) 02/19/17 04:23 Seg Neutrophils % 75.1 % (40.0-70.0) H 02/19/17 04:23 Seg Neutrophils # 2.9 K/mm3 (1.8-7.7) 02/19/17 04:23 PT 16.0 Sec. (12.2-14.9) H 02/11/17 14:07 INR 1.29 (0.87-1.13) H 02/11/17 14:07 APTT 37.1 Sec. (24.2-36.6) H 02/11/17 14:07 Sodium 132 mmol/L (137-145) L 02/19/17 04:23 Potassium 4.4 mmol/L (3.6-5.0) 02/19/17 04:23 Chloride 93.3 mmol/L (98-107) L 02/19/17 04:23 Carbon Dioxide 25 mmol/L (22-30) 02/19/17 04:23 Anion Gap 18 mmol/L 02/19/17 04:23 BUN 28 mg/dL (9-20) H 02/19/17 04:23 Creatinine 6.1 mg/dL (0.8-1.5) H 02/19/17 04:23 Estimated GFR 13 ml/min 02/19/17 04:23 BUN/Creatinine Ratio 4.59 % 02/19/17 04:23 Glucose 106 mg/dL (75-100) H 02/19/17 04:23 Calcium 8.4 mg/dL (8.4-10.2) 02/19/17 04:23 Phosphorus 4.4 mg/dL (2.5-4.5) 02/18/17 04:12 Total Bilirubin 0.6 mg/dL (0.1-1.2) 02/12/17 04:50 AST 18 units/L (5-40) 02/12/17 04:50 ALT 12 units/L (7-56) 02/12/17 04:50 Alkaline Phosphatase 314 units/L (35-129) H 02/12/17 04:50 Total Creatine Kinase 37 units/L (55-170) L 02/12/17 04:50 CK-MB (CK-2) 3.0 ng/mL (0.0-4.0) 02/12/17 04:50 CK-MB (CK-2) Rel Index 8.1 (0-4) H 02/12/17 04:50 Troponin T 0.039 ng/mL (0.00-0.029) H 02/12/17 04:50 NT-Pro-B Natriuret Pep 67456 pg/mL (0-450) H 02/11/17 13:36 Total Protein 7.9 g/dL (6.3-8.2) 02/12/17 04:50 Albumin 3.1 g/dL (3.9-5) L 02/12/17 04:50 Albumin/Globulin Ratio 0.6 % 02/12/17 04:50 Triglycerides 64 mg/dL (2-149) 02/11/17 13:36 Cholesterol 101 mg/dL (50-199) 02/11/17 13:36 LDL Cholesterol Direct 50 mg/dL (50-130) 02/11/17 13:36 HDL Cholesterol 39 mg/dL (40-59) L 02/11/17 13:36 Cholesterol/HDL Ratio 2.58 % 02/11/17 13:36
[2017-02-21] MEDS: BENADRYL PO PRN ×3 (00:59→23:59)
[2017-02-21] MEDS: MORPHINE IV PRN ×6 (00:59→23:59)
[2017-02-21] MEDS: ISORDIL TITRADOSE PO SCH ×2 (05:49→15:10)
[2017-02-21 06:18] LABS: Hematocrit 30.8 % (35.5-45.6); Hemoglobin 9.4 gm/dl (11.8-15.2); Mean Corpuscular HGB Conc 31 % (32-34); Mean Corpuscular Volume 83 fl (84-94); Platelet Count 149 K/mm3 (140-440); Red Blood Count 3.69 M/mm3 (3.65-5.03); White Blood Count 4.5 K/mm3 (4.5-11.0)
[2017-02-21 06:21] LABS: Mean Corpuscular Hemoglobin 26 pg (28-32); Red Cell Distribution Width 21.8 % (13.2-15.2)
[2017-02-21] MEDS: DUONEB 0.5 MG-3 MG/3 ML SOLN IH SCH ×4 (06:54→19:42)
[2017-02-21 06:56] LABS: Albumin 2.9 g/dL (3.9-5); Albumin/Globulin Ratio 0.5 %; BUN/Creatinine Ratio 3.58; Bilirubin,Total 0.6 mg/dL (0.1-1.2); Calcium 8.8 mg/dL (8.4-10.2); Chloride 99.3 mmol/L (98-107); Phosphorous 2.7 mg/dL (2.5-4.5); Potassium 4.3 mmol/L (3.6-5.0); Total Protein 8.2 g/dL (6.3-8.2)
[2017-02-21] MEDS: PULMICORT IH SCH ×2 (08:34→19:42)
[2017-02-21] MEDS: BROVANA NEBU IH SCH ×2 (08:34→19:42)
[2017-02-21] MEDS: APRESOLINE PO SCH ×2 (09:19→15:21)
[2017-02-21] MEDS: PHOSLO PO SCH ×3 (09:19→17:50)
--- NOTE | 2017-02-21 09:32 | Progress Note ---
Assessment and Plan (1) ESRD (end stage renal disease) on dialysis Current Visit: No Status: Chronic Plan to address problem: Continue on daily hemodialysis with UF goal: 4-5 L Continue on IV Lasix 100 mg TID and Metolazone 10 mg po daily can be discharged after HD tomorrow Fluid restriction of 1000 ml per day Obtain daily weights Renally dose medications Monitor I/O's (2) Anasarca Current Visit: Yes Status: Acute Plan to address problem: Continue on daily HD with UF goal 4-5L Fluid restriction of 1000 ml per day (3) HTN (hypertension) Current Visit: No Status: Chronic Qualifiers: Hypertension type: essential hypertension Qualified Code(s): I10 - Essential (primary) hypertension Plan to address problem: Blood pressures are stable (4) HIV positive Current Visit: Yes Status: Chronic Plan to address problem: On anti-retrovirals (5) Chest pain Current Visit: No Status: Acute Qualifiers: Chest pain type: unspecified Qualified Code(s): R07.9 - Chest pain, unspecified Plan to address problem: No acute EKG changes, Stress MPI 12/2015: No ischemia- per Cardiology Echocardiogram EF: 20-25% Subjective Date of service: 02/21/17 Principal diagnosis: acute on chronic systolic heart failure Interval history: tolerating daily HD well, swelling is improving Objective - Vital Signs Vital signs: Vital Signs - 12hr 02/20/17 02/20/17 02/20/17 21:37 21:43 21:54 Temperature Pulse Rate Pulse Rate [ 100 H 98 H Anterior Bilateral Throughout] Pulse Rate [ 99 H Right Radial] Pulse Rate [ Right] Respiratory 20 Rate Respiratory 18 18 Rate [Anterior Bilateral Throughout] Blood Pressure 137/70 [Right Arm] O2 Sat by Pulse 98 99 Oximetry 02/20/17 02/21/17 02/21/17 22:20 01:05 04:10 Temperature 98.6 F 98.3 F Pulse Rate 106 H Pulse Rate [ Anterior Bilateral Throughout] Pulse Rate [ 94 H 99 H Right Radial] Pulse Rate [ Right] Respiratory 20 20 Rate Respiratory Rate [Anterior Bilateral Throughout] Blood Pressure 122/65 129/70 [Right Arm] O2 Sat by Pulse 94 98 Oximetry 02/21/17 02/21/17 02/21/17 08:35 08:36 08:49 Temperature 98.2 F Pulse Rate Pulse Rate [ 94 H Anterior Bilateral Throughout] Pulse Rate [ Right Radial] Pulse Rate [ 94 H Right] Respiratory 20 Rate Respiratory 18 Rate [Anterior Bilateral Throughout] Blood Pressure 137/79 [Right Arm] O2 Sat by Pulse 96 97 Oximetry - General Appearance General appearance: well-developed, well-nourished EENT: ATNC, PERRL, mucous membranes moist Neck: no JVD, no carotid bruit Respiratory: Present: Decreased Breath Sounds Cardiology: regular, S1S2 Gastrointestinal: normoactive bowel sounds, no tenderness, no distended, obese Integumentary: no rash, warm and dry Neurologic: no focal deficit, no asterixis, alert and oriented x3 Musculoskeletal: other (Anasarca) Psychiatric: mood/affect appropriate, cooperative - Lab 02/21/17 04:49 02/21/17 04:49 Most recent lab results Calcium 8.8 mg/dL (8.4-10.2) 02/21/17 04:49 Phosphorus 2.7 mg/dL (2.5-4.5) 02/21/17 04:49
[2017-02-21] MEDS: LASIX IV SCH ×3 (09:39→23:58)
[2017-02-21] MEDS ORDERED: NACL 0.9 (PRIMING MACHINE ONLY DIALYSIS) MC ONE (10:52)
--- NOTE | 2017-02-21 11:34 | Progress Note ---
Assessment and Plan Continue current management. Dialysis per nephrology. - Patient Problems (1) Atypical chest pain Current Visit: Yes Status: Resolved (2) Elevated troponin Current Visit: Yes Status: Acute (3) Acute on chronic systolic heart failure Current Visit: Yes Status: Acute (4) Non-ischemic cardiomyopathy Current Visit: Yes Status: Chronic (5) Chronic respiratory failure Current Visit: No Status: Chronic Qualifiers: Respiratory failure complication: R (6) ESRD (end stage renal disease) on dialysis Current Visit: No Status: Chronic (7) Anemia Current Visit: Yes Status: Chronic Qualifiers: Anemia type: A Iron deficiency anemia type: I Vitamin B12 deficiency anemia type: V Folate deficiency anemia type: F Bone marrow failure anemia type: B Hemolytic anemia type: H Other causes of anemia: O (8) HTN (hypertension) Current Visit: No Status: Chronic Qualifiers: Hypertension type: essential hypertension Qualified Code(s): I10 - Essential (primary) hypertension (9) Observed sleep apnea Current Visit: Yes Status: Chronic (10) HIV disease Current Visit: Yes Status: Chronic Subjective Date of service: 02/21/17 Principal diagnosis: acute on chronic systolic heart failure Objective Vital Signs Temp Pulse Pulse Pulse Pulse Resp Resp 02/21/17 11:15 100 H 02/21/17 11:00 98 H 02/21/17 10:45 100 H 02/21/17 10:30 98.3 F 96 H 16 02/21/17 08:50 96 H 16 02/21/17 08:49 98.2 F 94 H 20 02/21/17 08:36 02/21/17 08:35 94 H 18 02/21/17 04:10 98.3 F 99 H 20 02/21/17 01:05 98.6 F 94 H 20 02/20/17 22:20 106 H 02/20/17 21:54 98 H 18 02/20/17 21:43 02/20/17 21:37 100 H 99 H 20 18 02/20/17 19:43 102 H 20 02/20/17 17:55 97.6 F 106 H 26 H 02/20/17 17:25 106 H 02/20/17 17:15 102 H 02/20/17 17:00 104 H 02/20/17 16:45 98 H 02/20/17 16:30 98 H 02/20/17 16:15 96 H 02/20/17 16:00 102 H 02/20/17 15:45 98 H 02/20/17 15:30 100 H 02/20/17 15:15 97 H 02/20/17 15:00 96 H 02/20/17 14:45 93 H 02/20/17 14:30 92 H 02/20/17 14:15 94 H 02/20/17 14:03 93 H 20 02/20/17 14:00 90 02/20/17 13:53 90 20 02/20/17 13:45 90 02/20/17 13:30 91 H 02/20/17 13:25 91 H 02/20/17 13:05 97.6 F 91 H 26 H BP BP Pulse Ox 02/21/17 11:15 145/83 02/21/17 11:00 157/82 02/21/17 10:45 142/75 02/21/17 10:30 131/84 02/21/17 08:50 02/21/17 08:49 137/79 97 02/21/17 08:36 96 02/21/17 08:35 02/21/17 04:10 129/70 98 02/21/17 01:05 122/65 94 02/20/17 22:20 02/20/17 21:54 02/20/17 21:43 99 02/20/17 21:37 137/70 98 02/20/17 19:43 98 02/20/17 17:55 149/81 02/20/17 17:25 149/81 02/20/17 17:15 163/79 02/20/17 17:00 168/85 02/20/17 16:45 155/82 02/20/17 16:30 154/80 02/20/17 16:15 157/77 02/20/17 16:00 159/84 02/20/17 15:45 151/87 02/20/17 15:30 152/84 02/20/17 15:15 156/83 02/20/17 15:00 153/85 02/20/17 14:45 155/85 02/20/17 14:30 148/64 02/20/17 14:15 137/78 02/20/17 14:03 02/20/17 14:00 147/81 02/20/17 13:53 03/29/17 13:45 138/81 02/20/17 13:30 145/85 02/20/17 13:25 147/80 02/20/17 13:05 147/80 - Physical Examination General: No Apparent Distress HEENT: Positive: PERRL, Normocephaly, Mucus Membranes Moist Neck: Positive: neck supple, trachea midline Neuro: Positive: Grossly Intact Abdomen: Positive: Soft, Distended Skin: Positive: Clear. Negative: Rash Extremities: Present: +3 Edema (chronic changes) - Labs and Meds Cardiac Enzymes 02/21/17 Range/Units 04:49 AST 21 (5-40) units/L CBC 02/21/17 Range/Units 04:49 WBC 4.5 (4.5-11.0) K/mm3 RBC 3.69 (3.65-5.03) M/mm3 Hgb 9.4 L (11.8-15.2) gm/dl Hct 30.8 L (35.5-45.6) % Plt Count 149 (140-440) K/mm3 Lymph # Wardrobe Assistant [place] # Wardrobe Assistant Eos # Wardrobe Assistant Baso # Wardrobe Assistant Comprehensive Metabolic Panel 02/21/17 Range/Units 04:49 Sodium 142 D (137-145) mmol/L Potassium 4.3 (3.6-5.0) mmol/L Chloride 99.3 (98-107) mmol/L Carbon Dioxide 25 (22-30) mmol/L BUN 19 (9-20) mg/dL Creatinine 5.3 H (0.8-1.5) mg/dL Glucose 78 (75-100) mg/dL Calcium 8.8 (8.4-10.2) mg/dL AST 21 (5-40) units/L ALT 12 (7-56) units/L Alkaline Phosphatase 318 H (35-129) units/L Total Protein 8.2 (6.3-8.2) g/dL Albumin 2.9 L (3.9-5) g/dL - Imaging and Cardiology EKG: report reviewed (NSR -no acute st t wave changes) Echo: report reviewed (01/2017: EF 20-25%, diastolic dysfunction, mild-moderate MR) - EKG Sinus rhythms and dysrhythmias: sinus rhythm Chamber hypertrophy or enlargement: left ventricular hypertro Repolarization changes or abnormalities: repolarization abn secondary to ventricular hypertrophy
[2017-02-21] MEDS: PROCRIT IV PRN (13:55)
[2017-02-21] MEDS: PREZISTA PO SCH (15:10)
[2017-02-21] MEDS: NORVIR PO SCH (15:10)
[2017-02-21] MEDS: PROTONIX PO SCH (15:11)
[2017-02-21] MEDS: ZIAGEN PO SCH (15:11)
[2017-02-21] MEDS: DAPSONE PO SCH (15:11)
[2017-02-21] MEDS: NEURONTIN PO SCH (15:11)
[2017-02-21] MEDS: EPIVIR PO SCH (15:12)
[2017-02-21] MEDS: COREG PO SCH (15:20)
[2017-02-21] MEDS: ZAROXOLYN PO SCH (15:20)
--- NOTE | 2017-02-21 23:28 | Progress Note ---
Hospitalist Physical - Constitutional Vitals: Temp Pulse Resp BP Pulse Ox 98.8 F 94 H 20 99/50 92 02/21/17 21:08 02/21/17 21:08 02/21/17 21:08 02/21/17 21:08 02/21/17 21:08 General appearance: Present: no acute distress, well-nourished Results - Labs CBC & Chem 7: 02/21/17 04:49 02/21/17 04:49 Labs: Laboratory Last Values WBC 4.5 K/mm3 (4.5-11.0) 02/21/17 04:49 RBC 3.69 M/mm3 (3.65-5.03) 02/21/17 04:49 Hgb 9.4 gm/dl (11.8-15.2) L 02/21/17 04:49 Hct 30.8 % (35.5-45.6) L 02/21/17 04:49 MCV 83 fl (84-94) L 02/21/17 04:49 MCH 26 pg (28-32) L 02/21/17 04:49 MCHC 31 % (32-34) L 02/21/17 04:49 RDW 21.8 % (13.2-15.2) H 02/21/17 04:49 Plt Count 149 K/mm3 (140-440) 02/21/17 04:49 Lymph % (Auto) Pipe [employer] Furnace Installer 02/21/17 04:49 [place] % (Auto) Pipe [employer] Furnace Installer 02/21/17 04:49 Eos % (Auto) Pipe [employer] Furnace Installer 02/21/17 04:49 Baso % (Auto) Pipe [employer] Steam [employer] Furnace Installer 02/21/17 04:49 Lymph # Pipe [employer] Steam [employer] Furnace Installer 02/21/17 04:49 [place] # Pipe Or Steam [employer]itter Furnace Installer 02/21/17 04:49 Eos # Pipe Or Steam Fitter Furnace Installer 02/21/17 04:49 Baso # Pipe Or Steam Fitter Furnace Installer 02/21/17 04:49 Seg Neutrophils % Pipe [employer] Steam [employer] Furnace Installer 02/21/17 04:49 Seg Neutrophils # Pipe Or Steam [employer] Furnace Installer 02/21/17 04:49 PT 16.0 Sec. (12.2-14.9) H 02/11/17 14:07 INR 1.29 (0.87-1.13) H 02/11/17 14:07 APTT 37.1 Sec. (24.2-36.6) H 02/11/17 14:07 Sodium 142 mmol/L (137-145) D 02/21/17 04:49 Potassium 4.3 mmol/L (3.6-5.0) 02/21/17 04:49 Chloride 99.3 mmol/L (98-107) 02/21/17 04:49 Carbon Dioxide 25 mmol/L (22-30) 02/21/17 04:49 Anion Gap 22 mmol/L 02/21/17 04:49 BUN 19 mg/dL (9-20) 02/21/17 04:49 Creatinine 5.3 mg/dL (0.8-1.5) H 02/21/17 04:49 Estimated GFR 15 ml/min 02/21/17 04:49 BUN/Creatinine Ratio 3.58 % 02/21/17 04:49 Glucose 78 mg/dL (75-100) 02/21/17 04:49 Calcium 8.8 mg/dL (8.4-10.2) 02/21/17 04:49 Phosphorus 2.7 mg/dL (2.5-4.5) 02/21/17 04:49 Total Bilirubin 0.6 mg/dL (0.1-1.2) 02/21/17 04:49 AST 21 units/L (5-40) 02/21/17 04:49 ALT 12 units/L (7-56) 02/21/17 04:49 Alkaline Phosphatase 318 units/L (35-129) H 02/21/17 04:49 Total Creatine Kinase 37 units/L (55-170) L 02/12/17 04:50 CK-MB (CK-2) 3.0 ng/mL (0.0-4.0) 02/12/17 04:50 CK-MB (CK-2) Rel Index 8.1 (0-4) H 02/12/17 04:50 Troponin T 0.039 ng/mL (0.00-0.029) H 02/12/17 04:50 NT-Pro-B Natriuret Pep 39745 pg/mL (0-450) H 02/11/17 13:36 Total Protein 8.2 g/dL (6.3-8.2) 02/21/17 04:49 Albumin 2.9 g/dL (3.9-5) L 02/21/17 04:49 Albumin/Globulin Ratio 0.5 % 02/21/17 04:49 Triglycerides 64 mg/dL (2-149) 02/11/17 13:36 Cholesterol 101 mg/dL (50-199) 02/11/17 13:36 LDL Cholesterol Direct 50 mg/dL (50-130) 02/11/17 13:36 HDL Cholesterol 39 mg/dL (40-59) L 02/11/17 13:36 Cholesterol/HDL Ratio 2.58 % 02/11/17 13:36
[2017-02-22] MEDS: COREG PO SCH ×3 (00:01→21:04)
[2017-02-22] MEDS: ISORDIL TITRADOSE PO SCH ×4 (00:01→21:05)
[2017-02-22] MEDS: DAPSONE PO SCH ×3 (00:03→21:16)
[2017-02-22] MEDS: DUONEB 0.5 MG-3 MG/3 ML SOLN IH SCH ×4 (01:43→19:41)
[2017-02-22] MEDS: MORPHINE IV PRN ×3 (05:32→15:07)
[2017-02-22] MEDS: PULMICORT IH SCH ×2 (09:20→19:41)
[2017-02-22] MEDS: BROVANA NEBU IH SCH ×2 (09:20→19:41)
[2017-02-22] MEDS: LASIX IV SCH ×3 (09:39→21:08)
[2017-02-22] MEDS: BENADRYL PO PRN (09:44)
--- NOTE | 2017-02-22 10:16 | Discharge Summary ---
Providers - Providers Date of Admission: 02/11/17 21:21 Date of discharge: 02/22/17 Attending physician: DONA TROTTER 02/11/17 Consult to Cardiac Rehabilitation [CONS] Routine Reason For Exam: Phase I 02/11/17 21:26 Consult to Physician [CONS] Routine Consulting Provider: MISAEL RODRIGUEZ Reason For Exam: esrd Place consult to:: renal Notified:: yes Phone number called:: [phone] (cell) Was contact made?: Yes If yes, spoke with:: rosa Time called:: 09:19 02/11/17 21:28 Consult to Physician [CONS] Routine Consulting Provider: JC PALMER Reason For Exam: chest pain Place consult to:: [email or web address] Notified:: yes Phone number called:: on floor Was contact made?: Yes If yes, spoke with:: alex nolasco Time called:: 09:23 Primary care physician: DISTRIBUT[employer] Hospitalization Condition: Stable Disposition: DISCHARGED TO HOME OR SELFCARE Time spent for discharge: 40 min Exam - Constitutional Vitals: Temp Pulse Resp BP Pulse Ox 98.6 F 97 H 22 143/87 94 02/22/17 08:32 02/22/17 08:32 02/22/17 08:32 02/22/17 08:32 02/22/17 08:32 Plan Activity: advance as tolerated Diet: low cholesterol, low salt, diabetic, renal Special Instructions: record daily weights, other (fluid restriction 1000mL) Follow up with: OUSMANE COREA MD [Primary Care Provider] - 3-5 Days VINCENT CHA MD [Staff Physician] - 7 Days JATINDER FRAGOSO MD [Staff Physician] - 3 Days Prescriptions: AtorvaSTATin [Lipitor] 40 mg PO QHS #30 tablet Abacavir [Ziagen TAB] 600 mg PO DAILY #60 tablet Arformoterol Nebu [Brovana Nebu] 15 mcg IH Q12HRT #1 ml Budesonide [Pulmicort Respules] 0.5 mg IH Q12HRT #1 nebu Calcium Acetate [Phoslo] 667 mg PO TIDWM #90 capsule Carvedilol [Coreg] 25 mg PO BID #60 tablet Dapsone 100 mg PO BID #60 tablet Darunavir [Prezista] 800 mg PO DAILY #30 tablet Furosemide [Lasix TAB] 40 mg PO TID #90 tablet Gabapentin [Neurontin] 100 mg PO BID #60 capsule hydrALAZINE [Apresoline TAB] 100 mg PO TID #90 tab Ipratropium/Albuterol Sulfate [Duoneb 0.5 mg-3 mg/3 ml Soln] 1 ampul IH Q6HRT # 1 ampul.neb Isosorbide Dinitrate [Isordil Titradose] 40 mg PO Q8HR #180 tablet lamiVUDine [Epivir NICU] 50 mg PO DAILY 30 Days Metolazone [Zaroxolyn] 10 mg PO QDAY #60 tablet Pantoprazole [Protonix TAB] 40 mg PO QDAY #30 tablet Ritonavir [Norvir] 100 mg PO QDAY #30 tab Pending Studies D/C after HD
[2017-02-22] MEDS: APRESOLINE PO SCH ×4 (10:18→21:05)
--- NOTE | 2017-02-22 10:53 | Progress Note ---
Assessment and Plan Stable cardiac status. Continue current management. Follow up appointment with Dr. Vicente in the [place] office on 03/13/17 at 2:15 pm. - Patient Problems (1) Atypical chest pain Current Visit: Yes Status: Resolved (2) Elevated troponin Current Visit: Yes Status: Acute (3) Acute on chronic systolic heart failure Current Visit: Yes Status: Acute (4) Non-ischemic cardiomyopathy Current Visit: Yes Status: Chronic (5) Chronic respiratory failure Current Visit: No Status: Chronic Qualifiers: Respiratory failure complication: R (6) ESRD (end stage renal disease) on dialysis Current Visit: No Status: Chronic (7) Anemia Current Visit: Yes Status: Chronic Qualifiers: Anemia type: A Iron deficiency anemia type: I Vitamin B12 deficiency anemia type: V Folate deficiency anemia type: F Bone marrow failure anemia type: B Hemolytic anemia type: H Other causes of anemia: O (8) HTN (hypertension) Current Visit: No Status: Chronic Qualifiers: Hypertension type: essential hypertension Qualified Code(s): I10 - Essential (primary) hypertension (9) Observed sleep apnea Current Visit: Yes Status: Chronic (10) HIV disease Current Visit: Yes Status: Chronic Subjective Date of service: 02/22/17 Principal diagnosis: acute on chronic systolic heart failure Interval history: The patient is resting in bed. He feels better today. Swelling improved. Sinus rhythm on the monitor. Objective Last Vital Signs Temp 98.6 F 02/22/17 08:32 Pulse 97 H 02/22/17 08:32 Resp 22 02/22/17 08:32 BP 143/87 02/22/17 08:32 Pulse Ox 94 02/22/17 08:32 - Physical Examination General: No Apparent Distress HEENT: Positive: PERRL, Normocephaly, Mucus Membranes Moist Neck: Positive: neck supple, trachea midline Cardiac: Positive: Reg Rate and Rhythm, S1/S2 Lungs: Positive: clear to auscultation Neuro: Positive: Grossly Intact Abdomen: Positive: Soft, Distended Skin: Positive: Clear. Negative: Rash Extremities: Present: +3 Edema (chronic changes) - Imaging and Cardiology EKG: report reviewed (NSR -no acute st t wave changes) Echo: report reviewed (01/2017: EF 20-25%, diastolic dysfunction, mild-moderate MR) - Telemetry EKG Rhythm: Sinus Rhythm - EKG Sinus rhythms and dysrhythmias: sinus rhythm Chamber hypertrophy or enlargement: left ventricular hypertro Repolarization changes or abnormalities: repolarization abn secondary to ventricular hypertrophy
[2017-02-22] MEDS: PHOSLO PO SCH ×3 (12:44→18:02)
[2017-02-22] MEDS: NORVIR PO SCH (12:44)
[2017-02-22] MEDS: NEURONTIN PO SCH ×3 (12:44→21:05)
[2017-02-22] MEDS: ZIAGEN PO SCH (12:44)
[2017-02-22] MEDS: PREZISTA PO SCH (12:44)
[2017-02-22] MEDS: EPIVIR PO SCH (12:45)
[2017-02-22] MEDS: PROTONIX PO SCH (12:45)
[2017-02-22] MEDS: ZAROXOLYN PO SCH (12:46)
--- NOTE | 2017-02-22 16:20 | Progress Note ---
Assessment and Plan - Patient Problems (1) ESRD (end stage renal disease) on dialysis Current Visit: No Status: Chronic Plan to address problem: Ok to be discharged home today from renal standpoint. Patient to follow-up with his outpatient [facility] and to resume outpatient HD at his clinic. Fluid restriction of 1000 ml per day Obtain daily weights Renally dose medications Monitor I/O's (2) HTN (hypertension) Current Visit: No Status: Chronic Qualifiers: Hypertension type: essential hypertension Qualified Code(s): I10 - Essential (primary) hypertension Plan to address problem: Blood pressures are stable (3) HIV positive Current Visit: Yes Status: Chronic Plan to address problem: On anti-retrovirals (4) Chest pain Current Visit: No Status: Acute Qualifiers: Chest pain type: unspecified Qualified Code(s): R07.9 - Chest pain, unspecified Plan to address problem: No acute EKG changes, Stress MPI 12/2015: No ischemia- per Cardiology Echocardiogram EF: 20-25% Subjective Date of service: 02/22/17 Principal diagnosis: acute on chronic systolic heart failure Interval history: Seen sitting up in chair dressed in clothes preparing to go home. Objective - Vital Signs Vital signs: Vital Signs - 12hr 02/22/17 02/22/17 02/22/17 05:32 08:32 09:20 Temperature 98.3 F 98.6 F Pulse Rate 87 Pulse Rate [ 96 H Anterior Bilateral Throughout] Pulse Rate [ 87 Apical] Pulse Rate [ 97 H Right Radial] Respiratory 20 22 Rate Respiratory 20 Rate [Anterior Bilateral Throughout] Blood Pressure 132/85 Blood Pressure 132/85 143/87 [Right Arm] O2 Sat by Pulse 99 94 99 Oximetry 02/22/17 02/22/17 02/22/17 09:30 10:00 10:20 Temperature 98.6 F Pulse Rate 98 H 94 H Pulse Rate [ 100 H Anterior Bilateral Throughout] Pulse Rate [ Apical] Pulse Rate [ Right Radial] Respiratory 36 H Rate Respiratory 20 Rate [Anterior Bilateral Throughout] Blood Pressure 132/68 Blood Pressure [Right Arm] O2 Sat by Pulse Oximetry 02/22/17 02/22/17 02/22/17 10:40 10:45 11:00 Temperature Pulse Rate 92 H 94 H 93 H Pulse Rate [ Anterior Bilateral Throughout] Pulse Rate [ Apical] Pulse Rate [ Right Radial] Respiratory Rate Respiratory Rate [Anterior Bilateral Throughout] Blood Pressure 142/70 160/81 155/87 Blood Pressure [Right Arm] O2 Sat by Pulse Oximetry 02/22/17 02/22/17 02/22/17 11:15 11:24 11:30 Temperature 99.0 F Pulse Rate 93 H 96 H Pulse Rate [ Anterior Bilateral Throughout] Pulse Rate [ Apical] Pulse Rate [ 93 H Right Radial] Respiratory 20 Rate Respiratory Rate [Anterior Bilateral Throughout] Blood Pressure 159/87 154/82 Blood Pressure [Right Arm] O2 Sat by Pulse Oximetry 02/22/17 02/22/17 02/22/17 11:45 12:00 12:15 Temperature Pulse Rate 98 H 94 H 96 H Pulse Rate [ Anterior Bilateral Throughout] Pulse Rate [ Apical] Pulse Rate [ Right Radial] Respiratory Rate Respiratory Rate [Anterior Bilateral Throughout] Blood Pressure 173/77 136/77 136/74 Blood Pressure [Right Arm] O2 Sat by Pulse Oximetry 02/22/17 02/22/17 02/22/17 12:30 12:45 13:00 Temperature Pulse Rate 100 H 100 H 100 H Pulse Rate [ Anterior Bilateral Throughout] Pulse Rate [ Apical] Pulse Rate [ Right Radial] Respiratory Rate Respiratory Rate [Anterior Bilateral Throughout] Blood Pressure 135/71 141/70 132/67 Blood Pressure [Right Arm] O2 Sat by Pulse Oximetry 02/22/17 02/22/17 02/22/17 13:15 13:30 13:45 Temperature Pulse Rate 103 H 102 H 100 H Pulse Rate [ Anterior Bilateral Throughout] Pulse Rate [ Apical] Pulse Rate [ Right Radial] Respiratory Rate Respiratory Rate [Anterior Bilateral Throughout] Blood Pressure 127/66 140/65 147/75 Blood Pressure [Right Arm] O2 Sat by Pulse Oximetry 02/22/17 02/22/17 02/22/17 13:46 13:56 14:00 Temperature Pulse Rate 101 H Pulse Rate [ 102 H 100 H Anterior Bilateral Throughout] Pulse Rate [ Apical] Pulse Rate [ Right Radial] Respiratory Rate Respiratory 20 20 Rate [Anterior Bilateral Throughout] Blood Pressure 140/69 Blood Pressure [Right Arm] O2 Sat by Pulse Oximetry 02/22/17 02/22/17 02/22/17 14:10 14:27 14:31 Temperature 99 F Pulse Rate 104 H 102 H Pulse Rate [ Anterior Bilateral Throughout] Pulse Rate [ Apical] Pulse Rate [ Right Radial] Respiratory 24 Rate Respiratory Rate [Anterior Bilateral Throughout] Blood Pressure 140/60 131/56 Blood Pressure [Right Arm] O2 Sat by Pulse 99 Oximetry 02/22/17 02/22/17 15:07 15:33 Temperature 98.8 F Pulse Rate Pulse Rate [ Anterior Bilateral Throughout] Pulse Rate [ Apical] Pulse Rate [ 104 H Right Radial] Respiratory 24 20 Rate Respiratory Rate [Anterior Bilateral Throughout] Blood Pressure Blood Pressure 119/59 [Right Arm] O2 Sat by Pulse 97 Oximetry - General Appearance General appearance: well-developed, appears stated age, chronically ill, fatigue EENT: ATNC, PERRL, hearing intact, vision intact Neck: no JVD, supple Respiratory: Present: Decreased Breath Sounds Cardiology: regular, S1S2 Gastrointestinal: normoactive bowel sounds Integumentary: warm and dry Neurologic: alert and oriented x3 Musculoskeletal: joint swelling - Lab 02/21/17 04:49 02/21/17 04:49 Most recent lab results Calcium 8.8 mg/dL (8.4-10.2) 02/21/17 04:49 Phosphorus 2.7 mg/dL (2.5-4.5) 02/21/17 04:49
[2017-02-22] MEDS ORDERED: NACL 0.9 (PRIMING MACHINE ONLY DIALYSIS) MC ONE (18:23)
[2017-02-22 21:08] VITALS: BP 157/90
--- NOTE | 2017-02-25 07:30 | Vascular Lab Report ---
LOWER EXTREMITY VENOUS DUPLEX: REASON FOR EXAM: Swelling bilaterally. COMMENTS ON THE RIGHT: All veins visualized are freely compressible without evidence of internal echogenicity. Flow is spontaneous and phasic throughout. COMMENTS ON THE LEFT: All veins visualized are freely compressible without evidence of internal echogenicity. Flow is spontaneous and phasic throughout. IMPRESSION: No evidence of acute or chronic deep venous thrombosis in either lower extremity.
== END 2017-02-22 23:30 | disposition home or self-care (01) | DRG 280 ==
LOC: ED 12:41 → 4A 21:21
PROVIDERS: ADMIT Internal Medicine; ATTEND Internal Medicine
PROC: 5A09357 Assistance with Respiratory Ventilation, Less than 24 Consecutive Hours, Continuous Positive Airway Pressure (ICD-10-PCS; 2017-02-16)
PROC: 5A1D60Z (ICD-10-PCS; principal; 2017-02-22)
DX: I21.4 Non-ST elevation (NSTEMI) myocardial infarction (principal); I50.23 Acute on chronic systolic (congestive) heart failure; B20 Human immunodeficiency virus [HIV] disease; N18.6 End stage renal disease; E87.5 Hyperkalemia; I13.2 Hypertensive heart and chronic kidney disease with heart failure and with stage 5 chronic kidney disease, or end stage renal disease; J45.909 Unspecified asthma, uncomplicated; I25.10 Atherosclerotic heart disease of native coronary artery without angina pectoris; F17.200 Nicotine dependence, unspecified, uncomplicated; H40.9 Unspecified glaucoma; K74.60 Unspecified cirrhosis of liver; N17.9 Acute kidney failure, unspecified; R07.89 Other chest pain; I42.9 Cardiomyopathy, unspecified; J41.0 Simple chronic bronchitis; J96.11 Chronic respiratory failure with hypoxia; G47.33 Obstructive sleep apnea (adult) (pediatric); Z88.6 Allergy status to analgesic agent; Z88.8 Allergy status to other drugs, medicaments and biological substances; Z91.012 Allergy to eggs; Z91.011 Allergy to milk products; Z91.013 Allergy to seafood; Z99.2 Dependence on renal dialysis; Z88.0 Allergy status to penicillin; Z91.018 Allergy to other foods; Z91.048 Other nonmedicinal substance allergy status
CPT/HCPCS: 36415; 71010; 80048; 80053; 80061; 82550; 82553; 83880; 84100; 84484; 85025; 85610; 85730; 93005; 93010; 93306; 93970; 93975; 94640; 94660; 94760; 96374; 96375; 99291; A9270-GY; J0885; J1170; J1200; J1940; J2270; J2405; J7030; J7070